=== PATIENT | female | born 1950 | race African-American/Black ===

== ENCOUNTER → 2016-08-10 | Outpatient (CLI) | payer MEDICARE, OTHER ==
--- NOTE | 2016-08-10 10:18 | MM ---
Reason for exam: follow-up at short interval from prior study. Last mammogram was performed 8 months ago. History: Patient is postmenopausal. Benign MG stereo VAD BX LT of the left breast, December 15, 2015. Benign US breast aspiration single LT of the left breast, December 15, 2015. Benign US biopsy breast VAD LT of the left breast, December 15, 2015. Benign US biopsy breast add'l VAD LT of the left breast, December 15, 2015. Reductions of both breasts, January 2005. Took hormonal contraceptives for 8 years beginning at age 16. Took estrogen for 3 years beginning at age 40. Physical Findings: Nurse did not find any significant physical abnormalities on exam. MG 3D Diag Mammo W/Cad SIRENA Bilateral CC and MLO view(s) were taken. Prior study comparison: December 01, 2015, left breast MG 3d diag mammo w/cad LT. March 25, 2015, bilateral MG diagnostic mammo w CAD SIRENA. The breast tissue is heterogeneously dense. This may lower the sensitivity of mammography. Previous ultrasound biopsies in the left breast. There is chronic nodularity bilaterally. No significant new findings when compared with previous films. These results were verbally communicated with the patient and result sheet given to the patient on 08/10/16. ASSESSMENT: Benign, BI-RAD 2 RECOMMENDATION: Routine screening mammogram of both breasts in 1 year.
== END | disposition home or self-care (01) ==
LOC: RADMAMWWP 08:17
PROVIDERS: ATTEND Surgery
DX: R92.8 Other abnormal and inconclusive findings on diagnostic imaging of breast (principal)
CPT/HCPCS: G0204; G0279

== ENCOUNTER 2017-11-12 04:54 | Inpatient (IN) | payer MEDICARE, OTHER ==
--- NOTE | 2017-11-12 05:15 | ED ---
Altered Mental Status HPI - General Chief Complaint: Altered Mental Status Stated Complaint: Bronchitis, Altered Mental Status Time Seen by Provider: 11/12/17 05:04 Source: patient Mode of arrival: wheelchair Limitations: altered mental status - History of Present Illness Initial Comments: This patient is a 67-year-old woman who presents to be evaluated for altered mental status. Patient and her daughter are jointly giving history. Patient's daughter reports that she had spoken with her mother yesterday, approximately 18 hours ago, and the patient was feeling a little under the weather, but not awful. The patient's daughter states that at 3 this morning the patient called her to state that she was feeling worse. The patient was reportedly somewhat confused and disoriented. Patient is maintaining that she just feels generally unwell, being fatigued and having generalized weakness. She denies any focal complaint. She is not having any pain currently other than chronic back pain for which she does take home pain medication. She is not having chest pain, headache, neck pain, or abdominal pain. No dyspnea. She does have a cough but they note that she is currently being treated for bronchitis. No change in urination or bowel movements. MD Complaint: altered mental status, confusion -: hour(s) Severity: moderate Consistency of Symptoms: getting worse Context: history of similar presentation - Related Data Home Medications Medication Instructions Recorded Confirmed Amitriptyline HCl [Elavil] 01/11/15 09/01/15 Hydrocodone/Acetaminophen [Vicodin 1 each PO Q4HR PRN 01/11/15 09/01/15 5-300 mg Tablet] Ketorolac [Toradol] 01/11/15 09/01/15 Losartan-Hctz 50-12.5 mg [Hyzaar 1 tab PO DAILY 01/11/15 09/01/15 50-12.5] Morphine Sulfate ER [Ms Contin] 1 tab PO BID 01/11/15 09/01/15 Rosuvastatin [Crestor] 1 tab PO HS 01/11/15 09/01/15 Etodolac [Lodine] 400 mg PO PRN 09/01/15 09/01/15 Previous Rx's Medication Instructions Recorded Azithromycin [Zithromax Z-pack] 0 mg PO DIRECTED #6 tab 09/01/15 Allergies Allergy/AdvReac Type Severity Reaction Status Date / Time No Known Allergies Allergy Verified 11/12/17 05:01 Review of Systems ROS Statement: Those systems with pertinent positive or pertinent negative responses have been documented in the HPI. ROS Other: All systems not noted in ROS Statement are negative. Constitutional: Reports: weakness (Generalized). Denies: fever, chills Respiratory: Reports: cough. Denies: dyspnea, wheezes, hemoptysis Cardiovascular: Denies: chest pain, edema, syncope Gastrointestinal: Denies: abdominal pain, vomiting, diarrhea Genitourinary: Denies: dysuria, hematuria Musculoskeletal: Reports: back pain (Chronic) Skin: Denies: rash Neurological: Reports: weakness (Patient has some mild residual left-sided weakness related to a stroke.). Denies: headache, numbness Past Medical History Past Medical History: CVA/TIA, Hyperlipidemia, Hypertension, Musculoskeletal Disorder Additional Past Medical History / Comment(s): BACK PAIN, History of Any Multi-Drug Resistant Organisms: None Reported Past Surgical History: Hysterectomy Additional Past Surgical History / Comment(s): neurostimulator 06/2013. hammer toe 10/22, Past Psychological History: No Psychological Hx Reported Smoking Status: Former smoker Past Alcohol Use History: None Reported Past Drug Use History: None Reported General Exam Limitations: altered mental status General appearance: alert, in no apparent distress, obese Head exam: Present: atraumatic, normocephalic Eye exam: Present: normal appearance, PERRL, EOMI. Absent: scleral icterus, conjunctival injection ENT exam: Present: normal oropharynx Respiratory exam: Present: rhonchi. Absent: respiratory distress, wheezes, rales, stridor, accessory muscle use, decreased breath sounds Cardiovascular Exam: Present: regular rate, normal rhythm, normal heart sounds. Absent: systolic murmur, diastolic murmur, rubs, gallop GI/Abdominal exam: Present: soft. Absent: distended, tenderness, guarding, rebound, mass Extremities exam: Present: normal inspection, normal capillary refill. Absent: pedal edema, calf tenderness Neurological exam: Present: alert, motor sensory deficit (There is some mild subjective weakness of both the upper and lower extremity on the left, still greater than 4 out of 5). Absent: oriented X3 (Patient has oriented to person and place but not exact date.), CN II-XII intact (Mild left facial droop) Skin exam: Present: warm, dry, intact, normal color. Absent: rash Course Vital Signs 11/12/17 11/12/17 04:57 07:06 Temperature 99.9 F H Pulse Rate 99 Respiratory 18 Rate Blood Pressure 190/92 176/76 O2 Sat by Pulse 98 Oximetry Medical Decision Making - Medical Decision Making Patient's 67-year-old woman presenting for altered mental status. She has had a number days of what they had considered be bronchitis, mainly cough with some sputum. There does appear to be a bit of a retrocardiac infiltrate, and we'll treat patient for pneumonia and early sepsis. - Lab Data Result diagrams: 11/12/17 05:10 11/12/17 05:10 Lab Results 11/12/17 11/12/17 11/12/17 Range/Units 05:05 05:10 05:10 WBC 11.8 H (3.8-10.6) k/uL RBC 4.33 (3.80-5.40) m/uL Hgb 12.9 (11.4-16.0) gm/dL Hct 38.8 (34.0-46.0) % MCV 89.5 (80.0-100.0) fL MCH 29.7 (25.0-35.0) pg MCHC 33.2 (31.0-37.0) g/dL RDW 13.7 (11.5-15.5) % Plt Count 341 (150-450) k/uL Neutrophils % 81 % Lymphocytes % 13 % Monocytes % 4 % Eosinophils % 1 % Basophils % 0 % Neutrophils # 9.5 H (1.3-7.7) k/uL Lymphocytes # 1.5 (1.0-4.8) k/uL Monocytes # 0.5 (0-1.0) k/uL Eosinophils # 0.1 (0-0.7) k/uL Basophils # 0.0 (0-0.2) k/uL PT (9.0-12.0) sec INR (<1.2) APTT (22.0-30.0) sec Sodium 145 (137-145) mmol/L Potassium 3.8 (3.5-5.1) mmol/L Chloride 102 (98-107) mmol/L Carbon Dioxide 27 (22-30) mmol/L Anion Gap 16 mmol/L BUN 10 (7-17) mg/dL Creatinine 0.70 (0.52-1.04) mg/dL Est GFR (CKD-EPI)AfAm >90 (>60 ml/min/1.73 sqM) Est GFR (CKD-EPI)NonAf 89 (>60 ml/min/1.73 sqM) Glucose 155 H (74-99) mg/dL POC Glucose (mg/dL) 144 H (75-99) mg/dL POC Glu Squeegee Operator ID Kana, Ghislaine Plasma Lactic Acid Erik (0.7-2.0) mmol/L Calcium 10.1 (8.4-10.2) mg/dL Total Bilirubin 0.3 (0.2-1.3) mg/dL AST 21 (14-36) U/L ALT 18 (9-52) U/L Alkaline Phosphatase 79 (38-126) U/L Troponin I (0.000-0.034) ng/mL Total Protein 7.4 (6.3-8.2) g/dL Albumin 4.5 (3.5-5.0) g/dL Urine Color Urine Appearance (Clear) Urine pH (5.0-8.0) Ur Specific [place] (1.001-1.035) Urine Protein (Negative) Urine Glucose (UA) (Negative) Urine Ketones (Negative) Urine Blood (Negative) Urine Nitrite (Negative) Urine Bilirubin (Negative) Urine Urobilinogen (<2.0) mg/dL Ur Leukocyte Esterase (Negative) Urine RBC (0-5) /hpf Urine WBC (0-5) /hpf Ur Squamous Epith Cells (0-4) /hpf Urine Bacteria (None) /hpf Urine Mucus (None) /hpf Urine Opiates Screen (NotDetected) Ur Oxycodone Screen (NotDetected) Urine Methadone Screen (NotDetected) Ur Propoxyphene Screen (NotDetected) Ur Barbiturates Screen (NotDetected) U Tricyclic Antidepress (NotDetected) Ur Phencyclidine Scrn (NotDetected) Ur Amphetamines Screen (NotDetected) U Methamphetamines Scrn (NotDetected) U Benzodiazepines Scrn (NotDetected) Urine Cocaine Screen (NotDetected) U Marijuana (THC) Screen (NotDetected) 05/06/18 05/06/18 05/06/18 Range/Units 05:10 05:10 05:10 WBC (3.8-10.6) k/uL RBC (3.80-5.40) m/uL Hgb (11.4-16.0) gm/dL Hct (34.0-46.0) % MCV (80.0-100.0) fL MCH (25.0-35.0) pg MCHC (31.0-37.0) g/dL RDW (11.5-15.5) % Plt Count (150-450) k/uL Neutrophils % % Lymphocytes % % Monocytes % % Eosinophils % % Basophils % % Neutrophils # (1.3-7.7) k/uL Lymphocytes # (1.0-4.8) k/uL Monocytes # (0-1.0) k/uL Eosinophils # (0-0.7) k/uL Basophils # (0-0.2) k/uL PT 9.8 (9.0-12.0) sec INR 1.0 (<1.2) APTT 22.4 (22.0-30.0) sec Sodium (137-145) mmol/L Potassium (3.5-5.1) mmol/L Chloride (98-107) mmol/L Carbon Dioxide (22-30) mmol/L Anion Gap mmol/L BUN (7-17) mg/dL Creatinine (0.52-1.04) mg/dL Est GFR (CKD-EPI)AfAm (>60 ml/min/1.73 sqM) Est GFR (CKD-EPI)NonAf (>60 ml/min/1.73 sqM) Glucose (74-99) mg/dL POC Glucose (mg/dL) (75-99) mg/dL POC Glu Squeegee Operator ID Plasma Lactic Acid Erik 2.5 H* (0.7-2.0) mmol/L Calcium (8.4-10.2) mg/dL Total Bilirubin (0.2-1.3) mg/dL AST (14-36) U/L ALT (9-52) U/L Alkaline Phosphatase (38-126) U/L Troponin I <0.012 (0.000-0.034) ng/mL Total Protein (6.3-8.2) g/dL Albumin (3.5-5.0) g/dL Urine Color Urine Appearance (Clear) Urine pH (5.0-8.0) Ur Specific [place] (1.001-1.035) Urine Protein (Negative) Urine Glucose (UA) (Negative) Urine Ketones (Negative) Urine Blood (Negative) Urine Nitrite (Negative) Urine Bilirubin (Negative) Urine Urobilinogen (<2.0) mg/dL Ur Leukocyte Esterase (Negative) Urine RBC (0-5) /hpf Urine WBC (0-5) /hpf Ur Squamous Epith Cells (0-4) /hpf Urine Bacteria (None) /hpf Urine Mucus (None) /hpf Urine Opiates Screen (NotDetected) Ur Oxycodone Screen (NotDetected) Urine Methadone Screen (NotDetected) Ur Propoxyphene Screen (NotDetected) Ur Barbiturates Screen (NotDetected) U Tricyclic Antidepress (NotDetected) Ur Phencyclidine Scrn (NotDetected) Ur Amphetamines Screen (NotDetected) U Methamphetamines Scrn (NotDetected) U Benzodiazepines Scrn (NotDetected) Urine Cocaine Screen (NotDetected) U Marijuana (THC) Screen (NotDetected) 11/12/17 Range/Units 06:50 WBC (3.8-10.6) k/uL RBC (3.80-5.40) m/uL Hgb (11.4-16.0) gm/dL Hct (34.0-46.0) % MCV (80.0-100.0) fL MCH (25.0-35.0) pg MCHC (31.0-37.0) g/dL RDW (11.5-15.5) % Plt Count (150-450) k/uL Neutrophils % % Lymphocytes % % Monocytes % % Eosinophils % % Basophils % % Neutrophils # (1.3-7.7) k/uL Lymphocytes # (1.0-4.8) k/uL Monocytes # (0-1.0) k/uL Eosinophils # (0-0.7) k/uL Basophils # (0-0.2) k/uL PT (9.0-12.0) sec INR (<1.2) APTT (22.0-30.0) sec Sodium (137-145) mmol/L Potassium (3.5-5.1) mmol/L Chloride (98-107) mmol/L Carbon Dioxide (22-30) mmol/L Anion Gap mmol/L BUN (7-17) mg/dL Creatinine (0.52-1.04) mg/dL Est GFR (CKD-EPI)AfAm (>60 ml/min/1.73 sqM) Est GFR (CKD-EPI)NonAf (>60 ml/min/1.73 sqM) Glucose (74-99) mg/dL POC Glucose (mg/dL) (75-99) mg/dL POC Glu Squeegee Operator ID Plasma Lactic Acid Erik (0.7-2.0) mmol/L Calcium (8.4-10.2) mg/dL Total Bilirubin (0.2-1.3) mg/dL AST (14-36) U/L ALT (9-52) U/L Alkaline Phosphatase (38-126) U/L Troponin I (0.000-0.034) ng/mL Total Protein (6.3-8.2) g/dL Albumin (3.5-5.0) g/dL Urine Color Yellow Urine Appearance Clear (Clear) Urine pH 7.5 (5.0-8.0) Ur Specific [place] 1.011 (1.001-1.035) Urine Protein Trace H (Negative) Urine Glucose (UA) Negative (Negative) Urine Ketones Trace H (Negative) Urine Blood Trace H (Negative) Urine Nitrite Negative (Negative) Urine Bilirubin 1+ H (Negative) Urine Urobilinogen <2.0 (<2.0) mg/dL Ur Leukocyte Esterase Negative (Negative) Urine RBC 6 H (0-5) /hpf Urine WBC 2 (0-5) /hpf Ur Squamous Epith Cells <1 (0-4) /hpf Urine Bacteria Few H (None) /hpf Urine Mucus Rare H (None) /hpf Urine Opiates Screen Detected H (NotDetected) Ur Oxycodone Screen Not Detected (NotDetected) Urine Methadone Screen Not Detected (NotDetected) Ur Propoxyphene Screen Not Detected (NotDetected) Ur Barbiturates Screen Not Detected (NotDetected) U Tricyclic Antidepress Detected H (NotDetected) Ur Phencyclidine Scrn Not Detected (NotDetected) Ur Amphetamines Screen Not Detected (NotDetected) U Methamphetamines Scrn Not Detected (NotDetected) U Benzodiazepines Scrn Not Detected (NotDetected) Urine Cocaine Screen Not Detected (NotDetected) U Marijuana (THC) Screen Not Detected (NotDetected) - EKG Data -: EKG Interpreted by Me EKG shows normal: sinus rhythm, axis (Normal), intervals (Normal), QRS complexes (Normal) Rate: normal (Rate approximately 94 bpm) Interpretation: nonspecific ST-T wave changes Disposition Clinical Impression: Altered mental status, Sepsis, Pneumonia Disposition: ADMITTED IP TO THIS HOSP Condition: Fair Is patient prescribed a controlled substance at d/c from ED?: No Referrals: Tan Peters DO [Primary Care Provider] - 1-2 days
[2017-11-12 05:16] LABS: Glucose,Whole Blood 144 mg/dL (75-99)
[2017-11-12] MEDS ORDERED: MORPHINE SULFATE 4 MG/ML SYRINGE IV STA (05:26)
[2017-11-12 05:39] LABS: Basophils % (A) 0 %; Eosinophils # (A) 0.1 k/uL (0-0.7); Eosinophils % (A) 1 %; HCT 38.8 % (34.0-46.0); HGB 12.9 gm/dL (11.4-16.0); Lymphocytes # (A) 1.5 k/uL (1.0-4.8); Lymphocytes % (A) 13 %; MCH 29.7 pg (25.0-35.0); MCHC 33.2 g/dL (31.0-37.0); MCV 89.5 fL (80.0-100.0); Mean Platelet Volume 6.6; Monocytes # (A) 0.5 k/uL (0-1.0); Monocytes % (A) 4 %; Neutrophils # (A) 9.5 k/uL (1.3-7.7); Neutrophils % (A) 81 %; Platelet Count 341 k/uL (150-450); RBC 4.33 m/uL (3.80-5.40); RDW 13.7 % (11.5-15.5); WBC 11.8 k/uL (3.8-10.6)
[2017-11-12 05:51] LABS: Partial Thromboplastin Time 22.4 sec (22.0-30.0); Prothrombin Time 9.8 sec (9.0-12.0)
[2017-11-12 05:52] LABS: ALT 18 U/L (9-52); AST 21 U/L (14-36); Albumin 4.5 g/dL (3.5-5.0); Alkaline Phosphatase 79 U/L (38-126); Anion Gap 16 mmol/L; Blood Urea Nitrogen 10 mg/dL (7-17); Calcium 10.1 mg/dL (8.4-10.2); Carbon Dioxide 27 mmol/L (22-30); Chloride 102 mmol/L (98-107); Glucose 155 mg/dL (74-99); Potassium 3.8 mmol/L (3.5-5.1); Sodium 145 mmol/L (137-145); Total Bilirubin 0.3 mg/dL (0.2-1.3); Total Protein 7.4 g/dL (6.3-8.2)
[2017-11-12] MEDS ORDERED: LOSARTAN-HCTZ 50-12.5 MG 1 EACH TAB PO ONE (06:45)
--- NOTE | 2017-11-12 06:57 | CT ---
PROCEDURE: CT HEAD Without Contrast HISTORY: 67-year-old female with altered mental status. COMPARISON: CT head 05/23/2010 TECHNIQUE: CT imaging was obtained through the head. Coronal and sagittal reformations were performed. DOSE: Total Exam volume computed tomography dose index (CTDIvol) = 60.3 mGy and Dose Length Product (DLP) = 1017.9 mGY-cm. This CT exam was performed using one or more of the following dose reduction techniques: automated exposure control, adjustment of the mA and/or kV according to patient size, and/or use of iterative reconstruction technique. FINDINGS: There is no evidence of acute intracranial hemorrhage, mass effect, or midline shift. The ventricles, sulci, and cisternal spaces are within normal limits for age. The tan-white matter differentiation is preserved. Intracranial arterial calcifications. The bony structures are intact. Visualized paranasal sinuses and mastoid air cells are clear. Visualized portions of the orbits are within normal limits. IMPRESSION: 1. No CT evidence of acute intracranial abnormality. 2. Other findings as detailed above.
[2017-11-12 07:21] LABS: Appearance,Urine Clear (Clear); Bacteria,Urine Few /hpf; Bilirubin,Urine 1+ (Negative); Blood,Urine Trace (Negative); Color,Urine Yellow; Glucose,Urine (UA) Negative (Negative); Ketones,Urine Trace (Negative); Leukocyte Esterase,Urine Negative (Negative); Mucus,Urine Rare /hpf; Nitrite,Urine Negative (Negative); PH, Urine 7.5 (5.0-8.0); Protein,Urine Trace (Negative); RBC,Urine 6 /hpf (0-5); Specific Gravity,Urine 1.011 (1.001-1.035); Squamous Epithelial Cell,Urine <1 /hpf (0-4); Urobilinogen,Urine <2.0 mg/dL (<2.0); WBC,Urine 2 /hpf (0-5)
[2017-11-12 07:37] LABS: Phencyclidine Screen,Urine Not Detected (NotDetected); Urn Cannabinoid Scrn Not Detected (NotDetected)
[2017-11-12 07:38] LABS: Amphetamine Screen,Urine Not Detected (NotDetected); Barbiturate Screen,Urine Not Detected (NotDetected); Benzodiazepines Screen,Urine Not Detected (NotDetected); Cocaine Screen,Urine Not Detected (NotDetected); Methadone Screen, Urine Not Detected (NotDetected); Opiate Screen,Urine Detected (NotDetected); Oxycodone Screen, Urine Not Detected (NotDetected); Tricyclic Antidepressant,Urine Detected (NotDetected)
[2017-11-12] MEDS ORDERED: LEVOFLOXACIN 750MG-D5W PMX 750 MG in DEXTROSE/WATER 1 150ML.BAG IVPB STA (08:21)
[2017-11-12] MEDS ORDERED: SODIUM CHLORIDE 0.9% 2,000 ML IV ONE (08:23)
--- NOTE | 2017-11-12 08:52 | XR ---
EXAMINATION TYPE: XR chest 2V DATE OF EXAM: 11/12/2017 HISTORY: altered mental status. REFERENCE: NONE. FINDINGS: There is a pain stimulator projecting over the thoracic spine. The heart is not enlarged. There is some increased opacity at the left lung base. There is blunting o f the CP angle. The right lung is clear. IMPRESSION: I SUSPECT SOME LEFT LOWER LOBE AIRSPACE DISEASE WELL A SMALL LEFT EFFUSION.
[2017-11-12] MEDS ORDERED: FAMOTIDINE 20 MG/2 ML VIAL IV SCH (09:00)
[2017-11-12] MEDS ORDERED: LOSARTAN-HCTZ 50-12.5 MG 1 EACH TAB PO SCH (09:00)
[2017-11-12] MEDS ORDERED: MORPHINE SULFATE ER 30 MG TABLET PO SCH (09:00)
[2017-11-12] MEDS: HYDROcodone/APAP 5-325MG 1 EACH TAB PO PRN ×3 (09:06→17:52)
[2017-11-12] MEDS ORDERED: KETOROLAC 30 MG/ML 1 ML VIAL IVP PRN (10:36)
--- NOTE | 2017-11-12 11:15 | P.HPIM ---
History of Present Illness 67-year-old pleasant female came in with comments of Cough has been going on for about 4-5 days patient started having confusion yesterday because of which patient was brought in here.. Patient is unable to bring up anything is to smoking more than 20 years ago. Patient denied any fever chills patient had low -grade fever here patient does have a elevated white blood cell count patient was found to have infiltrate in the left lower lung jaimes highly suspicious for pneumonia patient is admitted for pneumonia. Her mental status did improve patient is alert oriented times close to 2-3 patient was more confused yesterday. Patient is coughing and actually started throwing up now. Patient is on morphine for chronic low back pain. Patient denied dysuria. UA is not impressive for urinary tract infection. Review of Systems REVIEW OF SYSTEMS: CONSTITUTIONAL: No fever, no malaise, no fatigue. HEENT: No recent visual problems or hearing problems. Denied any sore throat. CARDIOVASCULAR: No chest pain, orthopnea, PND, no palpitations, no syncope. PULMONARY: No shortness of breath. GASTROINTESTINAL: No diarrhea, no nausea, no vomiting, no abdominal pain. Normoactive bowel sounds. NEUROLOGICAL: No headaches, no weakness, no numbness. HEMATOLOGICAL: Denies any bleeding or petechiae. GENITOURINARY: Denies any burning micturition, frequency, or urgency. MUSCULOSKELETAL/RHEUMATOLOGICAL: Denies any joint pain, swelling, or any muscle pain. ENDOCRINE: Denies any polyuria or polydipsia. The rest of the 14-point review of systems is negative. Past Medical History Past Medical History: CVA/TIA, Hyperlipidemia, Hypertension, Musculoskeletal Disorder, Osteoarthritis (OA) Additional Past Medical History / Comment(s): BACK PAIN, bronchitis History of Any Multi-Drug Resistant Organisms: None Reported Past Surgical History: Hysterectomy Additional Past Surgical History / Comment(s): neurostimulator lower lumbar 2012 current. hammer toe 10/22,. breast reduction 2004 Past Psychological History: No Psychological Hx Reported Smoking Status: Former smoker Past Alcohol Use History: None Reported Past Drug Use History: None Reported - Past Family History Mother Family Medical History: CVA/TIA Father Additional Family Medical History / Comment(s): bone cancer Brother(s) Additional Family Medical History / Comment(s): bone cancer Medications and Allergies Home Medications Medication Instructions Recorded Confirmed Type Amitriptyline HCl [Elavil] 150 mg PO HS 01/11/15 09/01/15 History Hydrocodone/Acetaminophen [Vicodin 1 each PO Q4HR PRN 01/11/15 09/01/15 History 5-300 mg Tablet] Ketorolac [Toradol] 01/11/15 09/01/15 History Losartan-Hctz 50-12.5 mg [Hyzaar 1 tab PO DAILY 01/11/15 09/01/15 History 50-12.5] Morphine Sulfate ER [Ms Contin] 1 tab PO BID 01/11/15 09/01/15 History Rosuvastatin [Crestor] 1 tab PO DAILY 01/11/15 09/01/15 History Azithromycin [Zithromax Z-pack] 0 mg PO DIRECTED #6 tab 09/01/15 Rx Etodolac [Lodine] 400 mg PO DAILY PRN 09/01/15 11/12/17 History Allergies Allergy/AdvReac Type Severity Reaction Status Date / Time No Known Allergies Allergy Verified 11/12/17 05:01 Physical Exam Vitals: Vital Signs Temp Pulse Pulse Resp BP BP Pulse Ox 11/12/17 10:04 99.5 F 89 20 174/84 96 11/12/17 09:00 98.8 F 92 18 181/81 99 11/12/17 07:06 176/76 11/12/17 04:57 99.9 F H 99 18 190/92 98 Intake and Output 11/11/17 11/12/17 11/12/17 22:59 06:59 14:59 Other: Weight 68.039 kg PHYSICAL EXAMINATION: GENERAL: The patient is alert and oriented x3, not in any acute distress. Well developed, well nourished. HEENT: Pupils are round and equally reacting to light. EOMI. No scleral icterus. No conjunctival pallor. Normocephalic, atraumatic. No pharyngeal erythema. No thyromegaly. CARDIOVASCULAR: S1 and S2 present. No murmurs, rubs, or gallops. PULMONARY: Crackles in the left posterior inferior lung jaimes and on for sounds ABDOMEN: Soft, nontender, nondistended, normoactive bowel sounds. No palpable organomegaly. MUSCULOSKELETAL: No joint swelling or deformity. EXTREMITIES: No cyanosis, clubbing, or pedal edema. NEUROLOGICAL: Gross neurological examination did not reveal any focal deficits. SKIN: No rashes. Results CBC & Chem 7: 11/12/17 05:10 11/12/17 05:10 Labs: Abnormal Lab Results - Last 24 Hours (Table) 11/12/17 11/12/17 11/12/17 Range/Units 05:05 05:10 05:10 WBC 11.8 H (3.8-10.6) k/uL Neutrophils # 9.5 H (1.3-7.7) k/uL Glucose 155 H (74-99) mg/dL POC Glucose (mg/dL) 144 H (75-99) mg/dL Plasma Lactic Acid Erik (0.7-2.0) mmol/L Urine Protein (Negative) Urine Ketones (Negative) Urine Blood (Negative) Urine Bilirubin (Negative) Urine RBC (0-5) /hpf Urine Bacteria (None) /hpf Urine Mucus (None) /hpf Urine Opiates Screen (NotDetected) U Tricyclic Antidepress (NotDetected) 11/12/17 11/12/17 Range/Units 05:10 06:50 WBC (3.8-10.6) k/uL Neutrophils # (1.3-7.7) k/uL Glucose (74-99) mg/dL POC Glucose (mg/dL) (75-99) mg/dL Plasma Lactic Acid Erik 2.5 H* (0.7-2.0) mmol/L Urine Protein Trace H (Negative) Urine Ketones Trace H (Negative) Urine Blood Trace H (Negative) Urine Bilirubin 1+ H (Negative) Urine RBC 6 H (0-5) /hpf Urine Bacteria Few H (None) /hpf Urine Mucus Rare H (None) /hpf Urine Opiates Screen Detected H (NotDetected) U Tricyclic Antidepress Detected H (NotDetected) Thrombosis Risk Factor Assmnt - Choose All That Apply Each Risk Factor Represents 2 Points: Age 61-74 years Thrombosis Risk Factor Assessment Total Risk Factor Score: 2 Thrombosis Risk Factor Assessment Level: Low Risk Assessment and Plan Plan: -Altered mental status secondary to toxic encephalopathy from possible pneumonia patient is on antibiotics reflux and was discontinued patient was started on Rocephin and azithromycin sputum cultures will be obtain blood cultures were ordered -Community-acquired pneumonia possible pneumococcal pneumonia lobar pneumonia and sepsis secondary to that -Chronic low back pain morphine will be held patient was started on Toradol for pain. Patient was started on GI prophylaxis -Nausea vomiting secondary to pneumonia -Type 2 diabetes mellitus: Patient resumed on home regimen Accu-Cheks and attrition of the insulin depending on her blood sugars -Hyperlipidemia Hypertension -Gastroesophageal reflux disease. For above-mentioned chronic medical problems patient resumed on continued on home medications patient blood pressure is bit elevated which is expected improvement at this end this is secondary to IV fluids
[2017-11-12] MEDS: cefTRIAXone IN SWFI 1,000 MG/10 ML SYRINGE IVP SCH (11:21)
[2017-11-12] MEDS: PANTOPRAZOLE 40 MG/10 ML VIAL IVP SCH (11:30)
[2017-11-12] MEDS: ONDANSETRON 4 MG/2 ML VIAL IVP PRN ×2 (11:30→21:04)
[2017-11-12] MEDS: IPRATROPIUM-ALBUTEROL 3 ML NEB INHALATION PRN (19:01)
[2017-11-12] MEDS ORDERED: ATORVASTATIN 10 MG TAB PO SCH (21:00)
[2017-11-12] MEDS ORDERED: AMITRIPTYLINE HCL 50 MG TAB PO SCH (21:00)
[2017-11-12] MEDS: HEPARIN SODIUM,PORCINE 5,000 UNIT/ML 1 ML VIAL SQ SCH (21:05)
[2017-11-12] MEDS: MORPHINE SULFATE ER 30 MG TABLET PO SCH (21:10)
[2017-11-13 06:28] VITALS: BP 129/73; PULSE 85; TEMP 98
[2017-11-13] MEDS: IPRATROPIUM-ALBUTEROL 3 ML NEB INHALATION PRN (06:54)
[2017-11-13] MEDS: MORPHINE SULFATE ER 30 MG TABLET PO SCH (07:42)
[2017-11-13] MEDS: cefTRIAXone IN SWFI 1,000 MG/10 ML SYRINGE IVP SCH (07:43)
[2017-11-13] MEDS: HEPARIN SODIUM,PORCINE 5,000 UNIT/ML 1 ML VIAL SQ SCH (07:43)
[2017-11-13] MEDS: PANTOPRAZOLE 40 MG/10 ML VIAL IVP SCH (07:43)
[2017-11-13 08:12] VITALS: RESP 16
[2017-11-13 08:48] LABS: HCT 38.7 % (34.0-46.0); HGB 12.4 gm/dL (11.4-16.0); MCH 29.3 pg (25.0-35.0); MCHC 32.1 g/dL (31.0-37.0); MCV 91.5 fL (80.0-100.0); Mean Platelet Volume 6.6; Platelet Count 330 k/uL (150-450); RBC 4.23 m/uL (3.80-5.40); RDW 13.8 % (11.5-15.5); WBC 10.5 k/uL (3.8-10.6)
[2017-11-13] MEDS ORDERED: LEVOFLOXACIN 750MG-D5W PMX 750 MG in DEXTROSE/WATER 1 150ML.BAG IVPB SCH (09:00)
[2017-11-13] MEDS ORDERED: AZITHROMYCIN 500 MG TAB PO SCH (09:00)
[2017-11-13] MEDS ORDERED: LOSARTAN-HCTZ 50-12.5 MG 1 EACH TAB PO SCH (09:00)
[2017-11-13 09:11] LABS: Calcium 8.8 mg/dL (8.4-10.2); Potassium 3.5 mmol/L (3.5-5.1)
[2017-11-13] MEDS: HYDROcodone/APAP 5-325MG 1 EACH TAB PO PRN (10:42)
--- NOTE | 2017-11-13 17:12 | P.DS ---
Providers Date of admission: 11/12/17 08:23 Attending physician: Lavern Quiles Primary care physician: [facility] Course: Patient was admitted secondary to possible pneumonia contributing to metabolic and lactic patient is clinically doing well and patient the will be discharged today on Ceftin. PHYSICAL EXAMINATION: GENERAL: The patient is alert and oriented x3, not in any acute distress. Well developed, well nourished. HEENT: Pupils are round and equally reacting to light. EOMI. No scleral icterus. No conjunctival pallor. Normocephalic, atraumatic. No pharyngeal erythema. No thyromegaly. CARDIOVASCULAR: S1 and S2 present. No murmurs, rubs, or gallops. PULMONARY: Chest is clear to auscultation, no wheezing or crackles. ABDOMEN: Soft, nontender, nondistended, normoactive bowel sounds. No palpable organomegaly. MUSCULOSKELETAL: No joint swelling or deformity. EXTREMITIES: No cyanosis, clubbing, or pedal edema. NEUROLOGICAL: Gross neurological examination did not reveal any focal deficits. SKIN: No rashes. Assessment and Plan Plan: -Altered mental status secondary to toxic encephalopathy from possible pneumonia -Community-acquired pneumonia possible pneumococcal pneumonia lobar pneumonia and sepsis secondary to that -Chronic low back -Nausea vomiting secondary to pneumonia -Type 2 diabetes mellitus: Patient resumed on home regimen Accu-Cheks and attrition of the insulin depending on her blood sugars -Hyperlipidemia Hypertension -Gastroesophageal reflux disease. Patient Condition at Discharge: Fair Plan - Discharge Summary Discharge Rx Participant: Yes New Discharge Prescriptions: New Albuterol Inhaler [Ventolin Hfa Inhaler] 1 - 2 puff INHALATION Q6HR PRN #1 inhaler PRN Reason: Shortness Of Breath Or Wheezing Cefuroxime Axetil [Ceftin] 500 mg PO BID #14 tab No Action Morphine Sulfate ER [Ms Contin] 30 mg PO BID Amitriptyline HCl [Elavil] 150 mg PO HS Potassium Chloride [Klor-Con Sprinkle] 10 meq PO QID HYDROcodone/APAP 7.5-325MG [[place] 7.5-325] 1 tab PO BID PRN PRN Reason: Pain Losartan/Hydrochlorothiazide [Losartan-Hctz 100-12.5 mg Tab] 1 tab PO DAILY Gabapentin [Neurontin] 300 mg PO TID Cyclobenzaprine [Flexeril] 10 mg PO BID Baclofen [Lioresal] 10 mg PO TID Diclofenac Sodium [Voltaren Gel] 2 gram TOPICAL DAILY Discharge Medication List Amitriptyline HCl [Elavil] 150 mg PO HS 01/11/15 [History] Morphine Sulfate ER [Ms Contin] 30 mg PO BID 01/11/15 [History] Baclofen [Lioresal] 10 mg PO TID 11/12/17 [History] Cyclobenzaprine [Flexeril] 10 mg PO BID 11/12/17 [History] Diclofenac Sodium [Voltaren Gel] 2 gram TOPICAL DAILY 11/12/17 [History] Gabapentin [Neurontin] 300 mg PO TID 11/12/17 [History] HYDROcodone/APAP 7.5-325MG [[place] 7.5-325] 1 tab PO BID PRN 11/12/17 [History] Losartan/Hydrochlorothiazide [Losartan-Hctz 100-12.5 mg Tab] 1 tab PO DAILY 12/25 [History] Potassium Chloride [Klor-Con Sprinkle] 10 meq PO QID 11/12/17 [History] Albuterol Inhaler [Ventolin Hfa Inhaler] 1 - 2 puff INHALATION Q6HR PRN #1 inhaler 11/13/17 [Rx] Cefuroxime Axetil [Ceftin] 500 mg PO BID #14 tab 11/13/17 [Rx] Follow up Appointment(s)/Referral(s): Tan Peters DO [Primary Care Provider] - 11/22/17 3:40 pm Patient Instructions/Handouts: Pneumonia (DC) Discharge Disposition: HOME SELF-CARE
[2017-11-14] MEDS ORDERED: PANTOPRAZOLE 40 MG TABLET PO SCH (07:30)
== END 2017-11-13 16:28 | disposition home or self-care (01) | DRG 871 ==
LOC: EC 04:54 → 4MS4W 08:23
PROVIDERS: ADMIT Internal Medicine; ATTEND Internal Medicine
DX: A41.9 Sepsis, unspecified organism (principal); G92 Toxic encephalopathy; J13 Pneumonia due to Streptococcus pneumoniae; I69.954 Hemiplegia and hemiparesis following unspecified cerebrovascular disease affecting left non-dominant side; E11.9 Type 2 diabetes mellitus without complications; E78.5 Hyperlipidemia, unspecified; G89.29 Other chronic pain; I10 Essential (primary) hypertension; J40 Bronchitis, not specified as acute or chronic; K21.9 Gastro-esophageal reflux disease without esophagitis; M19.90 Unspecified osteoarthritis, unspecified site; M20.40 Other hammer toe(s) (acquired), unspecified foot; M54.5 Low back pain; R11.2 Nausea with vomiting, unspecified; Z79.891 Long term (current) use of opiate analgesic; Z79.899 Other long term (current) drug therapy; Z87.891 Personal history of nicotine dependence; Z90.710 Acquired absence of both cervix and uterus; Z80.8 Family history of malignant neoplasm of other organs or systems; Z82.3 Family history of stroke
CPT/HCPCS: 36415; 70450; 71046; 80048; 80053; 80306; 81001; 83605; 84484; 85025; 85027; 85610; 85730; 87040; 93005; 94640; 94760; 96365; 96375; 99285

== ENCOUNTER → 2017-11-17 | Outpatient (CLI) | payer MEDICARE, OTHER ==
--- NOTE | 2017-11-19 17:56 | CT ---
EXAMINATION TYPE: CT thor lumbar spine wo/w con DATE OF EXAM: 11/17/2017 COMPARISON: 03/20/2015 images only. Report was not available for comparison at the time of interpretat ion. HISTORY: Back pain. CT DLP: 1354 mGycm Automated exposure control for dose reduction was used. CONTRAST: Performed without and with IV Contrast, patient injected with 100 mL of Isovue M300. FINDINGS: Intrathecal neurostimulator is seen at the T7 vertebral level through the T8-T9 intervertebral disc s pace level dorsally. There is a mild grade 1 anterolisthesis of L4 on L5 with subsequent disc uncover ing. No pars interarticularis defects are seen. The vertebral body heights of the thoracolumbar spine maintain normal vertebral body height and alignment. There is an age-indeterminate noncomminuted, nondisplaced fracture of the inferior facet of L3 on the left. There is some periosteal reaction of the superior aspect and therefore this is suspected to be subacute. Facet arthropathy is present from L2 through S1. Remainder of the thoracolumbar spine are grossly intact. The visualized lungs demonstrates a 3 mm solid pulmonary nodule within the left upper lobe and interl obar fissure on series 3 image 38. There is also left greater than right minimal dependent subsegment al atelectasis. Severe coronary calcifications are partially imaged. Moderate calcific atheromatous c hanges of the abdominal aorta and its branches are seen. The visualized ribs are intact. No abnormal curvature of the thoracolumbar spine is noted. There is no gross evidence of spinal canal stenosis, neural foraminal narrowing or disc bulge within the thoracic spine, however spray artifact limits evaluation of the vertebral levels from T7 through T9. Additionally the spinal canal is limited on CT. At L1-L2 and L2-L3 there is no significant disc disease, spinal canal stenosis or neural foraminal na rrowing. At L3-L4 there is facet arthropathy and a broad-based disc bulge mildly narrowing the spinal canal an d bilateral neural foramen. At L4-L5 there is disc uncovering, a right eccentric broad-based disc bulge, ligamentum flavum buckli ng and facet arthropathy creating moderate right and mild left neural foraminal narrowing. At L4-L5 there is a small broad-based disc bulge without spinal canal stenosis or neural foraminal na rrowing. More well-corticated fractures of the inferior facets of L4 on the right L5 on the right are seen rel ating to chronic fracture deformities. IMPRESSION: 1. AGE INDETERMINANT FRACTURE OF THE INFERIOR FACET OF L3 ON THE LEFT, FAVORED TO BE AT LEAST SUBACUT E TO CHRONIC GIVEN THE ADJACENT PERIOSTEAL REACTION. CORRELATE FOR POINT TENDERNESS. 2. WELL-CORTICATED FRACTURES OF THE INFERIOR FACETS OF L4 ON L5 ON THE RIGHT, CHRONIC. 3. EVALUATE FOR DISC HERNIATION IS LIMITED ON CT, HOWEVER NO FOCAL GROSS EVIDENCE OF DISC HERNIATION IS SEEN. 4. ANTEROLISTHESIS OF L4 AND L5 THERE IS GRADE 1 WITH DISC UNCOVERING RESULTING IN MILD LEFT AND MODE RATE RIGHT NEURAL FORAMINAL NARROWING. 5. DEGENERATIVE DISC DISEASE AT L3-L4 CREATING MILD SPINAL CANAL STENOSIS AND MILD BILATERAL NEURAL F ORAMINAL NARROWING. 6. NO SIGNIFICANT DISC DISEASE WITHIN THE THORACIC SPINE. INTRATHECAL NERVE STIMULATOR DESCRIBED Louisa ELLIOTT. 7. 3 MM SOLID LEFT UPPER LOBE PULMONARY NODULE. CT THORAX COULD BE PERFORMED FOR FULL EVALUATION OF T HE CHEST. ALTERNATIVELY CT CHEST IS RECOMMENDED AT LEAST IN ONE YEAR TO FOLLOW STABILITY OF THE LEFT UPPER LOBE 3 MM PULMONARY NODULE.
== END | disposition home or self-care (01) ==
LOC: RADCTMAIN 14:35
PROVIDERS: ATTEND Psychiatry & Neurology Neurology
DX: S32.039A Unspecified fracture of third lumbar vertebra, initial encounter for closed fracture (principal); S32.049A Unspecified fracture of fourth lumbar vertebra, initial encounter for closed fracture; M48.061 Spinal stenosis, lumbar region without neurogenic claudication; M99.73 Connective tissue and disc stenosis of intervertebral foramina of lumbar region; M43.16 Spondylolisthesis, lumbar region; M51.36 Other intervertebral disc degeneration, lumbar region
CPT/HCPCS: 82565; 84520; 72130; 72133; 36415; Q9967

== ENCOUNTER → 2017-11-23 | Outpatient (CLI) | payer MEDICARE, OTHER ==
--- NOTE | 2017-11-24 09:46 | MM ---
Reason for exam: screening (asymptomatic). Last mammogram was performed 1 year and 4 months ago. History: Patient is postmenopausal. Benign MG stereo VAD BX LT of the left breast, December 15, 2015. Benign US breast aspiration single LT of the left breast, December 15, 2015. Benign US biopsy breast VAD LT of the left breast, December 15, 2015. Benign US biopsy breast add'l VAD LT of the left breast, December 15, 2015. Reductions of both breasts, January 2005. Took hormonal contraceptives for 8 years beginning at age 16. Took estrogen for 3 years beginning at age 40. Physical Findings: A clinical breast exam by your physician is recommended on an annual basis and results should be correlated with mammographic findings. MG 3D Screening Mammo W/Cad Bilateral CC and MLO view(s) were taken. Prior study comparison: August 10, 2016, bilateral MG 3d diag mammo w/cad SIRENA. December 01, 2015, left breast MG 3d diag mammo w/cad LT. There are scattered fibroglandular densities. There is chronic nodularity bilaterally. Increased nodularity right breast. This finding is changed when compared with previous exams. ASSESSMENT: Incomplete: need additional imaging evaluation, BI-RAD 0 RECOMMENDATION: Ultrasound of the right breast. [facility] will attempt to contact patient to return for ultrasound.
== END | disposition home or self-care (01) ==
LOC: RADMAMWWP 16:15
PROVIDERS: ATTEND Surgery
DX: Z12.31 Encounter for screening mammogram for malignant neoplasm of breast (principal)
CPT/HCPCS: 77063; 77067

== ENCOUNTER → 2017-11-30 | Outpatient (CLI) | payer MEDICARE, OTHER ==
--- NOTE | 2017-11-30 11:50 | USB ---
Reason for exam: additional evaluation requested from abnormal screening. History: Patient is postmenopausal. Benign MG stereo VAD BX LT of the left breast, December 15, 2015. Benign US breast aspiration single LT of the left breast, December 15, 2015. Benign US biopsy breast VAD LT of the left breast, December 15, 2015. Benign US biopsy breast add'l VAD LT of the left breast, December 15, 2015. Reductions of both breasts, January 2005. Took hormonal contraceptives for 8 years beginning at age 16. Took estrogen for 3 years beginning at age 40. Physical Findings: Nurse did not find any significant physical abnormalities on exam. US Breast Workup RT Right complete breast ultrasound includes all four quadrants, the retroareolar region and axilla. Finding demonstrates a 0.4 x 0.3 x 0.3cm oval, hypoechoic lesion at 2 o'clock appears to have increased through transmission, a 0.3 x 0.4 x 0.2cm oval, benign, cystic clusters at 2 o'clock, a 0.4 x 0.3 x 0.3cm oval, benign, cystic lesion at 3 o'clock, a 0.6 x 0.6 x 0.4cm oval, hypoechoic lesion at 4 o'clock appears to have increased through transmission, a 0.8 x 0.8 x 0.8cm oval, vascular, cystic cluster at 6 o'clock, thick walled and complex, biopsy recommended, a 0.9 x 0.4 x 0.3cm oval, cystic, complex lesion at 8 o'clock, a 0.4 x 0.8 x 0.3cm complex, cystic lesion at 9 o'clock, a 0.3 x 0.3 x 0.3cm oval, cystic lesion at 9 o'clock, a 0.7 x 0.5 x 1.0cm oval, cystic cluster at 10 o'clock and a axilla node. These results were verbally communicated with the patient and result sheet given to the patient on 11/30/17. ASSESSMENT: Suspicious, BI-RAD 4 RECOMMENDATION: Ultrasound core biopsy of the right breast. Called with mammographic findings and has scheduled an appointment for the patient for 12/07/17 at 2:[address] Marino. PRELIMINARY REPORT CALLED AND FAXED TO DR. MARINO ON 11/30/17.
== END | disposition home or self-care (01) ==
LOC: RADUSWWP 09:00
PROVIDERS: ATTEND Surgery
DX: R92.8 Other abnormal and inconclusive findings on diagnostic imaging of breast (principal)

== ENCOUNTER → 2017-12-07 | Outpatient (CLI) | payer MEDICARE, OTHER ==
[2017-12-07 14:57] VITALS: BP 116/82; PULSE 90; TEMP 98.2; BMI 32.2
--- NOTE | 2017-12-07 15:11 | P.PN ---
Progress Note - Text Progress Note Date: 12/07/17 Patient is status post bilateral mammogram as well as ultrasound of the right breast. Following review of the radiographs it is been recommended she undergo ultrasound-guided core biopsy of the right breast. The risks and benefits will be discussed with the patient this will be scheduled in the near future. There are several areas in the right breast of which the lesion at 6:00 appears to be the most worrisome. We will work with radiology to do core biopsy of the areas of greatest concern. Lungs: Clear Heart: Normal rate and rhythm Breast examination from prior abscesses that showed only scar tissue from reduction mammoplasty no discrete dominant masses or nodules of concern Impression/plan: 1. Abnormal radiographic findings in the right breast 2. Ultrasound core biopsy the areas of concern in the right breast with follow up after that
== END | disposition home or self-care (01) ==
LOC: WWCWWP 14:47
PROVIDERS: ATTEND Surgery
DX: Z53.9 Procedure and treatment not carried out, unspecified reason (principal)

== ENCOUNTER → 2017-12-18 | Day surgery (SDC) | payer MEDICARE, OTHER ==
[2017-12-18 07:54] VITALS: RESP 16; BMI 32.2
--- NOTE | 2017-12-18 09:44 | MM ---
EXAMINATION TYPE: MG diagnostic mammo RT wo CAD DATE OF EXAM: 12/18/2017 COMPARISON: NONE HISTORY: Post ultrasound-guided core biopsy TECHNIQUE: Craniocaudal and medial lateral right breast mammography FINDINGS: Clip is at 6:00 position expected region of the biopsy site. Appears to be chronic nodulari ty within the breast. IMPRESSION: 1. Of placement in the expected region from ultrasound. Recommendations: 1. Recommendations are pending pathology results.
[2017-12-18 09:47] VITALS: BP 116/64; PULSE 70; TEMP 98.1
--- NOTE | 2017-12-18 16:12 | USB ---
EXAMINATION TYPE: US biopsy breast VAD RT DATE OF EXAM: 12/18/2017 CLINICAL HISTORY: R92.8 ABN MAMMO. TECHNIQUE: Ultrasound guided core biopsy of right breast. COMPARISON: 11/30/2017 FINDINGS: The procedure of ultrasound guided core biopsy was explained to the patient. Benefits, alternatives, and risks were discussed. An informed consent was then obtained. A timeout was performed. The patient was placed in supine positioning for imaging and for the procedure. The overlying skin was prepped and draped in usual sterile fashion. Lidocaine buffered with bicarbonate was used as anesthetic into the skin and subcutaneous tissue up to area of concern in the right breast. A small skin dorothea was made with surgical scalpel. Under ultrasound guidance, a 12-gauge vacuum assisted biopsy gun device was used to obtain 6 core samples. Following this, a biopsy clip was left in lesion. There was collapse of one of the cysts. Partial collapse of the second cyst was present. The third does not appear to collapse during the procedure. The patient tolerated the procedure well without any immediate complication. Patient was transferred to mammography for postprocedure mammogram for clip placement. The patient was kept in the radiology department for short stay after the procedure and then discharged home in stable condition. Discharge instructions were discussed with patient. The patient follow-up with her physician for results. IMPRESSION: 1. Successful ultrasound-guided core biopsy right breast lesion 6:00 position. Recommendations: 1. Recommendations are pending pathology results. Pathology Results: High Risk RIGHT BREAST LESION, ULTRASOUND GUIDED CORE BIOPSIES: Intraductal papilloma, fibrocystic disease and usual type intraductal hyperplasia. Immunohistochemical studies for cytokeratin 5/6 support the above diagnosis with good performance of stains documented by control sections. Recommendation Surgical consult of the right breast. BEVERLEY
== END | disposition home or self-care (01) ==
LOC: RADUSWWP 07:30
PROVIDERS: ATTEND Surgery
DX: D24.1 Benign neoplasm of right breast (principal); N60.11 Diffuse cystic mastopathy of right breast; N60.91 Unspecified benign mammary dysplasia of right breast
CPT/HCPCS: 88305; 88342; 77065; 19083; A4648; J2001

== ENCOUNTER → 2018-01-04 | Outpatient (CLI) | payer MEDICARE, OTHER ==
[2018-01-04 16:07] VITALS: BP 133/63; PULSE 79; TEMP 96.8; BMI 31.8
--- NOTE | 2018-01-04 16:43 | P.GSHP ---
History of Present Illness H&P Date: 01/04/18 The patient is a 59-year-old black female who is status post ultrasound-guided core biopsy of the right breast. Pathology revealed an intraductal papilloma. Secondary to the intraductal papilloma we have recommended needle localization and excisional biopsy. This was related to the findings on her yearly mammogram. She did not note any masses or nodules in her breast. No pain in her breast. She has had no nipple discharge or skin changes. The patient is status post bilateral mammogram in November which was followed by an ultrasound of the right breast and findings of an intraductal papilloma. Past surgical history: 1. bilateral breast reduction 2. hysterectomy 3. bladder suspension 4. hammer toes on the left foot 5. cataract of the left eye past medical history: 1. chronic back pain 2. allergy testing to be done 3. TIA family history: 1. father: bone cancer 2. brother: cancer menarche: 12 : 3, 2 children, first life at 21, breast fed: no BCP: 3 hormones: 2 years not now - Constitutional Constitutional: Reports as per HPI - EENT Eyes: bilateral as per HPI (wears glasses) Ears: deny: tinnitus Ears, nose, mouth and throat: Denies headache, Denies sore throat - Breasts Breasts: bilateral: as per HPI - Cardiovascular Cardiovascular: Reports high blood pressure - Respiratory Respiratory: Reports as per HPI - Gastrointestinal Comment: constipation from pain meds Gastrointestinal: Denies abdominal pain, Denies diarrhea, Denies nausea, Denies vomiting - Genitourinary (Female) Genitourinary: Denies dysuria, Denies hematuria - Musculoskeletal Comment: back pain - Integumentary Integumentary: Denies pruritus, Denies rash - Neurological Neurological: Denies numbness, Denies weakness - Psychiatric Psychiatric: Denies anxiety, Denies depression - Endocrine Endocrine: Denies fatigue, Denies weight change - Hematologic/Lymphatic Comment: aspirin - Allergic/Immunologic Allergic/Immunologic: Reports seasonal allergies Past Medical History Past Medical History: CVA/TIA, Diabetes Mellitus, Hyperlipidemia, Hypertension, Musculoskeletal Disorder, Osteoarthritis (OA) Additional Past Medical History / Comment(s): BACK PAIN, TIA, Pneumonia November 2017 History of Any Multi-Drug Resistant Organisms: None Reported Past Surgical History: Bladder Surgery, Breast Surgery, Hysterectomy Additional Past Surgical History / Comment(s): neurostimulator lower lumbar 12/ 2013 current. hammer toe 10/22,. breast reduction 2004. BLADDER SUSPENSION 2004 Past Anesthesia/Blood Transfusion Reactions: No Reported Reaction Past Psychological History: No Psychological Hx Reported Smoking Status: Former smoker Past Alcohol Use History: None Reported Past Drug Use History: None Reported - Past Family History Mother Family Medical History: CVA/TIA, Diabetes Mellitus Father Additional Family Medical History / Comment(s): bone cancer Brother(s) Family Medical History: Diabetes Mellitus Additional Family Medical History / Comment(s): bone cancer Sister(s) Family Medical History: Diabetes Mellitus Medications and Allergies Home Medications Medication Instructions Recorded Confirmed Type Amitriptyline HCl [Elavil] 150 mg PO HS 01/11/15 01/04/18 History Morphine Sulfate ER [Ms Contin] 30 mg PO BID 01/11/15 01/04/18 History Baclofen [Lioresal] 10 mg PO TID PRN 11/12/17 01/04/18 History Diclofenac Sodium [Voltaren Gel] 2 gram TOPICAL DAILY 11/12/17 01/04/18 History Gabapentin [Neurontin] 300 mg PO TID 11/12/17 01/04/18 History HYDROcodone/APAP 7.5-325MG [[place] 1 tab PO BID PRN 11/12/17 01/04/18 History 7.5-325] Losartan/Hydrochlorothiazide 1 tab PO QAM 11/12/17 01/04/18 History [Losartan-Hctz 100-12.5 mg Tab] Potassium Chloride [Klor-Con 10 meq PO BID 11/12/17 01/04/18 History Sprinkle] Calcium Citrate/Vitamin D3 1 each PO QAM 12/12/17 01/04/18 History [Calcitrate + Vit D Caplet] Echinacea 760 mg PO QAM 12/12/17 01/04/18 History Etodolac [Lodine] 400 mg PO BID 12/12/17 01/04/18 History Fluticasone Nasal [place] [Flonase 1 spray EA NOSTRIL DAILY 12/12/17 01/04/18 History Nasal [place]] Multivitamins, Thera [Multivitamin 1 tab PO QAM 12/12/17 01/04/18 History (formulary)] Olopatadine HCl 1 applic BOTH EYES DAILY 12/12/17 01/04/18 History Allergies Allergy/AdvReac Type Severity Reaction Status Date / Time No Known Allergies Allergy Verified 12/26/17 10:29 Surgical - Exam Vital Signs Temp Pulse BP Pulse Ox 96.8 F L 79 133/63 94 L 01/04/18 16:05 01/04/18 16:05 01/04/18 16:05 01/04/18 16:05 - General well developed, well nourished, no distress - Eyes normal ocular movement, no icteric - ENT no hearing loss, no congestion - Neck no masses, trachea midline - Respiratory normal respiratory effort, clear to auscultation - Cardiovascular Rhythm: regular Heart Sounds: normal: S1, S2 - Abdomen Abdomen: soft, non tender, no guarding, no rigid, no rebound - Integumentary Right breast: No dominant masses or nodules of concern, puncture site with no evidence of hematoma or ecchymosis Right axilla: No adenopathy of concern Should be noted that the patient has had bilateral reduction mammoplasty and there are well-healed scars from this Left breast: No dominant masses or nodules of concern, well healed scars from reduction mammoplasty Left axilla: No adenopathy of concern - Neurologic no disoriented, no combative - Musculoskeletal normal gait, normal posture - Psychiatric oriented to time, oriented to person, oriented to place, speech is normal, memory intact Assessment and Plan Assessment: Impression/plan: 1. Mammographic abnormality noted in the right breast which led to an ultrasound which led to an ultrasound-guided core biopsy revealing intraductal papilloma 2. History of chronic back pain 3. Hypertension 4. High cholesterol Plan: 1. Medical management of medical problems 2. Needle localization and excisional biopsy of area of intraductal papilloma Risk and benefits of the procedure discussed with the patient and she wishes to proceed. CC: Dr. Peters
== END | disposition home or self-care (01) ==
LOC: WWCWWP 15:26
PROVIDERS: ATTEND Surgery
DX: D24.1 Benign neoplasm of right breast (principal); E11.9 Type 2 diabetes mellitus without complications; E78.00 Pure hypercholesterolemia, unspecified; G89.29 Other chronic pain; I10 Essential (primary) hypertension; M19.90 Unspecified osteoarthritis, unspecified site; Z86.73 Personal history of transient ischemic attack (TIA), and cerebral infarction without residual deficits; Z87.891 Personal history of nicotine dependence; Z90.710 Acquired absence of both cervix and uterus

== ENCOUNTER 2018-01-23 06:48 | Day surgery (SDC) | payer MEDICARE, OTHER ==
[2018-01-17 13:29] VITALS: BMI 32.2
[~2018-01-23 06:48] MED LIST: DEXAMETHASONE SOD PHOSPHATE 10 MG/ML 1 ML VIAL IV ONE; HEPARIN SODIUM,PORCINE 5,000 UNIT/ML 1 ML VIAL SQ ONE; LACTATED RINGERS 1,000 ML IV SCH; LIDOCAINE 1% 20 ML VIAL (10MG/ML) FOR IV START INTRADERMA PRN; MIDAZOLAM 2 MG/2 ML VIAL IV PRN; ONDANSETRON 4 MG/2 ML VIAL IVP ONE; Pre Op ABX Message 1 EACH MISC MISCELLANE ONE; fentaNYL (PF) 50 MCG/ML 2 ML AMP IV PRN
[2018-01-23] MEDS ORDERED: ALPRAZolam 0.25 MG TAB PO ONE (07:20)
[2018-01-23 07:49] LABS: Glucose,Whole Blood 101 mg/dL (75-99)
[2018-01-23] MEDS ORDERED: LIDOCAINE 1% INJ 10MG/ML (20 ML MDV) IV ONE (08:39)
[2018-01-23] MEDS ORDERED: SODIUM BICARB 4% 5 ML VIAL (0.48 MEQ/ML) MISCELLANE ONE (08:39)
[2018-01-23] MEDS ORDERED: HEPARIN SODIUM,PORCINE 5,000 UNIT/ML 1 ML VIAL SQ ONE (09:09)
[2018-01-23] MEDS ORDERED: PHENYLEPHRINE-0.9% NACL SYG 1 MG/10 ML SYRINGE ONE (09:26)
[2018-01-23] MEDS ORDERED: PROPOFOL 10 MG/ML 20 ML VIAL IV ONE (09:26)
[2018-01-23] MEDS ORDERED: MIDAZOLAM 2 MG/2 ML VIAL ONE (09:26)
[2018-01-23] MEDS ORDERED: SUCCINYLCHOLINE CHLORIDE 100 MG/5 ML SYR IV ONE (09:26)
[2018-01-23] MEDS ORDERED: LIDOCAINE 1% INJ 10MG/ML (20 ML MDV) ONE (09:26)
[2018-01-23] MEDS ORDERED: LACTATED RINGERS 1,000 ML IV ONE (09:50)
[2018-01-23] MEDS ORDERED: LIDOCAINE 1% (PF) 10MG/ML VIAL SQ ONE ×2 (09:50→10:12)
--- NOTE | 2018-01-23 10:16 | P.OP ---
Date of Procedure: 01/23/18 Preoperative Diagnosis: Intraductal papilloma on core biopsy right breast Postoperative Diagnosis: Same Procedure(s) Performed: Needle localization excisional biopsy right breast Anesthesia: ESAA Surgeon: Estee Marino Estimated Blood Loss (ml): 5 IV fluids (ml): 300 Pathology: other (Right breast tissue) Condition: stable Disposition: PACU Indications for Procedure: Intraductal papilloma core biopsy right breast Operative Findings: Scar tissue right breast Description of Procedure: Patient was taken to the operating room and following induction of anesthesia the right breast was prepped and draped in a sterile fashion. An incision was carried down to the needle localization needle. Wide excision around the needle was performed. The specimen was removed. We assured assured that hemostasis was attained using electrocautery as well as the Harmonic scalpel as specimen was removed. Titanium clips were placed. The wound was well irrigated. 3-0 Vicryl suture deep sutures were placed. The skin was closed using a 4-0 Monocryl. This was followed by a 4-0 nylon skin suture. All instrument and sponge counts were correct at the end of the case. Radiographic confirmation area of concern about removed was obtained. Patient tolerated procedure in stable condition.
--- NOTE | 2018-01-23 10:17 | P.DS ---
Providers Attending physician: Estee Marino Primary care physician: Tan Peters Plan - Discharge Summary New Discharge Prescriptions: No Action Morphine Sulfate ER [Ms Contin] 30 mg PO BID Amitriptyline HCl [Elavil] 150 mg PO HS Potassium Chloride [Klor-Con Sprinkle] 10 meq PO BID HYDROcodone/APAP 7.5-325MG [[place] 7.5-325] 1 tab PO BID PRN PRN Reason: Pain Losartan/Hydrochlorothiazide [Losartan-Hctz 100-12.5 mg Tab] 1 tab PO QAM Gabapentin [Neurontin] 300 mg PO BID Baclofen [Lioresal] 10 mg PO TID PRN PRN Reason: Pain Diclofenac Sodium [Voltaren Gel] 2 gram TOPICAL DAILY Multivitamins, Thera [Multivitamin (formulary)] 1 tab PO QAM Calcium Citrate/Vitamin D3 [Calcitrate + Vit D Caplet] 1 each PO QAM Fluticasone Nasal [place] [Flonase Nasal [place]] 1 spray EA NOSTRIL HS Olopatadine HCl 1 applic BOTH EYES BID Montelukast [Singulair] 10 mg PO HS Etodolac [Lodine] 400 mg PO BID PRN PRN Reason: Pain Gabapentin 600 mg PO HS Echinacea 760 mg PO DAILY Rosuvastatin Calcium [Crestor] 5 mg PO DAILY Discharge Medication List Amitriptyline HCl [Elavil] 150 mg PO HS 01/11/15 [History] Morphine Sulfate ER [Ms Contin] 30 mg PO BID 01/11/15 [History] Baclofen [Lioresal] 10 mg PO TID PRN 11/12/17 [History] Diclofenac Sodium [Voltaren Gel] 2 gram TOPICAL DAILY 11/12/17 [History] Gabapentin [Neurontin] 300 mg PO BID 11/12/17 [History] HYDROcodone/APAP 7.5-325MG [[place] 7.5-325] 1 tab PO BID PRN 11/12/17 [History] Losartan/Hydrochlorothiazide [Losartan-Hctz 100-12.5 mg Tab] 1 tab PO QAM [History] Potassium Chloride [Klor-Con Sprinkle] 10 meq PO BID 11/12/17 [History] Calcium Citrate/Vitamin D3 [Calcitrate + Vit D Caplet] 1 each PO QAM 12/12/17 [ History] Fluticasone Nasal [place] [Flonase Nasal [place]] 1 spray EA NOSTRIL HS 12/12/17 [ History] Multivitamins, Thera [Multivitamin (formulary)] 1 tab PO QAM 12/12/17 [History] Olopatadine HCl 1 applic BOTH EYES BID 12/12/17 [History] Montelukast [Singulair] 10 mg PO HS 01/05/18 [History] Echinacea 760 mg PO DAILY 01/17/18 [History] Etodolac [Lodine] 400 mg PO BID PRN 01/17/18 [History] Gabapentin 600 mg PO HS 01/17/18 [History] Rosuvastatin Calcium [Crestor] 5 mg PO DAILY 01/17/18 [History] Follow up Appointment(s)/Referral(s): Estee Marino MD [STAFF PHYSICIAN] - 1 Week Activity/Diet/Wound Care/Special Instructions: Do not drive today Wear bra at all times Patient may shower after 24 hours Discharge Disposition: HOME SELF-CARE
--- NOTE | 2018-01-23 10:26 | MM ---
EXAMINATION TYPE: MG pre op needle loc RT, MG surgical specimen RT DATE OF EXAM: 01/23/2018 COMPARISON: Prior mammogram December 18, 2017 and older studies. CLINICAL HISTORY: Ultrasound guided biopsy December 18, 2017 of intraductal papilloma TECHNIQUE: Needle localization with wire placement and surgical excision of area of concern in the right breast. FINDINGS: The procedure of needle localization with wire placement and than surgical excision was explained to the patient. Benefits, alternatives, and risks were discussed. An informed consent was then obtained. The shortest pathway for procedure was chosen. Shortest pathway was inferior approach. The overlying skin was prepped and draped in usual normal sterile fashion. Lidocaine buffered with bicarbonate was used as anesthetic into the skin and subcutaneous tissue up to the level of area of concern. A 5 cm needle was used. It was placed via a inferior approach under mammographic guidance. Subsequent 90 degrees mammogram show the needle to be in satisfactory position relative to the targeted area. At this point, wire was placed and the needle was withdrawn. The wire was fixed to patient's skin. Images were marked for surgeon. The patient tolerated the procedure well without any immediate complication. The patient was kept in the radiology department for short stay after the procedure and then taken to surgery for surgical excision. Targeted biopsy clip and wire are identified in specimen mammogram. The patient was kept in hospital for short stay after the procedure and then discharged home in stable condition. IMPRESSION: Successful, uncomplicated needle localization with wire placement and surgical excision of targeted biopsy clip in the right breast, full pathology results to follow. Pathology Results: Benign BREAST, RIGHT, NEEDLE LOCALIZATION, EXCISION: Proliferative fibrocystic changes including moderate to florid usual type ductal hyperplasia, cysts, fibrosis, apocrine metaplasia and rare microcalcifications. 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 No residual intraductal papilloma identified. Recommendation Follow up mammogram of the right breast in 6 months. BEVERLEY
[2018-01-23 10:28] VITALS: TEMP 97.5
[2018-01-23 10:36] LABS: Glucose,Whole Blood 123 mg/dL (75-99)
[2018-01-23 10:49] VITALS: RESP 16
[2018-01-23 11:26] VITALS: BP 137/77; PULSE 72
== END 2018-01-23 12:43 | disposition home or self-care (01) ==
LOC: OR 06:48
PROVIDERS: ATTEND Surgery
DX: N60.91 Unspecified benign mammary dysplasia of right breast (principal); N60.31 Fibrosclerosis of right breast; N60.81 Other benign mammary dysplasias of right breast; I10 Essential (primary) hypertension; E78.5 Hyperlipidemia, unspecified; E11.9 Type 2 diabetes mellitus without complications; M19.90 Unspecified osteoarthritis, unspecified site; J40 Bronchitis, not specified as acute or chronic; Z79.899 Other long term (current) drug therapy
CPT/HCPCS: 88307; 76098; 19281; 19301; J2250; J1644; J1100; J2405; J2001 ×2; J3010; J2370; J0330; J2704

== ENCOUNTER → 2018-02-01 | Outpatient (CLI) | payer MEDICARE, OTHER ==
[2018-02-01 11:01] VITALS: BP 128/71; PULSE 91; BMI 32.2
--- NOTE | 2018-02-01 11:10 | P.PN ---
Progress Note - Text Progress Note Date: 02/01/18 Patient has status post right breast biopsy secondary to intraductal papilloma noted on core biopsy. Pathology is benign, fibrocystic changes and PASH the patient has no complaints related to her surgery. Physical exam: Incision clean and dry Impression/plan: I have discussed with the patient the results of her pathology. She will have a repeat right breast mammogram and physician exam in 6 months time. Cc: Dr. Peters
== END ==
LOC: WWCWWP 10:15
PROVIDERS: ATTEND Surgery
DX: Z53.9 Procedure and treatment not carried out, unspecified reason (principal)

== ENCOUNTER → 2018-07-16 | Outpatient (CLI) | payer MEDICARE ==
--- NOTE | 2018-07-17 17:14 | MM ---
Reason for exam: follow-up at short interval from prior study. Last mammogram was performed 7 months ago. History: Patient is postmenopausal and has history of high-risk lesion on a previous biopsy at age 67. Benign MG pre op needle loc RT of the right breast, January 23, 2018. High risk US biopsy breast VAD RT of the right breast, December 18, 2017. Benign MG stereo VAD BX LT of the left breast, December 15, 2015. Benign US breast aspiration single LT of the left breast, December 15, 2015. Benign US biopsy breast VAD LT of the left breast, December 15, 2015. Benign US biopsy breast add'l VAD LT of the left breast, December 15, 2015. Reductions of both breasts, January 2005. Took hormonal contraceptives for 8 years beginning at age 16. Took estrogen for 3 years beginning at age 40. Indicated problem(s): palpable abnormality and lump or thickening in the right breast. Physical Findings: Nurse did not find any significant physical abnormalities on exam. MG 3D Diag Mammo W/Cad RT CC and MLO view(s) were taken of the right breast. Prior study comparison: December 18, 2017, right breast MG diagnostic mammo RT wo CAD. November 23, 2017, bilateral MG 3d screening mammo w/cad. The breast tissue is heterogeneously dense. This may lower the sensitivity of mammography. There is a distortion in the right breast consistent with excisional biopsy. Right breast chronic nodularity. These results were verbally communicated with the patient and result sheet given to the patient on 07/16/18. ASSESSMENT: Benign, BI-RAD 2 RECOMMENDATION: Follow-up diagnostic mammogram of both breasts in 6 months.
== END | disposition home or self-care (01) ==
LOC: RADMAMWWP 07:19
PROVIDERS: ATTEND Surgery
DX: N63.10 Unspecified lump in the right breast, unspecified quadrant (principal)
CPT/HCPCS: 77065; G0279; 77061

== ENCOUNTER → 2018-07-19 | Outpatient (CLI) | payer MEDICARE ==
[2018-07-19 09:22] VITALS: BP 134/84; PULSE 79; RESP 18; TEMP 98.1; BMI 30.9
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
== END | disposition home or self-care (01) ==
LOC: WWCWWP 08:55
PROVIDERS: ATTEND Surgery
DX: Z53.9 Procedure and treatment not carried out, unspecified reason (principal)

== ENCOUNTER → 2018-12-17 | Outpatient (CLI) | payer MEDICARE ==
--- NOTE | 2018-12-18 08:28 | MM ---
Reason for exam: additional evaluation requested from prior study. Last mammogram was performed 5 months ago. History: Patient is postmenopausal and has history of high-risk lesion on a previous biopsy at age 67. Benign MG pre op needle loc RT of the right breast, January 23, 2018. High risk US biopsy breast VAD RT of the right breast, December 18, 2017. Benign MG stereo VAD BX LT of the left breast, December 15, 2015. Benign US breast aspiration single LT of the left breast, December 15, 2015. Benign US biopsy breast VAD LT of the left breast, December 15, 2015. Benign US biopsy breast add'l VAD LT of the left breast, December 15, 2015. Reductions of both breasts, January 2005. Took hormonal contraceptives for 8 years beginning at age 16. Took estrogen for 3 years beginning at age 40. Physical Findings: Nurse did not find any significant physical abnormalities on exam. MG 3D Diag Mammo W/Cad SIRENA Bilateral CC and MLO view(s) were taken. Prior study comparison: July 16, 2018, right breast MG 3d diag mammo w/cad RT. December 18, 2017, right breast MG diagnostic mammo RT wo CAD. November 23, 2017, bilateral MG 3d screening mammo w/cad. August 10, 2016, bilateral MG 3d diag mammo w/cad SIRENA. December 01, 2015, left breast MG 3d diag mammo w/cad LT. The breast tissue is heterogeneously dense. This may lower the sensitivity of mammography. There is a 9mm upper inner quadrant posterior depth new mass. Benign appearing calcifications in the left breast. No suspicious abnormality on the right. Left biopsy markers. These results were verbally communicated with the patient and result sheet given to the patient on 12/17/18. ASSESSMENT: Incomplete: need additional imaging evaluation, BI-RAD 0 RECOMMENDATION: Ultrasound of the left breast. upper inner quadrant
--- NOTE | 2018-12-18 08:30 | USB ---
Reason for exam: additional evaluation requested from abnormal screening. History: Patient is postmenopausal and has history of high-risk lesion on a previous biopsy at age 67. Benign MG pre op needle loc RT of the right breast, January 23, 2018. High risk US biopsy breast VAD RT of the right breast, December 18, 2017. Benign MG stereo VAD BX LT of the left breast, December 15, 2015. Benign US breast aspiration single LT of the left breast, December 15, 2015. Benign US biopsy breast VAD LT of the left breast, December 15, 2015. Benign US biopsy breast add'l VAD LT of the left breast, December 15, 2015. Reductions of both breasts, January 2005. Took hormonal contraceptives for 8 years beginning at age 16. Took estrogen for 3 years beginning at age 40. US Breast Limited LT Left limited breast ultrasound including focal area of concern, retroareolar and axilla demonstrates a 9 x 7 x 7mm cystic lesion at 9 o'clock, benign, does not correlate with mammographic finding. 6 month follow up mammogram regarding focal asymmetry as this appears present on prior MLO but not CC views. These results were verbally communicated with the patient and result sheet given to the patient on 12/17/18. ASSESSMENT: Probably benign, BI-RAD 3 RECOMMENDATION: Follow-up diagnostic mammogram of the left breast in 6 months.
== END | disposition home or self-care (01) ==
LOC: RADMAMWWP 12:54
PROVIDERS: ATTEND Surgery
DX: R92.8 Other abnormal and inconclusive findings on diagnostic imaging of breast (principal)
CPT/HCPCS: 77066; 76642; G0279; 77062

== ENCOUNTER → 2018-12-17 | Outpatient (CLI) | payer MEDICARE ==
--- NOTE | 2018-12-17 15:16 | US ---
EXAMINATION TYPE: US venous doppler duplex LE DATE OF EXAM: 12/17/2018 2:54 PM COMPARISON: NONE CLINICAL HISTORY: R60.0 LOCALIZED EDEMA. SIDE PERFORMED: Bilateral TECHNIQUE: The lower extremity deep venous system is examined utilizing real time linear array sonog peter with graded compression, doppler sonography and color-flow sonography. VESSELS IMAGED: External Iliac Vein (EIV) Common Femoral Vein Deep Femoral Vein Greater Saphenous Vein * Femoral Vein Popliteal Vein Small Saphenous Vein * Proximal Calf Veins (* superficial vessels) Grayscale, color doppler, spectral doppler imaging performed of the deep veins of the lower extremiti es. There is normal flow, compressibility, vascular waveforms. Right Leg: Negative for DVT Left Leg: Negative for DVT IMPRESSION: No sonographic evidence of deep venous thrombosis within either lower extremity.
== END | disposition home or self-care (01) ==
LOC: RADUSWWP 12:57
PROVIDERS: ATTEND Family Medicine
DX: R60.0 Localized edema (principal)
CPT/HCPCS: 93970

== ENCOUNTER → 2018-12-27 | Outpatient (CLI) | payer MEDICARE ==
[2018-12-27 12:43] VITALS: BP 145/75; PULSE 84; RESP 18; TEMP 98.5; BMI 30.9
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
== END | disposition home or self-care (01) ==
LOC: WWCWWP 12:32
PROVIDERS: ATTEND Surgery
DX: Z53.9 Procedure and treatment not carried out, unspecified reason (principal)

== ENCOUNTER → 2019-07-29 | Outpatient (CLI) | payer MEDICARE ==
--- NOTE | 2019-07-30 10:32 | MM ---
Reason for exam: follow-up at short interval from prior study. Last mammogram was performed 7 months ago. History: Patient is postmenopausal and has history of high-risk lesion on a previous biopsy at age 67. Benign MG pre op needle loc RT of the right breast, January 23, 2018. High risk US biopsy breast VAD RT of the right breast, December 18, 2017. Benign MG stereo VAD BX LT of the left breast, December 15, 2015. Benign US breast aspiration single LT of the left breast, December 15, 2015. Benign US biopsy breast VAD LT of the left breast, December 15, 2015. Benign US biopsy breast add'l VAD LT of the left breast, December 15, 2015. Reductions of both breasts, January 2005. Took hormonal contraceptives for 8 years beginning at age 16. Took estrogen for 3 years beginning at age 40. Physical Findings: Nurse did not find any significant physical abnormalities on exam. MG 3D Diag Mammo W/Cad LT CC, MLO, and XCCL view(s) were taken of the left breast. Prior study comparison: December 17, 2018, bilateral MG 3d diag mammo w/cad SIRENA. July 16, 2018, right breast MG 3d diag mammo w/cad RT. The breast tissue is heterogeneously dense. This may lower the sensitivity of mammography. Previous mammotome biopsy in the left breast. There is chronic nodularity in the left breast. No significant new findings when compared with previous films. These results were verbally communicated with the patient and result sheet given to the patient on 07/29/19. ASSESSMENT: Incomplete: need additional imaging evaluation, BI-RAD 0 RECOMMENDATION: Ultrasound of the left breast.
--- NOTE | 2019-07-30 10:37 | USB ---
Reason for exam: additional evaluation requested from abnormal screening. History: Patient is postmenopausal and has history of high-risk lesion on a previous biopsy at age 67. Benign MG pre op needle loc RT of the right breast, January 23, 2018. High risk US biopsy breast VAD RT of the right breast, December 18, 2017. Benign MG stereo VAD BX LT of the left breast, December 15, 2015. Benign US breast aspiration single LT of the left breast, December 15, 2015. Benign US biopsy breast VAD LT of the left breast, December 15, 2015. Benign US biopsy breast add'l VAD LT of the left breast, December 15, 2015. Reductions of both breasts, January 2005. Took hormonal contraceptives for 8 years beginning at age 16. Took estrogen for 3 years beginning at age 40. US Breast LT Left complete breast ultrasound includes all four quadrants, the retroareolar region and axilla. Finding demonstrates a 8 x 4 x 8mm oval, cystic lesion at 2 o'clock, a 22 x 5 x 20mm lobular, hypoechoic lesion at 4 o'clock, FNA +/- biopsy advised, a 9 x 8 x 7mm lobular, cystic lesion at 7 o'clock, simple cyst, a 10 x 6 x 7mm oval, cystic lesion at 9 o'clock, simple cyst and a 4mm oval axilla lymph node. These results were verbally communicated with the patient and result sheet given to the patient on 07/29/19. ASSESSMENT: Suspicious, BI-RAD 4 RECOMMENDATION: Ultrasound core biopsy of the left breast. (+/- FNA) Called office with mammographic findings and has scheduled an appointment for the patient for 08/08/19 at 2:[address] Marino. Biopsy scheduled for 08/14/19. PRELIMINARY REPORT CALLED AND FAXED TO DR. MARINO ON 07/30/19.
== END | disposition home or self-care (01) ==
LOC: RADMAMWWP 13:17
PROVIDERS: ATTEND Surgery
DX: R92.8 Other abnormal and inconclusive findings on diagnostic imaging of breast (principal)
CPT/HCPCS: 77065; 76641; G0279; 77061

== ENCOUNTER → 2019-08-08 | Outpatient (CLI) | payer MEDICARE ==
[2019-08-08 14:37] VITALS: BP 146/84; PULSE 106; RESP 18; TEMP 97.7
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
== END | disposition home or self-care (01) ==
LOC: WWCWWP 14:21
PROVIDERS: ATTEND Surgery
DX: Z53.9 Procedure and treatment not carried out, unspecified reason (principal)

== ENCOUNTER → 2019-11-12 | Outpatient (CLI) | payer MEDICARE, OTHER ==
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
[2019-11-12 10:41] VITALS: BP 172/104; PULSE 77; RESP 20; TEMP 98.3
== END | disposition home or self-care (01) ==
LOC: WWCWWP 08:49
PROVIDERS: ATTEND Surgery
DX: Z53.9 Procedure and treatment not carried out, unspecified reason (principal)

== ENCOUNTER → 2019-11-19 | Day surgery (SDC) | payer MEDICARE ==
[2019-11-18 12:37] VITALS: BMI 32.2
[~2019-11-19] MED LIST changes: +ALPRAZolam 0.25 MG TAB PO ONE; -DEXAMETHASONE SOD PHOSPHATE 10 MG/ML 1 ML VIAL IV ONE; +HYDROcodone/APAP 7.5-325MG 1 EACH TAB PO ONE; +HYDROmorphone (PF) 1 MG/ML ONE; +HYDROmorphone 0.5 MG/0.5 ML SYRINGE IVP PRN; +LACTATED RINGERS 1,000 ML IV ONE; +LIDOCAINE 1% (10MG/ML) FOR IV START INTRADERMA PRN; -LIDOCAINE 1% 20 ML VIAL (10MG/ML) FOR IV START INTRADERMA PRN; +LIDOCAINE 1% INJ 10MG/ML (20 ML MDV) ONE; +LIDOCAINE 1% INJ 10MG/ML (20 ML MDV) SQ ONE; -MIDAZOLAM 2 MG/2 ML VIAL IV PRN; +MIDAZOLAM 2 MG/2 ML VIAL ONE; +PHENYLEPHRINE-0.9% NACL SYG 1 MG/10 ML SYRINGE ONE; +PROPOFOL 10 MG/ML 20 ML VIAL IV ONE; +SUCCINYLCHOLINE CHLORIDE 100 MG/5 ML SYR IV ONE; -fentaNYL (PF) 50 MCG/ML 2 ML AMP IV PRN; +fentaNYL (PF) 50 MCG/ML 2 ML AMP ONE
[2019-11-19 13:46] LABS: Glucose,Whole Blood 102 mg/dL (75-99)
--- NOTE | 2019-11-19 17:55 | P.OP ---
Date of Procedure: 11/19/19 Preoperative Diagnosis: needle localization Left breast lumpectomy for papilloma Postoperative Diagnosis: same Anesthesia: GETA Surgeon: Estee Marino Estimated Blood Loss (ml): 5 Pathology: other (breast tissue) Condition: stable Disposition: same day Indications for Procedure: Core Biopsy intraductal papilloma Description of Procedure: Rebecca is status post a core biopsy of her left breast which revealed a papilloma. After discussion she opted for needle localization and excisional lumpectomy of the area of concern. This was ocalized by radiology. The patient was brought to the operating room. Following induction of general anesthesia the left breast was prepped and draped in a sterile fashion. An incision was made and carried down to the hook of the needle. Surrounding tissue was excised. This was done using the Harmonic scalpel as well as electrocautery device. After this was excised the specimen was painted for orientation. Radiograph revealed the area of concern was removed. The wound was irrigated. Titanium clips were placed. Deep tissues were closed using 3-0 Vicryl suture. The skin was closed using 4-0 Monocryl. Steri-Strips were applied. Patient tolerated procedure in stable condition. Specimen was sent to pathology. The patient will follow-up Dr. Mark next week.
--- NOTE | 2019-11-19 17:57 | P.DS ---
Providers Attending physician: Estee Marino Primary care physician: Tan Peters Plan - Discharge Summary Discharge Rx Participant: No New Discharge Prescriptions: No Action Amitriptyline HCl [Elavil] 150 mg PO HS Potassium Chloride [Klor-Con Sprinkle] 10 meq PO BID HYDROcodone/APAP 7.5-325MG [[place] 7.5-325] 1 tab PO BID PRN PRN Reason: Pain Losartan/Hydrochlorothiazide [Losartan-Hctz 100-12.5 mg Tab] 1 tab PO QAM Gabapentin [Neurontin] 200 mg PO TID Baclofen [Lioresal] 10 mg PO TID PRN PRN Reason: Pain Diclofenac Sodium [Voltaren Gel] 2 gram TOPICAL DAILY Multivitamins, Thera [Multivitamin (formulary)] 1 tab PO QAM Calcium Citrate/Vitamin D3 [Calcitrate + Vit D Caplet] 1 each PO QAM Fluticasone Nasal [place] [Flonase Nasal [place]] 1 spray EA NOSTRIL HS Montelukast [Singulair] 10 mg PO HS Etodolac [Lodine] 400 mg PO BID PRN PRN Reason: Pain Rosuvastatin Calcium [Crestor] 5 mg PO DAILY metFORMIN HCL [Glucophage] 500 mg PO DAILY Pain Pump Discharge Medication List Amitriptyline HCl [Elavil] 150 mg PO HS 01/11/15 [History] Baclofen [Lioresal] 10 mg PO TID PRN 11/12/17 [History] Diclofenac Sodium [Voltaren Gel] 2 gram TOPICAL DAILY 11/12/17 [History] Gabapentin [Neurontin] 200 mg PO TID 11/12/17 [History] HYDROcodone/APAP 7.5-325MG [[place] 7.5-325] 1 tab PO BID PRN 11/12/17 [History] Losartan/Hydrochlorothiazide [Losartan-Hctz 100-12.5 mg Tab] 1 tab PO QAM 11/12/17 [History] Potassium Chloride [Klor-Con Sprinkle] 10 meq PO BID 11/12/17 [History] Calcium Citrate/Vitamin D3 [Calcitrate + Vit D Caplet] 1 each PO QAM 12/12/17 [History] Fluticasone Nasal [place] [Flonase Nasal [place]] 1 spray EA NOSTRIL HS 12/12/17 [History] Multivitamins, Thera [Multivitamin (formulary)] 1 tab PO QAM 12/12/17 [History] Montelukast [Singulair] 10 mg PO HS 01/05/18 [History] Etodolac [Lodine] 400 mg PO BID PRN 01/17/18 [History] Rosuvastatin Calcium [Crestor] 5 mg PO DAILY 01/17/18 [History] Pain Pump 11/18/19 [History] metFORMIN HCL [Glucophage] 500 mg PO DAILY 11/18/19 [History] Follow up Appointment(s)/Referral(s): Estee Marino MD [STAFF PHYSICIAN] - 1 Week Activity/Diet/Wound Care/Special Instructions: do not drive for 24 hours from discharge wear bra at all times unless showering may shower after [address] if taking narcotic pain medicine
[2019-11-19 18:06] LABS: Glucose,Whole Blood 72 mg/dL (75-99)
[2019-11-19 18:08] VITALS: TEMP 97.6
[2019-11-19 19:04] VITALS: BP 161/77; PULSE 82; RESP 18
--- NOTE | 2019-11-20 16:22 | MM ---
EXAMINATION TYPE: MG pre op needle loc LT, MG surgical specimen LT DATE OF EXAM: 11/19/2019 COMPARISON: Prior mammogram and ultrasound August 14, 2019. CLINICAL HISTORY: Left-sided breast cancer. TECHNIQUE: Needle localization with wire placement and surgical excision of area of concern in the left breast. FINDINGS: The procedure of needle localization with wire placement and than surgical excision was explained to the patient. Benefits, alternatives, and risks were discussed. An informed consent was then obtained. The shortest pathway for procedure was chosen. Shortest pathway was lateral approach. The overlying skin was prepped and draped in usual sterile fashion. Lidocaine buffered with bicarbonate was used as anesthetic into the skin and subcutaneous tissue up to the level of area of concern. A 7 cm needle was used. It was placed via a lateral approach under mammographic guidance. Subsequent 90 degrees mammogram show the needle to be in satisfactory position relative to the targeted area. At this point, wire was placed and the needle was withdrawn. The wire was fixed to patient's skin. Images were marked for surgeon. The patient tolerated the procedure well without any immediate complication. The patient was kept in the radiology department for short stay after the procedure and then taken to surgery for surgical excision. Targeted biopsy clip and wire are identified in specimen mammogram. The patient was kept in hospital for short stay after the procedure and then discharged home in stable condition. IMPRESSION: Successful, uncomplicated needle localization with wire placement and surgical excision of targeted biopsy clip in the left breast, full pathology results to follow. Pathology Results: High Risk LEFT BREAST, NEEDLE LOCALIZATION EXCISION: Proliferative fibrocystic changes including fibrosis, cysts, apocrine metaplasia, sclerosing adenosis with microcalcifications, and usual type ductal hyperplasia with papillomatosis. Pseudoangiomatous stromal hyperplasia (PASH) and features consistent with previous biopsy site. Negative for malignancy. Recommendation Follow up mammogram of the left breast in 6 months. MTDD
== END ==
LOC: OR 12:32
PROVIDERS: ATTEND Surgery
DX: N60.12 Diffuse cystic mastopathy of left breast (principal); R92.0 Mammographic microcalcification found on diagnostic imaging of breast; N64.89 Other specified disorders of breast; N60.11 Diffuse cystic mastopathy of right breast; M47.899 Other spondylosis, site unspecified; E11.9 Type 2 diabetes mellitus without complications; K59.00 Constipation, unspecified; J30.2 Other seasonal allergic rhinitis; E78.2 Mixed hyperlipidemia; I10 Essential (primary) hypertension; N64.81 Ptosis of breast; K08.409 Partial loss of teeth, unspecified cause, unspecified class; Z96.82 Presence of neurostimulator; Z97.8 Presence of other specified devices; Z98.890 Other specified postprocedural states; Z78.0 Asymptomatic menopausal state; Z90.710 Acquired absence of both cervix and uterus; Z90.722 Acquired absence of ovaries, bilateral; Z98.49 Cataract extraction status, unspecified eye; Z87.891 Personal history of nicotine dependence; Z86.73 Personal history of transient ischemic attack (TIA), and cerebral infarction without residual deficits; Z87.01 Personal history of pneumonia (recurrent); Z87.39 Personal history of other diseases of the musculoskeletal system and connective tissue; Z79.899 Other long term (current) drug therapy; Z79.1 Long term (current) use of non-steroidal anti-inflammatories (NSAID); Z79.52 Long term (current) use of systemic steroids; Z79.891 Long term (current) use of opiate analgesic; Z79.82 Long term (current) use of aspirin; Z79.84 Long term (current) use of oral hypoglycemic drugs; Z91.09 Other allergy status, other than to drugs and biological substances; Z87.09 Personal history of other diseases of the respiratory system; Z80.8 Family history of malignant neoplasm of other organs or systems; Z82.3 Family history of stroke; Z83.3 Family history of diabetes mellitus; Z82.49 Family history of ischemic heart disease and other diseases of the circulatory system
CPT/HCPCS: 19301; 88307; 76098; 19281; J2250; J1644; J2405; J2001; J3010; J1170 ×2; J2370; J0330; J2704

== ENCOUNTER → 2019-11-28 | Outpatient (CLI) | payer MEDICARE ==
--- NOTE | 2019-11-28 16:23 | P.PN ---
Progress Note - Text Progress Note Date: 11/28/19 Jj is a 69-year-old female status [place] [id number]. Pathology is benign. Patient has no complaints at this time. Examination: Lungs: Clear Heart: Regular rate and rhythm Incision: left breast clean and dry no evidence of infection Impression: 1. Patient status post left breast needle local excisional biopsy pathology benign Plan: 1. Repeat left breast mammogram 6 months with physician exam at that time CC: Dr. Peters
[2019-11-28 16:37] VITALS: BP 156/83; PULSE 78; RESP 16; TEMP 98
== END | disposition home or self-care (01) ==
LOC: WWCWWP 14:49
PROVIDERS: ATTEND Surgery
DX: Z53.9 Procedure and treatment not carried out, unspecified reason (principal)

== ENCOUNTER → 2020-05-25 | Outpatient (CLI) | payer MEDICARE ==
--- NOTE | 2020-05-25 09:41 | MM ---
Reason for exam: follow-up at short interval from prior study. Last mammogram was performed 9 months ago. History: Patient is postmenopausal and has history of high-risk lesion on a previous biopsy at age 69. High risk MG pre op needle loc LT of the left breast, November 19, 2019. High risk US biopsy breast VAD LT of the left breast, August 14, 2019. Benign MG pre op needle loc RT of the right breast, January 23, 2018. High risk US biopsy breast VAD RT of the right breast, December 18, 2017. Benign MG stereo VAD BX LT of the left breast, December 15, 2015. Benign US breast aspiration single LT of the left breast, December 15, 2015. Benign US biopsy breast VAD LT of the left breast, December 15, 2015. Benign US biopsy breast add'l VAD LT of the left breast, December 15, 2015. Reductions of both breasts, January 2005. Took hormonal contraceptives for 8 years beginning at age 16. Took estrogen for 3 years beginning at age 40. Physical Findings: Nurse did not find any significant physical abnormalities on exam. MG 3D Diag Mammo W/Cad LT CC and MLO view(s) were taken of the left breast. Prior study comparison: August 14, 2019, left breast MG diagnostic mammo LT wo CAD. July 29, 2019, left breast MG 3d diag mammo w/cad LT. The breast tissue is heterogeneously dense. This may lower the sensitivity of mammography. Finding #1: Architectural distortion in the upper outer quadrant of the left breast. Finding #2: There are typically benign calcifications in the left breast. Previous mammotome biopsy in the left breast. There is a chronic nodularity in the left breast. These results were verbally communicated with the patient and result sheet given to the patient on 05/25/20. ASSESSMENT: Benign, BI-RAD 2 RECOMMENDATION: Follow-up diagnostic mammogram of both breasts.
--- NOTE | 2020-05-25 10:08 | MM ---
Reason for exam: follow-up at short interval from prior study. Last mammogram was performed 9 months ago. History: Patient is postmenopausal and has history of high-risk lesion on a previous biopsy at age 69. High risk MG pre op needle loc LT of the left breast, November 19, 2019. High risk US biopsy breast VAD LT of the left breast, August 14, 2019. Benign MG pre op needle loc RT of the right breast, January 23, 2018. High risk US biopsy breast VAD RT of the right breast, December 18, 2017. Benign MG stereo VAD BX LT of the left breast, December 15, 2015. Benign US breast aspiration single LT of the left breast, December 15, 2015. Benign US biopsy breast VAD LT of the left breast, December 15, 2015. Benign US biopsy breast add'l VAD LT of the left breast, December 15, 2015. Reductions of both breasts, January 2005. Took hormonal contraceptives for 8 years beginning at age 16. Took estrogen for 3 years beginning at age 40. Physical Findings: Nurse did not find any significant physical abnormalities on exam. MG 3D Diag Mammo W/Cad SIRENA Bilateral CC and MLO view(s) were taken. Prior study comparison: August 14, 2019, left breast MG diagnostic mammo LT wo CAD. July 29, 2019, left breast MG 3d diag mammo w/cad LT. The breast tissue is heterogeneously dense. This may lower the sensitivity of mammography. Finding #1: Architectural distortion. Finding #2: There are typically benign calcifications in the right breast. These results were verbally communicated with the patient and result sheet given to the patient on 05/25/20. ASSESSMENT: Benign, BI-RAD 2 RECOMMENDATION: Follow-up diagnostic mammogram of both breasts in 1 year.
== END | disposition home or self-care (01) ==
LOC: RADMAMWWP 08:25
PROVIDERS: ATTEND Surgery
DX: R92.8 Other abnormal and inconclusive findings on diagnostic imaging of breast (principal)
CPT/HCPCS: 77066; G0279; 77061; 77062; 77065

== ENCOUNTER → 2020-05-28 | Outpatient (CLI) | payer MEDICARE, OTHER ==
[2020-05-28 10:01] VITALS: BP 137/85; PULSE 83; RESP 16; TEMP 98.5
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
== END | disposition home or self-care (01) ==
LOC: WWCWWP 09:38
PROVIDERS: ATTEND Surgery
DX: Z53.9 Procedure and treatment not carried out, unspecified reason (principal)

== ENCOUNTER 2020-11-04 14:14 | Inpatient (IN) | payer MEDICARE, OTHER ==
[2020-11-04] MEDS ORDERED: SODIUM CHLORIDE 0.9% 500 ML 500 ML IV ONE (14:31)
--- NOTE | 2020-11-04 14:59 | ED ---
General Adult HPI - General Chief complaint: Altered Mental Status Stated complaint: AMS Time Seen by Provider: 11/04/20 14:18 Source: patient, EMS, RN notes reviewed, old records reviewed Mode of arrival: ambulatory Limitations: altered mental status - History of Present Illness Initial comments: 70-year-old female presenting for evaluation of confusion, altered mental status. 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 Approximately 12 hours prior to arrival. She had been talking with her daughter on face time who noticed that her mother was somewhat confused. There is been no reported vomiting, diarrhea, no fever reported. Patient does have history of previous CVA. Uncertain if she has been eating and drinking well. She does live alone. History is limited from the patient, denying any pain complaints. Alert and oriented 2. - Related Data Home Medications Medication Instructions Recorded Confirmed Amitriptyline HCl [Elavil] 150 mg PO HS 01/11/15 11/04/20 Baclofen [Lioresal] 10 mg PO TID PRN 11/12/17 11/04/20 Diclofenac Sodium [Voltaren Gel] 2 gram TOPICAL BID 11/12/17 11/04/20 Losartan/Hydrochlorothiazide 1 tab PO DAILY 11/12/17 11/04/20 [Losartan-Hctz 100-12.5 mg Tab] Fluticasone Nasal Minter [Flonase 2 spray EA NOSTRIL HS 12/12/17 11/04/20 Nasal Minter] Multivitamins, Thera [Multivitamin 1 tab PO DAILY 12/12/17 11/04/20 (formulary)] Etodolac [Lodine] 400 mg PO BID PRN 01/17/18 11/04/20 Rosuvastatin Calcium [Crestor] 5 mg PO HS 01/17/18 11/04/20 metFORMIN HCL [Glucophage] 500 mg PO DAILY 11/18/19 11/04/20 Albuterol Nebulized [Ventolin 2.5 mg INHALATION RT-QID PRN 11/04/20 11/04/20 Nebulized] Aspirin EC [Ecotrin Low Dose] 81 mg PO DAILY 11/04/20 11/04/20 Calcium Carbonate [Calcium] 600 mg PO BID 11/04/20 11/04/20 Gabapentin [Neurontin] 100 mg PO DAILY@1300 11/04/20 11/04/20 Gabapentin [Neurontin] 200 mg PO BID 11/04/20 11/04/20 Hydrochlorothiazide 12.5 mg PO DAILY 11/04/20 11/04/20 [hydroCHLOROthiazide] Metoprolol Succinate (ER) [Toprol 25 mg PO DAILY 11/04/20 11/04/20 Xl] Morphine Pain Pump 1 dose INTRATHECA DIRECTED 11/04/20 11/04/20 Potassium Chloride ER [K-Dur 10] 20 meq PO BID 11/04/20 11/04/20 Allergies Allergy/AdvReac Type Severity Reaction Status Date / Time dog dander Allergy ALLERGY Verified 11/04/20 14:24 SYMPTOMS mold Allergy ALLERGY Verified 11/04/20 14:24 SYMPTOMS dust mites Allergy ALLERGY Uncoded 05/28/20 09:49 SYMPTOMS Review of Systems ROS Statement: Those systems with pertinent positive or pertinent negative responses have been documented in the HPI. ROS Other: All systems not noted in ROS Statement are negative. Past Medical History Past Medical History: CVA/TIA, Diabetes Mellitus, Hyperlipidemia, Hypertension, Musculoskeletal Disorder, Osteoarthritis (OA) Additional Past Medical History / Comment(s): BACK PAIN; TIA, Pneumonia November 2017; History of Any Multi-Drug Resistant Organisms: None Reported Past Surgical History: Bladder Surgery, Breast Surgery, Hysterectomy, Orthopedic Surgery Additional Past Surgical History / Comment(s): neurostimulator lower lumbar 06/2013 current. hammer toe 10/22,. breast reduction 2004. BLADDER SUSPENSION 2004, Morphine pain pump -2018. LT BREAST BX, BILAT CATARACT SX Past Anesthesia/Blood Transfusion Reactions: No Reported Reaction Past Psychological History: No Psychological Hx Reported Smoking Status: Former smoker Past Alcohol Use History: None Reported Past Drug Use History: None Reported - Past Family History Mother Family Medical History: CVA/TIA, Diabetes Mellitus Father Additional Family Medical History / Comment(s): bone cancer Brother(s) Family Medical History: Diabetes Mellitus Additional Family Medical History / Comment(s): bone cancer Sister(s) Family Medical History: Diabetes Mellitus General Exam Limitations: altered mental status General appearance: alert, in no apparent distress Head exam: Present: atraumatic, normocephalic Eye exam: Present: normal appearance, PERRL ENT exam: Present: mucous membranes dry Neck exam: Present: normal inspection. Absent: tenderness, meningismus Respiratory exam: Present: normal lung sounds bilaterally. Absent: respiratory distress Cardiovascular Exam: Present: normal rhythm, tachycardia GI/Abdominal exam: Present: soft. Absent: distended, tenderness, guarding, rebound Extremities exam: Present: normal inspection, normal capillary refill Neurological exam: Present: alert, CN II-XII intact. Absent: oriented X3, motor sensory deficit Psychiatric exam: Present: normal affect, normal mood Skin exam: Present: warm, dry, intact. Absent: cyanosis, diaphoretic Course Vital Signs 11/04/20 11/04/20 14:24 16:23 Temperature 98 F Pulse Rate 117 H 109 H Respiratory 18 16 Rate Blood Pressure 189/93 167/90 O2 Sat by Pulse 94 L 94 L Oximetry - Reevaluation(s) Reevaluation #1: 11/04/20 17:15 Patient does have a pain pump, will attempt to find out where this was placed. EKG Findings - EKG Comments: EKG Findings:: EKG: Sinus tachycardia, rate of 113, TN interval 168, QRS duration 84 QTC 433, no ST segment elevation. Medical Decision Making - Medical Decision Making 70-year-old female with confusion and altered mental status. Patient is able to answer basic questions but is not appropriately alert and oriented. She has a nonfocal neurologic exam, stable vitals here she is in sinus rhythm. Head CT negative for intracranial hemorrhage or mass effect. Chest x-ray negative for focal pneumonia. She has a mild elevation in BUN and creatinine. Additionally she has mildly elevated AST and ALT with no abdominal pain or history of vomiting. Urinalysis showing 2+ ketones. Symptoms may be related to de hydration versus the pain pump that the patient has. Uncertain where this was placed or what medication is in this pain pump that the patient is positive for opiates on urine drug screen. She will be admitted for hydration. Further attempts are being made currently to identify where this pain pump was placed and it is possible to decrease the drugs being administered. Case discussed with Dr. Gautam. - Lab Data Result diagrams: 11/04/20 14:53 11/04/20 14:53 Lab Results 11/04/20 11/04/20 11/04/20 Range/Units 14:53 14:53 14:53 WBC 7.7 (3.8-10.6) k/uL RBC 4.07 (3.80-5.40) m/uL Hgb 12.3 (11.4-16.0) gm/dL Hct 36.8 (34.0-46.0) % MCV 90.5 (80.0-100.0) fL MCH 30.3 (25.0-35.0) pg MCHC 33.4 (31.0-37.0) g/dL RDW 14.3 (11.5-15.5) % Plt Count 290 (150-450) k/uL MPV 6.8 Neutrophils % 71 % Lymphocytes % 17 % Monocytes % 7 % Eosinophils % 3 % Basophils % 1 % Neutrophils # 5.5 (1.3-7.7) k/uL Lymphocytes # 1.3 (1.0-4.8) k/uL Monocytes # 0.6 (0-1.0) k/uL Eosinophils # 0.2 (0-0.7) k/uL Basophils # 0.0 (0-0.2) k/uL PT 10.6 (9.0-12.0) sec INR 1.0 (<1.2) APTT 18.9 L (22.0-30.0) sec VBG pH (7.31-7.41) VBG pCO2 (37-51) mmHg VBG HCO3 (24-28) mmol/L Sodium (137-145) mmol/L Potassium (3.5-5.1) mmol/L Chloride (98-107) mmol/L Carbon Dioxide (22-30) mmol/L Anion Gap mmol/L BUN (7-17) mg/dL Creatinine (0.52-1.04) mg/dL Est GFR (CKD-EPI)AfAm (>60 ml/min/1.73 sqM) Est GFR (CKD-EPI)NonAf (>60 ml/min/1.73 sqM) Glucose (74-99) mg/dL Calcium (8.4-10.2) mg/dL Total Bilirubin (0.2-1.3) mg/dL AST (14-36) U/L ALT (4-34) U/L Alkaline Phosphatase (38-126) U/L Ammonia (<30) umol/L Troponin I (0.000-0.034) ng/mL Total Protein (6.3-8.2) g/dL Albumin (3.5-5.0) g/dL Urine Color Yellow Urine Appearance Clear (Clear) Urine pH 5.5 (5.0-8.0) Ur Specific [place] 1.023 (1.001-1.035) Urine Protein 1+ H (Negative) Urine Glucose (UA) Negative (Negative) Urine Ketones 2+ H (Negative) Urine Blood Small H (Negative) Urine Nitrite Negative (Negative) Urine Bilirubin Negative (Negative) Urine Urobilinogen <2.0 (<2.0) mg/dL Ur Leukocyte Esterase Negative (Negative) Urine RBC 1 (0-5) /hpf Urine WBC 1 (0-5) /hpf Ur Squamous Epith Cells <1 (0-4) /hpf Urine Bacteria Rare H (None) /hpf Hyaline Casts 10 H (0-2) /lpf Urine Mucus Rare H (None) /hpf Urine Opiates Screen Detected H (NotDetected) Ur Oxycodone Screen Not Detected (NotDetected) Urine Methadone Screen Not Detected (NotDetected) Ur Propoxyphene Screen Not Detected (NotDetected) Ur Barbiturates Screen Not Detected (NotDetected) U Tricyclic Antidepress Detected H (NotDetected) Ur Phencyclidine Scrn Not Detected (NotDetected) Ur Amphetamines Screen Not Detected (NotDetected) U Methamphetamines Scrn Not Detected (NotDetected) U Benzodiazepines Scrn Not Detected (NotDetected) Urine Cocaine Screen Not Detected (NotDetected) U Marijuana (THC) Screen Not Detected (NotDetected) Serum Alcohol mg/dL 11/04/20 11/04/20 11/04/20 Range/Units 14:53 14:53 14:53 WBC (3.8-10.6) k/uL RBC (3.80-5.40) m/uL Hgb (11.4-16.0) gm/dL Hct (34.0-46.0) % MCV (80.0-100.0) fL MCH (25.0-35.0) pg MCHC (31.0-37.0) g/dL RDW (11.5-15.5) % Plt Count (150-450) k/uL MPV Neutrophils % % Lymphocytes % % Monocytes % % Eosinophils % % Basophils % % Neutrophils # (1.3-7.7) k/uL Lymphocytes # (1.0-4.8) k/uL Monocytes # (0-1.0) k/uL Eosinophils # (0-0.7) k/uL Basophils # (0-0.2) k/uL PT (9.0-12.0) sec INR (<1.2) APTT (22.0-30.0) sec VBG pH (7.31-7.41) VBG pCO2 (37-51) mmHg VBG HCO3 (24-28) mmol/L Sodium 144 (137-145) mmol/L Potassium 4.3 (3.5-5.1) mmol/L Chloride 106 (98-107) mmol/L Carbon Dioxide 23 (22-30) mmol/L Anion Gap 15 mmol/L BUN 30 H (7-17) mg/dL Creatinine 1.08 H (0.52-1.04) mg/dL Est GFR (CKD-EPI)AfAm 60 (>60 ml/min/1.73 sqM) Est GFR (CKD-EPI)NonAf 52 (>60 ml/min/1.73 sqM) Glucose 124 H (74-99) mg/dL Calcium 9.7 (8.4-10.2) mg/dL Total Bilirubin 0.8 (0.2-1.3) mg/dL AST 118 H (14-36) U/L ALT 56 H (4-34) U/L Alkaline Phosphatase 53 (38-126) U/L Ammonia 11 (<30) umol/L Troponin I <0.012 (0.000-0.034) ng/mL Total Protein 7.9 (6.3-8.2) g/dL Albumin 4.5 (3.5-5.0) g/dL Urine Color Urine Appearance (Clear) Urine pH (5.0-8.0) Ur Specific [place] (1.001-1.035) Urine Protein (Negative) Urine Glucose (UA) (Negative) Urine Ketones (Negative) Urine Blood (Negative) Urine Nitrite (Negative) Urine Bilirubin (Negative) Urine Urobilinogen (<2.0) mg/dL Ur Leukocyte Esterase (Negative) Urine RBC (0-5) /hpf Urine WBC (0-5) /hpf Ur Squamous Epith Cells (0-4) /hpf Urine Bacteria (None) /hpf Hyaline Casts (0-2) /lpf Urine Mucus (None) /hpf Urine Opiates Screen (NotDetected) Ur Oxycodone Screen (NotDetected) Urine Methadone Screen (NotDetected) Ur Propoxyphene Screen (NotDetected) Ur Barbiturates Screen (NotDetected) U Tricyclic Antidepress (NotDetected) Ur Phencyclidine Scrn (NotDetected) Ur Amphetamines Screen (NotDetected) U Methamphetamines Scrn (NotDetected) U Benzodiazepines Scrn (NotDetected) Urine Cocaine Screen (NotDetected) U Marijuana (THC) Screen (NotDetected) Serum Alcohol <10 mg/dL 11/04/20 Range/Units 14:53 WBC (3.8-10.6) k/uL RBC (3.80-5.40) m/uL Hgb (11.4-16.0) gm/dL Hct (34.0-46.0) % MCV (80.0-100.0) fL MCH (25.0-35.0) pg MCHC (31.0-37.0) g/dL RDW (11.5-15.5) % Plt Count (150-450) k/uL MPV Neutrophils % % Lymphocytes % % Monocytes % % Eosinophils % % Basophils % % Neutrophils # (1.3-7.7) k/uL Lymphocytes # (1.0-4.8) k/uL Monocytes # (0-1.0) k/uL Eosinophils # (0-0.7) k/uL Basophils # (0-0.2) k/uL PT (9.0-12.0) sec INR (<1.2) APTT (22.0-30.0) sec VBG pH 7.50 H (7.31-7.41) VBG pCO2 30 L (37-51) mmHg VBG HCO3 23 L (24-28) mmol/L Sodium (137-145) mmol/L Potassium (3.5-5.1) mmol/L Chloride (98-107) mmol/L Carbon Dioxide (22-30) mmol/L Anion Gap mmol/L BUN (7-17) mg/dL Creatinine (0.52-1.04) mg/dL Est GFR (CKD-EPI)AfAm (>60 ml/min/1.73 sqM) Est GFR (CKD-EPI)NonAf (>60 ml/min/1.73 sqM) Glucose (74-99) mg/dL Calcium (8.4-10.2) mg/dL Total Bilirubin (0.2-1.3) mg/dL AST (14-36) U/L ALT (4-34) U/L Alkaline Phosphatase (38-126) U/L Ammonia (<30) umol/L Troponin I (0.000-0.034) ng/mL Total Protein (6.3-8.2) g/dL Albumin (3.5-5.0) g/dL Urine Color Urine Appearance (Clear) Urine pH (5.0-8.0) Ur Specific [place] (1.001-1.035) Urine Protein (Negative) Urine Glucose (UA) (Negative) Urine Ketones (Negative) Urine Blood (Negative) Urine Nitrite (Negative) Urine Bilirubin (Negative) Urine Urobilinogen (<2.0) mg/dL Ur Leukocyte Esterase (Negative) Urine RBC (0-5) /hpf Urine WBC (0-5) /hpf Ur Squamous Epith Cells (0-4) /hpf Urine Bacteria (None) /hpf Hyaline Casts (0-2) /lpf Urine Mucus (None) /hpf Urine Opiates Screen (NotDetected) Ur Oxycodone Screen (NotDetected) Urine Methadone Screen (NotDetected) Ur Propoxyphene Screen (NotDetected) Ur Barbiturates Screen (NotDetected) U Tricyclic Antidepress (NotDetected) Ur Phencyclidine Scrn (NotDetected) Ur Amphetamines Screen (NotDetected) U Methamphetamines Scrn (NotDetected) U Benzodiazepines Scrn (NotDetected) Urine Cocaine Screen (NotDetected) U Marijuana (THC) Screen (NotDetected) Serum Alcohol mg/dL Disposition Clinical Impression: Altered mental status, Delirium due to general medical condition, Dehydration Disposition: ADMITTED IP TO THIS [facility] Condition: Stable Is patient prescribed a controlled substance at d/c from ED?: No Referrals: Tan Peters DO [Primary Care Provider] - 1-2 days Decision to Admit Reason: Admit from EC Decision Date: 11/04/20 Decision Time: 17:20
[2020-11-04 15:05] LABS: VBG PH 7.5 (7.31-7.41)
[2020-11-04 15:16] LABS: ALT 56 U/L (4-34); AST 118 U/L (14-36); African American GFR (CKD) 60 (>60 ml/min/1.73 sqM); Albumin 4.5 g/dL (3.5-5.0); Alcohol <10 mg/dL; Alkaline Phosphatase 53 U/L (38-126); Anion Gap 15 mmol/L; Blood Urea Nitrogen 30 mg/dL (7-17); Calcium 9.7 mg/dL (8.4-10.2); Carbon Dioxide 23 mmol/L (22-30); Chloride 106 mmol/L (98-107); Glucose 124 mg/dL (74-99); Non-African American GFR(CKD) 52 (>60 ml/min/1.73 sqM); Sodium 144 mmol/L (137-145); Total Bilirubin 0.8 mg/dL (0.2-1.3); Total Protein 7.9 g/dL (6.3-8.2)
--- NOTE | 2020-11-04 15:18 | XR ---
EXAMINATION TYPE: XR chest 2V DATE OF EXAM: 11/04/2020 HISTORY: Shortness of breath. COMPARISON: 11/12/2017 TECHNIQUE: Single view of the chest is submitted. FINDINGS: Demonstrated are scattered senescent parenchymal change. There is no evidence for focal infiltrate. The heart is stable. Hilar and mediastinal structures are within normal limits. Degenerative changes are seen of the dorsal spine. IMPRESSION: 1. Chronic changes without evidence for acute pulmonary disease.
--- NOTE | 2020-11-04 15:19 | CT ---
EXAMINATION TYPE: CT brain wo con DATE OF EXAM: 11/04/2020 HISTORY: Altered mental status. Weakness. CT DLP: 1107.4 mGycm. Automated Exposure Control for Dose Reduction was Utilized. TECHNIQUE: CT scan of the head is performed without contrast. COMPARISON: CT brain November 12, 2017. FINDINGS: There is no acute intracranial hemorrhage or midline shift identified. There is mild diff use ventricular and sulcal prominence greatest over bilateral frontal lobes consistent with diffuse a ge-related cerebral atrophy. There is mild to moderate low-attenuation in the periventricular white matter consistent with chronic small vessel ischemic change. Cavum septum lucidum is noted. The globe s are intact and the visualized sinuses are clear. IMPRESSION: No acute intracranial hemorrhage or midline shift. There is mild diffuse cerebral atrop hy and mild to moderate chronic small vessel ischemic change redemonstrated. No significant change f rom most recent CT.
[2020-11-04 15:23] LABS: Basophils % (A) 1 %; Eosinophils # (A) 0.2 k/uL (0-0.7); Eosinophils % (A) 3 %; HCT 36.8 % (34.0-46.0); HGB 12.3 gm/dL (11.4-16.0); Lymphocytes # (A) 1.3 k/uL (1.0-4.8); Lymphocytes % (A) 17 %; MCH 30.3 pg (25.0-35.0); MCHC 33.4 g/dL (31.0-37.0); MCV 90.5 fL (80.0-100.0); Mean Platelet Volume 6.8; Monocytes # (A) 0.6 k/uL (0-1.0); Monocytes % (A) 7 %; Neutrophils # (A) 5.5 k/uL (1.3-7.7); Neutrophils % (A) 71 %; Platelet Count 290 k/uL (150-450); RBC 4.07 m/uL (3.80-5.40); RDW 14.3 % (11.5-15.5); WBC 7.7 k/uL (3.8-10.6)
[2020-11-04 15:26] LABS: Prothrombin Time 10.6 sec (9.0-12.0)
[2020-11-04 15:36] LABS: Partial Thromboplastin Time 18.9 sec (22.0-30.0)
[2020-11-04 15:45] LABS: Potassium 4.3 mmol/L (3.5-5.1)
[2020-11-04 15:54] LABS: Appearance,Urine Clear (Clear); Bacteria,Urine Rare /hpf; Bilirubin,Urine Negative (Negative); Blood,Urine Small (Negative); Color,Urine Yellow; Glucose,Urine (UA) Negative (Negative); Hyaline Casts,Urine 10 /lpf (0-2); Ketones,Urine 2+ (Negative); Leukocyte Esterase,Urine Negative (Negative); Mucus,Urine Rare /hpf; Nitrite,Urine Negative (Negative); PH, Urine 5.5 (5.0-8.0); Protein,Urine 1+ (Negative); RBC,Urine 1 /hpf (0-5); Specific Gravity,Urine 1.023 (1.001-1.035); Squamous Epithelial Cell,Urine <1 /hpf (0-4); Urobilinogen,Urine <2.0 mg/dL (<2.0); WBC,Urine 1 /hpf (0-5)
[2020-11-04 16:04] LABS: Amphetamine Screen,Urine Not Detected (NotDetected); Barbiturate Screen,Urine Not Detected (NotDetected); Benzodiazepines Screen,Urine Not Detected (NotDetected); Cocaine Screen,Urine Not Detected (NotDetected); Methadone Screen, Urine Not Detected (NotDetected); Opiate Screen,Urine Detected (NotDetected); Oxycodone Screen, Urine Not Detected (NotDetected); Phencyclidine Screen,Urine Not Detected (NotDetected); Tricyclic Antidepressant,Urine Detected (NotDetected); Urn Cannabinoid Scrn Not Detected (NotDetected)
[2020-11-04] MEDS ORDERED: ACETAMINOPHEN TAB 325 MG TAB PO PRN (17:16)
[2020-11-04] MEDS ORDERED: NALOXONE 0.4 MG/ML 1 ML VIAL IV PRN (17:16)
[2020-11-04] MEDS: SODIUM CHLORIDE 0.9% 1,000 ML IV SCH (18:16)
[2020-11-04] MEDS ORDERED: LOSARTAN 50 MG TAB PO SCH (19:45)
[2020-11-04] MEDS ORDERED: METOPROLOL SUCCINATE (ER) 25 MG TAB.ER.24H PO SCH (19:45)
[2020-11-04] MEDS ORDERED: hydroCHLOROthiazide 12.5 MG CAP PO SCH (19:45)
[2020-11-04] MEDS: METOPROLOL SUCCINATE (ER) 25 MG TAB.ER.24H PO SCH (23:19)
[2020-11-04] MEDS: LOSARTAN 50 MG TAB PO SCH (23:20)
[2020-11-04] MEDS: hydroCHLOROthiazide 12.5 MG CAP PO SCH (23:20)
[2020-11-05] MEDS: SODIUM CHLORIDE 0.9% 1,000 ML IV SCH ×3 (05:53→21:29)
[2020-11-05 07:33] LABS: Glucose,Whole Blood 106 mg/dL (75-99)
[2020-11-05] MEDS: hydroCHLOROthiazide 12.5 MG CAP PO SCH (08:03)
[2020-11-05] MEDS: LOSARTAN 50 MG TAB PO SCH (08:03)
[2020-11-05] MEDS: METOPROLOL SUCCINATE (ER) 25 MG TAB.ER.24H PO SCH (08:03)
[2020-11-05] MEDS ORDERED: LOSARTAN 50 MG TAB PO SCH (09:00)
[2020-11-05] MEDS ORDERED: METOPROLOL SUCCINATE (ER) 25 MG TAB.ER.24H PO SCH (09:00)
[2020-11-05] MEDS ORDERED: hydroCHLOROthiazide 12.5 MG CAP PO SCH (09:00)
[2020-11-05] MEDS ORDERED: ALBUTEROL NEBULIZED 2.5 MG/3 ML INHALATION PRN (10:18)
[2020-11-05] MEDS ORDERED: ETODOLAC 400 MG TAB PO PRN (10:18)
[2020-11-05] MEDS ORDERED: BACLOFEN 10 MG TAB PO PRN (10:18)
[2020-11-05] MEDS ORDERED: GABAPENTIN 100 MG CAP PO SCH ×2 (10:30→13:00)
[2020-11-05 10:32] LABS: Basophils # (A) 0.06 X 10*3/uL (0.00-0.10); Basophils % (A) 0.7 %; Eosinophils # (A) 0.27 X 10*3/uL (0.04-0.35); Eosinophils % (A) 3.3 %; HCT 36.8 % (37.2-46.3); HGB 11.7 g/dL (12.0-15.0); Lymphocytes # (A) 2.37 X 10*3/uL (0.90-5.00); Lymphocytes % (A) 28.6 %; MCH 29.8 pg (27.0-32.0); MCHC 31.8 g/dL (32.0-37.0); MCV 93.9 fL (80.0-97.0); Mean Platelet Volume 9.5 fL (9.5-12.2); Monocytes # (A) 0.76 X 10*3/uL (0.20-1.00); Monocytes % (A) 9.2 %; Platelet Count 312 X 10*3/uL (140-440); RBC 3.92 X 10*6/uL (4.10-5.20); RDW 14.8 % (11.5-14.5); WBC 8.28 X 10*3/uL (4.50-10.00)
[2020-11-05] MEDS: MULTIVITAMINS, THERA 1 EACH TAB PO SCH (10:53)
[2020-11-05] MEDS: metFORMIN 500 MG TAB PO SCH (10:53)
[2020-11-05] MEDS: ASPIRIN 81 MG PO SCH (10:53)
[2020-11-05] MEDS: DICLOFENAC SODIUM GEL 100 GM TUBE TOPICAL SCH ×2 (11:25→21:21)
[2020-11-05 12:07] LABS: Glucose,Whole Blood 94 mg/dL (75-99)
[2020-11-05] MEDS: ENOXAPARIN 40 MG/0.4 ML SYRINGE SQ SCH (14:10)
[2020-11-05] MEDS: GABAPENTIN 100 MG CAP PO SCH ×2 (16:20→21:21)
[2020-11-05 16:30] LABS: Glucose,Whole Blood 84 mg/dL (75-99)
[2020-11-05 20:32] LABS: Glucose,Whole Blood 91 mg/dL (75-99)
[2020-11-05 20:32] LABS: Albumin 4.3 g/dL (3.80-4.90); Albumin/Globulin Ratio 1.95 (1.60-3.17); Anion Gap 15.7 mmol/L (4.00-12.00); BUN/Creat Ratio 24.29 Ratio (12.00-20.00); Calcium 9.2 mg/dL (8.7-10.3); Carbon Dioxide 25.3 mmol/L (21.6-31.8); Globulin 2.2 g/dL (1.6-3.3); Magnesium 2.1 mg/dL (1.5-2.4); Non-African American GFR(CKD) 87.2 (60.0-200.0); Potassium 3.5 mmol/L (3.5-5.5); Total Bilirubin 0.5 mg/dL (0.2-1.2); Total Protein 6.5 g/dL (6.2-8.2)
[2020-11-05] MEDS ORDERED: AMITRIPTYLINE HCL 50 MG TAB PO SCH (21:00)
[2020-11-05] MEDS ORDERED: ATORVASTATIN 10 MG TAB PO SCH (21:00)
--- NOTE | 2020-11-05 21:01 | P.HPIM ---
History of Present Illness H&P Date: 11/05/20 Chief Complaint: Not feeling well History of presenting complaint: This is a 70-year-old patient, Dr. Peters was chronic stable medical conditions include diabetes, hypertension, hyperlipidemia, memory impairment, osteoarthritis. Patient presented to the ER. Patient not able to tell me exactly as to why she is here. Per the EMS patient was found standing out front of her apartment complex not in any distress. Patient stated that she is having a reaction to some chemicals that maintain his pain Apartment. Patient's pulse ox of 96%. EMS made contact with the [facility] staff and decided that he was spent in an apartment. Patient's daughter was contacted did state that the mother does not seem to be a self today. Patient has not been eating or drinking well for the past few days. Patient herself is not able to give me much of a history. Able tonsil simple questions. She knows that she is in the hospital indefinitely 10 with a year and the month. She cessation not been steady she feels last few days. No fever no chills no cough no urinary symptoms. Appetite is okay Review of systems: GEN.: Tired EYES: None HEENT: None NECK: None RESPIRATORY: None CARDIOVASCULAR: None GASTROINTESTINAL: None GENITOURINARY: None MUSCULOSKELETAL: Some joint pains LYMPHATICS: None HEMATOLOGICAL: None PSYCHIATRY: Forgetful NEUROLOGICAL: None Past medical history to include: Diabetes, hypertension, hyperlipidemia, memory impairment, osteoarthritis, due to stimulator the lumbar spine. Morphine pain pump. Social history: Patient smoked a pack and a half a day for 39 years. Stopped about 15 years ago. No alcohol. Lives alone. Has revealed a walker Physical examination: VITAL SIGNS: 98, 117, 18, 189/93, 94% on room air] GENERAL: BMI 36, resting in bed, comfortable. EYES: Pupils equal. Conjunctiva normal. HEENT: External appearance of nose and ears normal, oral cavity grossly normal. NECK: JVD not raised; masses not palpable. HEART: First and second heart sounds are normal; no edema. LUNGS: Respiratory rate normal; clear to auscultation. ABDOMEN: Soft, nontender, liver spleen not palpable, no masses palpable. PSYCH: Patient knows that she has not hospital, some struggle with the year, knows that is . NEUROLOGICAL: Cranial nerves grossly intact; no facial asymmetry, power and sensation grossly intact. MUSCULAR skeletal: Evidence of OA LYMPHATICS: No lymph nodes palpable in the axilla and neck INVESTIGATIONS, reviewed in the clinical context: WBC 8.2 hemoglobin 11.7 platelets 312 potassium 3.5 creatinine 0.7 EKG tracing personally reviewed by me-normal sinus rhythm rate of 113 CT brain: Mild diffuse cerebral atrophy. Chronic changes Chest x-ray film personally reviewed by me-no obvious acute process Assessment and plan: -This is a patient who presents with not feeling herself. Just feeling unwell. According to the daughter on the phone patient was not sounding herself. Patient has a baseline does use a 4 wheeled walker. The no obvious signs of any infection. Patient has as a morphine pain pump. Physician for the same's been consulted. Nurse called me back unable to get to the office. We'll consult our local pain management team for the same. Admitting diagnosis acute metabolic encephalopathy. Could be from morphine. We will also change baclofen to Flexeril. Which is less sedating -Diabetes mellitus type 2 Continue with metformin. Follow Accu-Cheks -Diabetic peripheral neuropathy On Neurontin. Cut back on the dose -Essential hypertension Continue Toprol-XL, -Hyperlipidemia Continue Crestor -COPD in a previous smoker-stable Use albuterol when necessary -Primary osteoarthritis Use Tylenol as needed -Cognitive impairment Pain management services will be consulted to evaluate the morphine pain pump. Doesn't Neurontin cutback. Past Medical History Past Medical History: CVA/TIA, Diabetes Mellitus, Hyperlipidemia, Hypertension, Memory Impairment, Musculoskeletal Disorder, Osteoarthritis (OA), Pneumonia Additional Past Medical History / Comment(s): BACK PAIN; TIA 2016, Pneumonia, possible heart palpitations-patient states was told about but doesn't remember experiencing this History of Any Multi-Drug Resistant Organisms: None Reported Past Surgical History: Bladder Surgery, Breast Surgery, Hysterectomy, Orthopedic Surgery Additional Past Surgical History / Comment(s): neurostimulator lower lumbar 06/2013 current. hammer toe 10/22,. breast reduction 2004. BLADDER SUSPENSION 2004, Morphine pain pump -2018. LT BREAST BX, BILAT CATARACT SX Past Anesthesia/Blood Transfusion Reactions: No Reported Reaction Past Psychological History: No Psychological Hx Reported Smoking Status: Former smoker Past Alcohol Use History: None Reported Additional Past Alcohol Use History / Comment(s): smoked 39 years 1 1/2ppd quit age 54 Past Drug Use History: None Reported - Past Family History Mother Family Medical History: CVA/TIA, Diabetes Mellitus Father Additional Family Medical History / Comment(s): bone cancer Brother(s) Family Medical History: Diabetes Mellitus Additional Family Medical History / Comment(s): bone cancer Sister(s) Family Medical History: Diabetes Mellitus Medications and Allergies Home Medications Medication Instructions Recorded Confirmed Type Amitriptyline HCl [Elavil] 150 mg PO HS 01/11/15 11/04/20 History Baclofen [Lioresal] 10 mg PO TID PRN 11/12/17 11/04/20 History Diclofenac Sodium [Voltaren Gel] 2 gram TOPICAL BID 11/12/17 11/04/20 History Losartan/Hydrochlorothiazide 1 tab PO DAILY 11/12/17 11/04/20 History [Losartan-Hctz 100-12.5 mg Tab] Fluticasone Nasal [place] [Flonase 2 spray EA NOSTRIL HS 12/12/17 11/04/20 History Nasal [place]] Multivitamins, Thera [Multivitamin 1 tab PO DAILY 12/12/17 11/04/20 History (formulary)] Etodolac [Lodine] 400 mg PO BID PRN 01/17/18 11/04/20 History Rosuvastatin Calcium [Crestor] 5 mg PO HS 01/17/18 11/04/20 History metFORMIN HCL [Glucophage] 500 mg PO DAILY 11/18/19 11/04/20 History Albuterol Nebulized [Ventolin 2.5 mg INHALATION RT-QID PRN 11/04/20 11/04/20 History Nebulized] Aspirin EC [Ecotrin Low Dose] 81 mg PO DAILY 11/04/20 11/04/20 History Calcium Carbonate [Calcium] 600 mg PO BID 11/04/20 11/04/20 History Gabapentin [Neurontin] 100 mg PO DAILY@1300 11/04/20 11/04/20 History Gabapentin [Neurontin] 200 mg PO BID 11/04/20 11/04/20 History Hydrochlorothiazide 12.5 mg PO DAILY 11/04/20 11/04/20 History [hydroCHLOROthiazide] Metoprolol Succinate (ER) [Toprol 25 mg PO DAILY 11/04/20 11/04/20 History Xl] Morphine Pain Pump 1 dose INTRATHECA DIRECTED 11/04/20 11/04/20 History Potassium Chloride ER [K-Dur 10] 20 meq PO BID 11/04/20 11/04/20 History Allergies Allergy/AdvReac Type Severity Reaction Status Date / Time dog dander Allergy ALLERGY Verified 11/04/20 14:24 SYMPTOMS mold Allergy ALLERGY Verified 11/04/20 14:24 SYMPTOMS dust mites Allergy ALLERGY Uncoded 05/28/20 09:49 SYMPTOMS Physical Exam Vitals: Vital Signs Temp Pulse Pulse Resp BP BP Pulse Ox 11/05/20 07:49 99.0 F 95 16 169/88 92 L 11/05/20 01:26 97.5 F L 98 18 173/83 91 L 11/04/20 20:00 98.5 F 111 H 19 186/78 92 L 11/04/20 19:39 111 H 18 194/90 91 L 11/04/20 16:23 109 H 16 167/90 94 L 11/04/20 14:24 98 F 117 H 18 189/93 94 L Intake and Output 11/04/20 11/05/20 11/05/20 22:59 06:59 14:59 Other: Voiding Method Toilet Weight 95.254 kg Results CBC & Chem 7: 11/05/20 06:29 11/05/20 06:29 Labs: Abnormal Lab Results - Last 24 Hours (Table) 11/04/20 11/04/20 11/04/20 Range/Units 14:53 14:53 14:53 APTT 18.9 L (22.0-30.0) sec VBG pH (7.31-7.41) VBG pCO2 (37-51) mmHg VBG HCO3 (24-28) mmol/L BUN 30 H (7-17) mg/dL Creatinine 1.08 H (0.52-1.04) mg/dL Glucose 124 H (74-99) mg/dL POC Glucose (mg/dL) (75-99) mg/dL AST 118 H (14-36) U/L ALT 56 H (4-34) U/L Urine Protein 1+ H (Negative) Urine Ketones 2+ H (Negative) Urine Blood Small H (Negative) Urine Bacteria Rare H (None) /hpf Hyaline Casts 10 H (0-2) /lpf Urine Mucus Rare H (None) /hpf Urine Opiates Screen Detected H (NotDetected) U Tricyclic Antidepress Detected H (NotDetected) 11/04/20 11/05/20 Range/Units 14:53 07:17 APTT (22.0-30.0) sec VBG pH 7.50 H (7.31-7.41) VBG pCO2 30 L (37-51) mmHg VBG HCO3 23 L (24-28) mmol/L BUN (7-17) mg/dL Creatinine (0.52-1.04) mg/dL Glucose (74-99) mg/dL POC Glucose (mg/dL) 106 H (75-99) mg/dL AST (14-36) U/L ALT (4-34) U/L Urine Protein (Negative) Urine Ketones (Negative) Urine Blood (Negative) Urine Bacteria (None) /hpf Hyaline Casts (0-2) /lpf Urine Mucus (None) /hpf Urine Opiates Screen (NotDetected) U Tricyclic Antidepress (NotDetected)
[2020-11-05] MEDS: CALCIUM CARBONATE 500 MG CHEWABLE PO SCH (21:21)
[2020-11-06 07:05] LABS: Glucose,Whole Blood 147 mg/dL (75-99)
[2020-11-06] MEDS: MULTIVITAMINS, THERA 1 EACH TAB PO SCH (07:49)
[2020-11-06] MEDS: METOPROLOL SUCCINATE (ER) 25 MG TAB.ER.24H PO SCH (07:49)
[2020-11-06] MEDS: metFORMIN 500 MG TAB PO SCH (07:49)
[2020-11-06] MEDS: CALCIUM CARBONATE 500 MG CHEWABLE PO SCH (07:49)
[2020-11-06] MEDS: ASPIRIN 81 MG PO SCH (07:49)
[2020-11-06] MEDS: LOSARTAN 50 MG TAB PO SCH (07:50)
[2020-11-06] MEDS: DICLOFENAC SODIUM GEL 100 GM TUBE TOPICAL SCH (07:50)
[2020-11-06] MEDS: GABAPENTIN 100 MG CAP PO SCH (07:50)
[2020-11-06 07:59] VITALS: BP 177/88; PULSE 86; RESP 16; TEMP 98.4
[2020-11-06] MEDS: ENOXAPARIN 40 MG/0.4 ML SYRINGE SQ SCH (08:29)
[2020-11-06 11:42] LABS: Glucose,Whole Blood 91 mg/dL (75-99)
--- NOTE | 2020-11-06 11:45 | P.PAINCN ---
History of Present Illness - Reason for Consult Consult date: 11/06/20 - History of Present Illness This is 70 years old female with a history of chronic low back pain, she's been on intrathecal opioid Therapy for long-term, patient was admitted to [facility] yesterday, secondary to altered mental status, patient reported that her intrathecal pain pump was filled in July 2020, and she has been on the same dose since July 2020, she is currently on morphine concentration 25 mg per mL and bupivacaine 10 mg per mL, and she is receiving a daily dose of morphine 4.79 mg per day and daily dose of bupivacaine 1.9 mg per day, daily during the examination patient was fully alert oriented 3, and she is aware that she was confused yesterday, she feels ok today Past Medical History Past Medical History: CVA/TIA, Diabetes Mellitus, Hyperlipidemia, Hypertension, Memory Impairment, Musculoskeletal Disorder, Osteoarthritis (OA), Pneumonia Additional Past Medical History / Comment(s): BACK PAIN; TIA 2016, Pneumonia, possible heart palpitations-patient states was told about but doesn't remember experiencing this History of Any Multi-Drug Resistant Organisms: None Reported Past Surgical History: Bladder Surgery, Breast Surgery, Hysterectomy, Orthopedic Surgery Additional Past Surgical History / Comment(s): neurostimulator lower lumbar 06/2013 current. hammer toe 10/22,. breast reduction 2004. BLADDER SUSPENSION 2004, Morphine pain pump . LT BREAST BX, BILAT CATARACT SX Past Anesthesia/Blood Transfusion Reactions: No Reported Reaction Past Psychological History: No Psychological Hx Reported Smoking Status: Former smoker Past Alcohol Use History: None Reported Additional Past Alcohol Use History / Comment(s): smoked 39 years 1 1/2ppd quit age 54 Past Drug Use History: None Reported - Past Family History Mother Family Medical History: CVA/TIA, Diabetes Mellitus Father Additional Family Medical History / Comment(s): bone cancer Brother(s) Family Medical History: Diabetes Mellitus Additional Family Medical History / Comment(s): bone cancer Sister(s) Family Medical History: Diabetes Mellitus Medications and Allergies Home Medications Medication Instructions Recorded Confirmed Type Amitriptyline HCl [Elavil] 150 mg PO HS 01/11/15 11/04/20 History Baclofen [Lioresal] 10 mg PO TID PRN 11/12/17 11/04/20 History Diclofenac Sodium [Voltaren Gel] 2 gram TOPICAL BID 11/12/17 11/04/20 History Losartan/Hydrochlorothiazide 1 tab PO DAILY 11/12/17 11/04/20 History [Losartan-Hctz 100-12.5 mg Tab] Fluticasone Nasal [place] [Flonase 2 spray EA NOSTRIL HS 12/12/17 11/04/20 History Nasal [place]] Multivitamins, Thera [Multivitamin 1 tab PO DAILY 12/12/17 11/04/20 History (formulary)] Etodolac [Lodine] 400 mg PO BID PRN 01/17/18 11/04/20 History Rosuvastatin Calcium [Crestor] 5 mg PO HS 01/17/18 11/04/20 History metFORMIN HCL [Glucophage] 500 mg PO DAILY 11/18/19 11/04/20 History Albuterol Nebulized [Ventolin 2.5 mg INHALATION RT-QID PRN 11/04/20 11/04/20 History Nebulized] Aspirin EC [Ecotrin Low Dose] 81 mg PO DAILY 11/04/20 11/04/20 History Calcium Carbonate [Calcium] 600 mg PO BID 11/04/20 11/04/20 History Gabapentin [Neurontin] 100 mg PO DAILY@1300 11/04/20 11/04/20 History Gabapentin [Neurontin] 200 mg PO BID 11/04/20 11/04/20 History Hydrochlorothiazide 12.5 mg PO DAILY 11/04/20 11/04/20 History [hydroCHLOROthiazide] Metoprolol Succinate (ER) [Toprol 25 mg PO DAILY 11/04/20 11/04/20 History Xl] Morphine Pain Pump 1 dose INTRATHECA DIRECTED 11/04/20 11/04/20 History Potassium Chloride ER [K-Dur 10] 20 meq PO BID 11/04/20 11/04/20 History Allergies Allergy/AdvReac Type Severity Reaction Status Date / Time dog dander Allergy ALLERGY Verified 11/04/20 14:24 SYMPTOMS mold Allergy ALLERGY Verified 11/04/20 14:24 SYMPTOMS dust mites Allergy ALLERGY Uncoded 05/28/20 09:49 SYMPTOMS Physical Exam Vitals: Vital Signs Temp Pulse Pulse Resp BP Pulse Ox 11/06/20 07:59 98.4 F 86 16 177/88 92 L 11/06/20 03:02 97.7 F 82 18 148/77 93 L 11/05/20 19:49 98.1 F 73 18 174/91 96 11/05/20 17:37 84 11/05/20 17:32 99 11/05/20 14:01 98.6 F 85 18 180/82 95 Intake and Output 11/05/20 11/06/20 11/06/20 22:59 06:59 14:59 Other: Voiding Method Toilet Toilet # Voids 2 Physical Examinations : -Constitutiona : Cooperative , not in acute distress . Aler ,Oriented X 3 -HEENT : nech : supple , no Lymphadenopathy , normal thyroid size . : eyes : no ptosis , no icterus, no photophobia . - neurologic : Cranial nerve II to XII intact , no focal neurological deffecit . -psychatric : alert , oriented X 3 , appropriate affect , intact judgment and insight . -Lymphatic : no Lymphadenopathy . Results CBC & Chem 7: 11/05/20 06:29 11/05/20 06:29 Labs: Abnormal Lab Results - Last 24 Hours (Table) 11/05/20 11/06/20 Range/Units 06:29 07:03 Anion Gap 15.70 H (4.00-12.00) mmol/L BUN/Creatinine Ratio 24.29 H (12.00-20.00) Ratio POC Glucose (mg/dL) 147 H (75-99) mg/dL AST 92 H (13-35) U/L ALT 63 H (8-44) U/L Assessment and Plan Plan: Assessment and plan= 70 years old female with a history of chronic pain syndrome she is currently on intrathecal opioid therapy, and had intrathecal dose , as the same since July 2020, for this isn't her symptoms is very unlikely to be related to the intrathecal pain pump, patient currently receiving a daily dose of morphine sulfate 4.79 mg per day, bupivacaine 1.9 mg per day, most likely altered mental status could be secondary to a different etiology,IE urinary tract infection, patient will follow up with the Dr. Villa after discharge, for intrathecal pain pump management Time with Patient: Less than 30 PQRS Measure Charge Sheet PQRS Narrative: Smoking Status Former smoker Blood Pressure [Right Arm 177/88 Supine] Blood Pressure 194/90 Pain Intensity [None] 3 Pain Intensity [Lower Back] 9 Pain Intensity 3 Pain Scale Used Numeric (1 - 10) Scale Used Numeric (1 - 10) Home Medications: Ambulatory Orders Amitriptyline HCl [Elavil] 150 mg PO HS 01/11/15 Baclofen [Lioresal] 10 mg PO TID PRN 11/12/17 Diclofenac Sodium [Voltaren Gel] 2 gram TOPICAL BID 11/12/17 Losartan/Hydrochlorothiazide [Losartan-Hctz 100-12.5 mg Tab] 1 tab PO DAILY 11/12/17 Fluticasone Nasal [place] [Flonase Nasal [place]] 2 spray EA NOSTRIL HS 12/12/17 Multivitamins, Thera [Multivitamin (formulary)] 1 tab PO DAILY 12/12/17 Etodolac [Lodine] 400 mg PO BID PRN 01/17/18 Rosuvastatin Calcium [Crestor] 5 mg PO HS 01/17/18 metFORMIN HCL [Glucophage] 500 mg PO DAILY 11/18/19 Albuterol Nebulized [Ventolin Nebulized] 2.5 mg INHALATION RT-QID PRN 11/04/20 Aspirin EC [Ecotrin Low Dose] 81 mg PO DAILY 11/04/20 Calcium Carbonate [Calcium] 600 mg PO BID 11/04/20 Gabapentin [Neurontin] 100 mg PO DAILY@1300 11/04/20 Gabapentin [Neurontin] 200 mg PO BID 11/04/20 Hydrochlorothiazide [hydroCHLOROthiazide] 12.5 mg PO DAILY 11/04/20 Metoprolol Succinate (ER) [Toprol Xl] 25 mg PO DAILY 11/04/20 Morphine Pain Pump 1 dose INTRATHECA DIRECTED 11/04/20 Potassium Chloride ER [K-Dur 10] 20 meq PO BID 11/04/20
--- NOTE | 2020-11-06 20:57 | P.DS ---
Providers Date of admission: 11/04/20 17:16 Expected date of discharge: 11/06/20 Attending physician: Elias Gautam Consults: 11/05/20 20:59 Consult Physician Routine Consulting Provider: Ozzy Whitehead Consult Reason/Comments: Evaluate morphine pump Do you want consulting provider notified?: Yes Primary care physician: [facility] Course: Chief Complaint: Not feeling well History of presenting complaint: This is a 70-year-old patient, Dr. Peters was chronic stable medical conditions include diabetes, hypertension, hyperlipidemia, memory impairment, osteoarthritis. Patient presented to the ER. Patient not able to tell me exactly as to why she is here. Per the EMS patient was found standing out front of her apartment complex not in any distress. Patient stated that she is having a reaction to some chemicals that maintain his pain Apartment. Patient's pulse ox of 96%. EMS made contact with the [facility] staff and decided that he was spent in an apartment. Patient's daughter was contacted did state that the mother does not seem to be a self today. Patient has not been eating or drinking well for the past few days. Patient herself is not able to give me much of a history. Able tonsil simple questions. She knows that she is in the hospital indefinitely 10 with a year and the month. She cessation not been steady she feels last few days. No fever no chills no cough no urinary symptoms. Appetite is okay. Patient admitted with acute delirium/metabolic encephalopathy. [place] to be from underlying UTI. Started on IV ceftriaxone. Today: Discussed with Dr. Whitehead from anesthesia. He did check on patient's pain pump. Which is normally managed by Dr. leonardo. Patient mental sensorium is completely improved. She knows where she is why she is here. Her renal functions also improved. Was found to have an element of dehydration. From decreased oral intake. Discussion and discharge planning more than 35 minutes Consultation: from anesthesia Past medical history to include: Diabetes, hypertension, hyperlipidemia, memory impairment, osteoarthritis, due to stimulator the lumbar spine. Morphine pain pump. Social history: Patient smoked a pack and a half a day for 39 years. Stopped about 15 years ago. No alcohol. Lives alone. Has revealed a walker Physical examination: VITAL SIGNS: 98.4, 86, 16, 148 x 77, 92% room air GENERAL: Resting bed, awake comfortable. EYES: Pupils equal. Conjunctiva normal. NECK: JVD not raised; masses not palpable. HEART: First and second heart sounds are normal; no edema. LUNGS: Respiratory rate normal; clear to auscultation. ABDOMEN: Soft, nontender, liver spleen not palpable, no masses palpable. PSYCH: AO 3, mood and affect normal NEUROLOGICAL: Cranial nerves grossly intact; no facial asymmetry, power and sensation grossly intact. MUSCULAR skeletal: Evidence of OA INVESTIGATIONS, reviewed in the clinical context: WBC 8.2 hemoglobin 11.7 platelets 312 potassium 3.5 creatinine 0.7 EKG tracing personally reviewed by me-normal sinus rhythm rate of 113 CT brain: Mild diffuse cerebral atrophy. Chronic changes Chest x-ray film personally reviewed by me-no obvious acute process Assessment and plan: -Acute metabolic encephalopathy/delirium from UTI-improved -Diabetes mellitus type 2 Continue with metformin. Follow Accu-Cheks -Diabetic peripheral neuropathy On Neurontin. Cut back on the dose -Essential hypertension Continue Toprol-XL, -Hyperlipidemia Continue Crestor -COPD in a previous smoker-stable Use albuterol when necessary -Primary osteoarthritis Use Tylenol as needed -Cognitive impairment -Patient is a chronic pain pump. Being managed by This was checked by from anesthesia. Disposition: Home Patient Condition at Discharge: Stable Plan - Discharge Summary Discharge Rx Participant: No New Discharge Prescriptions: New Cefuroxime Axetil [Ceftin] 500 mg PO BID 1 Days #6 tab Cyclobenzaprine [Flexeril] 5 mg PO TID PRN #30 tablet PRN Reason: Muscle Spasm Continue Amitriptyline HCl [Elavil] 150 mg PO HS Losartan/Hydrochlorothiazide [Losartan-Hctz 100-12.5 mg Tab] 1 tab PO DAILY Diclofenac Sodium [Voltaren Gel] 2 gram TOPICAL BID Multivitamins, Thera [Multivitamin (formulary)] 1 tab PO DAILY Fluticasone Nasal [place] [Flonase Nasal [place]] 2 spray EA NOSTRIL HS Etodolac [Lodine] 400 mg PO BID PRN PRN Reason: Pain Rosuvastatin Calcium [Crestor] 5 mg PO HS metFORMIN HCL [Glucophage] 500 mg PO DAILY Calcium Carbonate [Calcium] 600 mg PO BID Morphine Pain Pump 1 dose INTRATHECA DIRECTED Potassium Chloride ER [K-Dur 10] 20 meq PO BID Metoprolol Succinate (ER) [Toprol XL] 25 mg PO DAILY Aspirin EC [Ecotrin Low Dose] 81 mg PO DAILY Albuterol Nebulized [Ventolin Nebulized] 2.5 mg INHALATION RT-QID PRN PRN Reason: Shortness Of Breath Changed Gabapentin [Neurontin] 100 mg PO TID #0 Discontinued Baclofen [Lioresal] 10 mg PO TID PRN PRN Reason: Pain Hydrochlorothiazide [hydroCHLOROthiazide] 12.5 mg PO DAILY Gabapentin [Neurontin] 100 mg PO DAILY@1300 Discharge Medication List Amitriptyline HCl [Elavil] 150 mg PO HS 01/11/15 [History] Diclofenac Sodium [Voltaren Gel] 2 gram TOPICAL BID 11/12/17 [History] Losartan/Hydrochlorothiazide [Losartan-Hctz 100-12.5 mg Tab] 1 tab PO DAILY 11/12/17 [History] Fluticasone Nasal [place] [Flonase Nasal [place]] 2 spray EA NOSTRIL HS 12/12/17 [History] Multivitamins, Thera [Multivitamin (formulary)] 1 tab PO DAILY 12/12/17 [History] Etodolac [Lodine] 400 mg PO BID PRN 01/17/18 [History] Rosuvastatin Calcium [Crestor] 5 mg PO HS 01/17/18 [History] metFORMIN HCL [Glucophage] 500 mg PO DAILY 11/18/19 [History] Albuterol Nebulized [Ventolin Nebulized] 2.5 mg INHALATION RT-QID PRN 11/04/20 [History] Aspirin EC [Ecotrin Low Dose] 81 mg PO DAILY 11/04/20 [History] Calcium Carbonate [Calcium] 600 mg PO BID 11/04/20 [History] Metoprolol Succinate (ER) [Toprol XL] 25 mg PO DAILY 11/04/20 [History] Morphine Pain Pump 1 dose INTRATHECA DIRECTED 11/04/20 [History] Potassium Chloride ER [K-Dur 10] 20 meq PO BID 11/04/20 [History] Cefuroxime Axetil [Ceftin] 500 mg PO BID 1 Days #6 tab 11/06/20 [Rx] Cyclobenzaprine [Flexeril] 5 mg PO TID PRN #30 tablet 11/06/20 [Rx] Gabapentin [Neurontin] 100 mg PO TID #0 11/06/20 [Rx] Follow up Appointment(s)/Referral(s): [facility], [NON-STAFF] - As Needed Tan Peters DO [Primary Care Provider] - 1-2 days (Office will call you with your appointment date and time. Thank you.) Patient Instructions/Handouts: Dehydration (GEN), Urinary Tract Infection in Women (GEN) Discharge Disposition: HOME SELF-CARE
== END 2020-11-06 14:29 | disposition home health service (06) | DRG 689 ==
LOC: EC 14:14 → 4SSUR 17:16
PROVIDERS: ADMIT Hospitalist; ATTEND Hospitalist
DX: N39.0 Urinary tract infection, site not specified (principal); G93.41 Metabolic encephalopathy; E11.42 Type 2 diabetes mellitus with diabetic polyneuropathy; J44.9 Chronic obstructive pulmonary disease, unspecified; Z20.822 Contact with and (suspected) exposure to COVID-19; E86.0 Dehydration; G89.4 Chronic pain syndrome; M54.5 Low back pain; I10 Essential (primary) hypertension; E78.5 Hyperlipidemia, unspecified; M19.91 Primary osteoarthritis, unspecified site; Z79.82 Long term (current) use of aspirin; Z79.84 Long term (current) use of oral hypoglycemic drugs; Z79.899 Other long term (current) drug therapy; Z87.891 Personal history of nicotine dependence; Z87.01 Personal history of pneumonia (recurrent); Z90.710 Acquired absence of both cervix and uterus; Z96.82 Presence of neurostimulator; Z87.39 Personal history of other diseases of the musculoskeletal system and connective tissue; Z86.73 Personal history of transient ischemic attack (TIA), and cerebral infarction without residual deficits; Z87.2 Personal history of diseases of the skin and subcutaneous tissue; Z87.448 Personal history of other diseases of urinary system; Z96.9 Presence of functional implant, unspecified; Z98.42 Cataract extraction status, left eye; Z98.41 Cataract extraction status, right eye; Z60.2 Problems related to living alone; Z98.890 Other specified postprocedural states; Z91.048 Other nonmedicinal substance allergy status; Z83.3 Family history of diabetes mellitus; Z82.3 Family history of stroke; Z80.8 Family history of malignant neoplasm of other organs or systems
CPT/HCPCS: 36415; 70450; 71046; 80053; 80306; 80320; 81001; 82140; 82803; 83735; 84484; 85025; 85610; 85730; 87636; 93005; 94640; 96360; 96361; 99285

== ENCOUNTER 2021-03-18 04:23 | Observation (INO) | payer MEDICARE, OTHER ==
[2021-03-18] MEDS ORDERED: ONDANSETRON 4 MG/2 ML VIAL IVP STA (04:44)
[2021-03-18] MEDS ORDERED: SODIUM CHLORIDE 0.9% 1,000 ML IV STA (04:44)
[2021-03-18 08:00] LABS: Basophils % (A) 0 %; Eosinophils % (A) 0 %; HCT 38.7 % (34.0-46.0); HGB 12.8 gm/dL (11.4-16.0); Lymphocytes # (A) 1.4 k/uL (1.0-4.8); Lymphocytes % (A) 15 %; MCH 30.7 pg (25.0-35.0); MCHC 33.2 g/dL (31.0-37.0); MCV 92.5 fL (80.0-100.0); Mean Platelet Volume 6.7; Monocytes # (A) 0.4 k/uL (0-1.0); Monocytes % (A) 4 %; Neutrophils # (A) 7.4 k/uL (1.3-7.7); Neutrophils % (A) 79 %; Platelet Count 352 k/uL (150-450); RBC 4.18 m/uL (3.80-5.40); RDW 14.6 % (11.5-15.5); WBC 9.3 k/uL (3.8-10.6)
[2021-03-18 08:21] LABS: ALT 17 U/L (4-34); AST 26 U/L (14-36); African American GFR (CKD) >90 (>60 ml/min/1.73 sqM); Alkaline Phosphatase 67 U/L (38-126); Amylase 111 U/L (30-110); Anion Gap 8 mmol/L; Blood Urea Nitrogen 10 mg/dL (7-17); Calcium 9.8 mg/dL (8.4-10.2); Carbon Dioxide 28 mmol/L (22-30); Chloride 101 mmol/L (98-107); Glucose 133 mg/dL (74-99); Lipase 42 U/L (23-300); Non-African American GFR(CKD) >90 (>60 ml/min/1.73 sqM); Potassium 4.2 mmol/L (3.5-5.1); Sodium 137 mmol/L (137-145); Total Bilirubin 0.3 mg/dL (0.2-1.3)
--- NOTE | 2021-03-18 09:51 | CT ---
EXAMINATION TYPE: CT abdomen pelvis w con DATE OF EXAM: 03/18/2021 HISTORY: Nausea, Vomiting, and Diarrhea CT DLP: 1209.5mGycm Automated Exposure Control for Dose Reduction was Utilized. CONTRAST: CT scan of the abdomen and pelvis is performed without oral but with IV Contrast, patient injected wi th 100 ml mL of Isovue 300. COMPARISON: None. FINDINGS: LUNG BASES: Three-vessel severe coronary artery calcification and/or stents, correlate clinically. [place] rgical clips inferiorly in the right breast. Heart size upper limits of normal. Mild/moderate bibasil ar linear scarring and/or atelectasis. LIVER/GB: No significant abnormality is appreciated. PANCREAS: Mild to moderate atrophy inferior head and uncinate process. SPLEEN: No significant abnormality is seen. ADRENALS: No significant abnormality is seen. KIDNEYS: Symmetric cortical medullary uptake and excretion without hydronephrosis seen bilaterally. T here is subcentimeter thin-walled cyst left kidney upper to midpole level coronal image 66. BOWEL: Slightly suboptimal evaluation without enteric contrast. Stomach poorly distended and thus sub optimally evaluated. No suspicious small or large bowel dilatation. Normal-appearing appendix posteri usama from cecum. UTERUS/ADNEXA: Uterus is surgically absent or markedly atrophic. Scattered bilateral pelvic phlebolit hs incidentally noted. LYMPH NODES: No greater than 1cm abdominal or pelvic lymph nodes are appreciated. OSSEOUS STRUCTURES: Subtle slight grade 1 anterolisthesis L4 on L5. Multilevel spondylolisthesis lowe r lumbar spine. [id number] spurring and narrowing both hip joints. OTHER: There is right posterior spinal stimulator device and left anterior battery pack noted. Modera te to severe calcified plaque of the aorta extends into branch vessels IMPRESSION: No bowel obstruction. No acute finding identified to account for patient's symptoms.
[2021-03-18] MEDS ORDERED: ACETAMINOPHEN TAB 500 MG TAB PO STA (10:00)
[2021-03-18] MEDS ORDERED: ONDANSETRON 4 MG/2 ML VIAL IVP PRN (10:35)
[2021-03-18] MEDS ORDERED: NALOXONE 0.4 MG/ML 1 ML VIAL IV PRN (10:35)
--- NOTE | 2021-03-18 10:40 | ED ---
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 Unfortunately charting was not done prior to this. Patient complains of abdominal discomfort and diarrhea. Patient states she has had approximately 10 episodes of diarrhea. Onset of symptoms was within the last 24 hours. Fevers at home. Patient questions if she could've gotten a hold of some bad food. - Related Data Home Medications Medication Instructions Recorded Confirmed Amitriptyline HCl [Elavil] 150 mg PO HS 01/11/15 11/04/20 Diclofenac Sodium [Voltaren Gel] 2 gram TOPICAL BID 11/12/17 11/04/20 Losartan/Hydrochlorothiazide 1 tab PO DAILY 11/12/17 11/04/20 [Losartan-Hctz 100-12.5 mg Tab] Fluticasone Nasal [place] [Flonase 2 spray EA NOSTRIL HS 12/12/17 11/04/20 Nasal [place]] Multivitamins, Thera [Multivitamin 1 tab PO DAILY 12/12/17 11/04/20 (formulary)] Etodolac [Lodine] 400 mg PO BID PRN 01/17/18 11/04/20 Rosuvastatin Calcium [Crestor] 5 mg PO HS 01/17/18 11/04/20 metFORMIN HCL [Glucophage] 500 mg PO DAILY 11/18/19 11/04/20 Albuterol Nebulized [Ventolin 2.5 mg INHALATION RT-QID PRN 11/04/20 11/04/20 Nebulized] Aspirin EC [Ecotrin Low Dose] 81 mg PO DAILY 11/04/20 11/04/20 Calcium Carbonate [Calcium] 600 mg PO BID 11/04/20 11/04/20 Metoprolol Succinate (ER) [Toprol 25 mg PO DAILY 11/04/20 11/04/20 XL] Morphine Pain Pump 1 dose INTRATHECA DIRECTED 11/04/20 11/04/20 Potassium Chloride ER [K-Dur 10] 20 meq PO BID 11/04/20 11/04/20 Previous Rx's Medication Instructions Recorded Cefuroxime Axetil [Ceftin] 500 mg PO BID 1 Days #6 tab 11/06/20 Cyclobenzaprine [Flexeril] 5 mg PO TID PRN #30 tablet 11/06/20 Gabapentin [Neurontin] 100 mg PO TID #0 11/06/20 Allergies Allergy/AdvReac Type Severity Reaction Status Date / Time dog dander Allergy ALLERGY Verified 11/04/20 14:24 SYMPTOMS mold Allergy ALLERGY Verified 11/04/20 14:24 SYMPTOMS dust mites Allergy ALLERGY Uncoded 05/28/20 09:49 SYMPTOMS Review of Systems ROS Statement: Those systems with pertinent positive or pertinent negative responses have been documented in the HPI. ROS Other: All systems not noted in ROS Statement are negative. Constitutional: Denies: fever Eyes: Denies: eye pain ENT: Denies: ear pain Respiratory: Denies: cough Cardiovascular: Denies: chest pain Gastrointestinal: Reports: abdominal pain, diarrhea Genitourinary: Denies: dysuria Musculoskeletal: Denies: back pain Skin: Denies: rash Past Medical History Past Medical History: CVA/TIA, Diabetes Mellitus, Hyperlipidemia, Hypertension, Memory Impairment, Musculoskeletal Disorder, Osteoarthritis (OA), Pneumonia Additional Past Medical History / Comment(s): BACK PAIN; TIA 2016, Pneumonia, possible heart palpitations-patient states was told about but doesn't remember experiencing this History of Any Multi-Drug Resistant Organisms: None Reported Past Surgical History: Bladder Surgery, Breast Surgery, Hysterectomy, Orthopedic Surgery Additional Past Surgical History / Comment(s): neurostimulator lower lumbar 06/2013 current. hammer toe 10/22,. breast reduction 2004. BLADDER SUSPENSION 2004, Morphine pain pump -2018. LT BREAST BX, BILAT CATARACT SX Past Anesthesia/Blood Transfusion Reactions: No Reported Reaction Past Psychological History: No Psychological Hx Reported Smoking Status: Former smoker Past Alcohol Use History: None Reported Past Drug Use History: None Reported - Past Family History Mother Family Medical History: CVA/TIA, Diabetes Mellitus Father Additional Family Medical History / Comment(s): bone cancer Brother(s) Family Medical History: Diabetes Mellitus Additional Family Medical History / Comment(s): bone cancer Sister(s) Family Medical History: Diabetes Mellitus General Exam Limitations: no limitations General appearance: alert, in no apparent distress Head exam: Present: normocephalic Eye exam: Present: normal appearance Neck exam: Present: normal inspection Respiratory exam: Present: normal lung sounds bilaterally Cardiovascular Exam: Present: regular rate, normal rhythm GI/Abdominal exam: Present: soft, tenderness (Mild diffuse tenderness). Absent: distended Extremities exam: Present: normal inspection Neurological exam: Present: alert Psychiatric exam: Present: normal affect, normal mood Skin exam: Present: normal color Course Vital Signs 03/18/21 03/18/21 03/18/21 04:24 04:32 07:59 Temperature 100.6 F H Pulse Rate 102 H 99 94 Respiratory 30 H 20 20 Rate Blood Pressure 207/98 203/92 171/82 O2 Sat by Pulse 93 L 95 97 Oximetry Medical Decision Making - Medical Decision Making Patient reevaluated and still had abdominal discomfort. Case was discussed with Dr. Gautam, who will admit covering for Dr. Peters. He recommends covering patient with Flagyl and Zosyn. Patient did not feel comfortable with discharge home. - Lab Data Result diagrams: 03/18/21 06:47 03/18/21 06:47 Lab Results 03/18/21 03/18/21 Range/Units 06:47 06:47 WBC 9.3 (3.8-10.6) k/uL RBC 4.18 (3.80-5.40) m/uL Hgb 12.8 (11.4-16.0) gm/dL Hct 38.7 (34.0-46.0) % MCV 92.5 (80.0-100.0) fL MCH 30.7 (25.0-35.0) pg MCHC 33.2 (31.0-37.0) g/dL RDW 14.6 (11.5-15.5) % Plt Count 352 (150-450) k/uL MPV 6.7 Neutrophils % 79 % Lymphocytes % 15 % Monocytes % 4 % Eosinophils % 0 % Basophils % 0 % Neutrophils # 7.4 (1.3-7.7) k/uL Lymphocytes # 1.4 (1.0-4.8) k/uL Monocytes # 0.4 (0-1.0) k/uL Eosinophils # 0.0 (0-0.7) k/uL Basophils # 0.0 (0-0.2) k/uL Sodium 137 (137-145) mmol/L Potassium 4.2 (3.5-5.1) mmol/L Chloride 101 (98-107) mmol/L Carbon Dioxide 28 (22-30) mmol/L Anion Gap 8 mmol/L BUN 10 (7-17) mg/dL Creatinine 0.59 (0.52-1.04) mg/dL Est GFR (CKD-EPI)AfAm >90 (>60 ml/min/1.73 sqM) Est GFR (CKD-EPI)NonAf >90 (>60 ml/min/1.73 sqM) Glucose 133 H (74-99) mg/dL Calcium 9.8 (8.4-10.2) mg/dL Total Bilirubin 0.3 (0.2-1.3) mg/dL AST 26 (14-36) U/L ALT 17 (4-34) U/L Alkaline Phosphatase 67 (38-126) U/L Total Protein 7.0 (6.3-8.2) g/dL Albumin 4.0 (3.5-5.0) g/dL Amylase 111 H (30-110) U/L Lipase 42 (23-300) U/L Disposition Clinical Impression: Abdominal pain, Diarrhea Disposition: ADMITTED IP TO THIS HOSP Is patient prescribed a controlled substance at d/c from ED?: No Referrals: Tan Peters DO [Primary Care Provider] - 1-2 days
[2021-03-18] MEDS: metroNIDAZOLE 500 MG TAB PO SCH ×3 (11:41→22:11)
[2021-03-18] MEDS: PIPERACILLIN-TAZOBACTAM 3.375 GM in SODIUM CHLORIDE 0.9% 100 ML IVPB SCH ×2 (11:43→21:46)
[2021-03-18] MEDS: SODIUM CHLORIDE 0.9% 1,000 ML IV SCH ×2 (11:45→22:11)
[2021-03-18] MEDS: MORPHINE SULFATE 4 MG/ML SYRINGE IV PRN ×2 (17:55→22:14)
[2021-03-18 20:55] LABS: Glucose,Whole Blood 104 mg/dL (75-99)
[2021-03-18] MEDS ORDERED: DICLOFENAC SODIUM GEL 100 GM TUBE TOPICAL PRN (21:56)
[2021-03-18] MEDS ORDERED: ALBUTEROL NEBULIZED 2.5 MG/3 ML INHALATION PRN (21:56)
[2021-03-18] MEDS ORDERED: AMITRIPTYLINE HCL 50 MG TAB PO SCH (22:00)
[2021-03-18] MEDS: GABAPENTIN 100 MG CAP PO SCH (22:11)
--- NOTE | 2021-03-18 22:44 | P.HPIM ---
History of Present Illness H&P Date: 03/18/21 Chief Complaint: Diabetes History of presenting complaint: This is a 70-year-old patient, Dr. Peters , with chronic stable medical conditions include diabetes, hypertension, hyperlipidemia, memory impairment, osteoarthritis. Patient does live by herself. Yesterday evening patient started off with diarrhea which was initially formed then became very watery. Followed by nausea and vomiting. Also developed abdominal discomfort. No fever no chills. Finally presented to ER. She had eaten quiche from [employer]. She had a bowel movement in the ER a bit more formed. His a bit better this evening. Given IV fluids. Did tolerate some clear liquids Review of systems: GEN.: Tired EYES: None HEENT: None NECK: None RESPIRATORY: None CARDIOVASCULAR: None GASTROINTESTINAL: As above GENITOURINARY: None MUSCULOSKELETAL: Some joint pains LYMPHATICS: None HEMATOLOGICAL: None PSYCHIATRY: Forgetful NEUROLOGICAL: None Past medical history to include: Diabetes, hypertension, hyperlipidemia, cognitive impairment, osteoarthritis, stimulator the lumbar spine. Morphine pain pump being followed by Dr. Washburn Social history: Patient smoked a pack and a half a day for 39 years. Stopped about 15 years ago. No alcohol. Lives alone. Has revealed a walker Family history: Stroke, diabetes, bone cancer Physical examination: VITAL SIGNS: 100.6, 102, 30, 171/82, 97% on 2 L upon presentation GENERAL: BMI 33.7, laying in bed, slightly tired EYES: Pupils equal. Conjunctiva normal. HEENT: External appearance of nose and ears normal, oral cavity grossly normal. NECK: JVD not raised; masses not palpable. HEART: First and second heart sounds are normal; no edema. LUNGS: Respiratory rate normal; clear to auscultation. ABDOMEN: Soft, minimal tenderness no guarding rigidity, liver spleen not palpable, no masses palpable. PSYCH: knows The year, the month hospital and able to answer some simple questions NEUROLOGICAL: Cranial nerves grossly intact; no facial asymmetry, power and sensation grossly intact. MUSCULAR skeletal: Evidence of OA LYMPHATICS: No lymph nodes palpable in the axilla and neck INVESTIGATIONS, reviewed in the clinical context: White count 9.3 hemoglobin 12.8 platelets 352 sodium 137 potassium 4.2 creatinine 0.59 Amylase 111, lipase 42 Computed tomography scan of the abdomen and pelvis with contrast: No obvious negative findings Assessment and plan: -This is a patient had food from outside is started of his severe diarrhea some abdominal cramping nausea vomiting. Somewhat but getting better today. Had a low-grade fever on presentation. Most likely food poisoning. We will give a short course of ciprofloxacin and Flagyl. IV fluids. Liquid diet. -Diabetes mellitus type 2, on oral hypoglycemic Continue with metformin. Follow Accu-Cheks -Diabetic peripheral neuropathy On Neurontin. -Essential hypertension Toprol-XL, -Hyperlipidemia Crestor -COPD in a previous smoker-stable Use albuterol when necessary -Primary osteoarthritis Use Tylenol as needed -Mild Cognitive impairment -Chronic pain with chronic spine stimulator. Being managed by Patient was given IV fluids. Started on clear liquids. Advance diet. Start ciprofloxacin and Flagyl. DC IV Zosyn. Lovenox for DVT prophylaxis. Care was discussed with the patient. Questions answered. Past Medical History Past Medical History: CVA/TIA, Diabetes Mellitus, Hyperlipidemia, Hypertension, Memory Impairment, Musculoskeletal Disorder, Osteoarthritis (OA), Pneumonia Additional Past Medical History / Comment(s): BACK PAIN; TIA 2016, Pneumonia, possible heart palpitations-patient states was told about but doesn't remember experiencing this History of Any Multi-Drug Resistant Organisms: None Reported Past Surgical History: Bladder Surgery, Breast Surgery, Hysterectomy, Orthopedic Surgery Additional Past Surgical History / Comment(s): neurostimulator lower lumbar 06/2013 current. hammer toe 10/22,. breast reduction 2004. BLADDER SUSPENSION 2004, Morphine pain pump -2018. LT BREAST BX, BILAT CATARACT SX Past Anesthesia/Blood Transfusion Reactions: No Reported Reaction Past Psychological History: No Psychological Hx Reported Smoking Status: Former smoker Past Alcohol Use History: None Reported Additional Past Alcohol Use History / Comment(s): smoked 39 years 1 1/2ppd quit age 54 Past Drug Use History: None Reported - Past Family History Mother Family Medical History: CVA/TIA, Diabetes Mellitus Father Additional Family Medical History / Comment(s): bone cancer Brother(s) Family Medical History: Diabetes Mellitus Additional Family Medical History / Comment(s): bone cancer Sister(s) Family Medical History: Diabetes Mellitus Medications and Allergies Home Medications Medication Instructions Recorded Confirmed Type Amitriptyline HCl [Elavil] 150 mg PO HS 01/11/15 03/18/21 History Diclofenac Sodium [Voltaren Gel] 2 gram TOPICAL BID PRN 11/12/17 03/18/21 History Losartan/Hydrochlorothiazide 1 tab PO DAILY 11/12/17 03/18/21 History [Losartan-Hctz 100-12.5 mg Tab] Fluticasone Nasal [place] [Flonase 2 spray EA NOSTRIL HS 12/12/17 03/18/21 History Nasal [place]] Multivitamins, Thera [Multivitamin 1 tab PO DAILY 12/12/17 03/18/21 History (formulary)] Rosuvastatin Calcium [Crestor] 5 mg PO DAILY 01/17/18 03/18/21 History metFORMIN HCL [Glucophage] 500 mg PO DAILY 11/18/19 03/18/21 History Albuterol Nebulized [Ventolin 2.5 mg INHALATION RT-QID PRN 11/04/20 03/18/21 H istory Nebulized] Aspirin EC [Ecotrin Low Dose] 81 mg PO DAILY 11/04/20 03/18/21 History Calcium Carbonate [Calcium] 600 mg PO BID 11/04/20 03/18/21 History Metoprolol Succinate (ER) [Toprol 25 mg PO DAILY 11/04/20 03/18/21 History XL] Morphine Pain Pump 1 dose INTRATHECA DIRECTED 11/04/20 03/18/21 History Potassium Chloride ER [K-Dur 10] 20 meq PO BID 11/04/20 03/18/21 History Gabapentin [Neurontin] 100 mg PO PC-LUNCH 03/18/21 03/18/21 History Gabapentin [Neurontin] 200 mg PO BID 03/18/21 03/18/21 History Allergies Allergy/AdvReac Type Severity Reaction Status Date / Time dog dander Allergy ALLERGY Verified 03/18/21 10:56 SYMPTOMS mold Allergy ALLERGY Verified 03/18/21 10:56 SYMPTOMS dust mites Allergy ALLERGY Uncoded 03/18/21 10:56 SYMPTOMS Physical Exam Vitals: Vital Signs Temp Pulse Pulse Resp BP BP Pulse Ox 03/18/21 20:23 90 18 146/81 92 L 03/18/21 20:00 97.8 F 83 17 123/69 94 L 03/18/21 17:30 80 18 148/77 95 03/18/21 13:47 98.1 F 89 16 97 03/18/21 12:00 88 16 170/79 96 03/18/21 07:59 94 20 171/82 97 03/18/21 04:32 99 20 203/92 95 03/18/21 04:24 100.6 F H 102 H 30 H 207/98 93 L Intake and Output 03/18/21 03/18/21 03/18/21 06:59 14:59 22:59 Other: Weight 86.183 kg 86.183 kg Results CBC & Chem 7: 03/18/21 06:47 03/18/21 06:47 Labs: Abnormal Lab Results - Last 24 Hours (Table) 03/18/21 03/18/21 Range/Units 06:47 20:53 Glucose 133 H (74-99) mg/dL POC Glucose (mg/dL) 104 H (75-99) mg/dL Amylase 111 H (30-110) U/L Thrombosis Risk Factor Assmnt - Choose All That Apply Any of the Below Risk Factors Present?: Yes Each Factor Represents 1 point: Obesity (BMI >25) Other Risk Factors: Yes Each Risk Factor Represents 2 Points: Age 61-74 years Other congenital or acquired thrombophilia - If yes, enter type in comment: No Thrombosis Risk Factor Assessment Total Risk Factor Score: 3 Thrombosis Risk Factor Assessment Level: Moderate Risk
[2021-03-18] MEDS: CIPROFLOXACIN HCL 500 MG TAB PO SCH (22:56)
[2021-03-19 07:33] LABS: Glucose,Whole Blood 102 mg/dL (75-99)
[2021-03-19] MEDS: GABAPENTIN 100 MG CAP PO SCH (08:03)
[2021-03-19] MEDS: CIPROFLOXACIN HCL 500 MG TAB PO SCH (08:04)
[2021-03-19] MEDS: metroNIDAZOLE 500 MG TAB PO SCH (08:04)
[2021-03-19 08:05] VITALS: BP 108/63; RESP 16; TEMP 97.7
[2021-03-19 08:25] VITALS: PULSE 86
[2021-03-19] MEDS ORDERED: MULTIVITAMINS, THERA 1 EACH TAB PO SCH (09:00)
[2021-03-19] MEDS ORDERED: CALCIUM CARBONATE 500 MG CHEWABLE PO SCH (09:00)
[2021-03-19] MEDS ORDERED: metFORMIN 500 MG TAB PO SCH (09:00)
[2021-03-19] MEDS ORDERED: METOPROLOL SUCCINATE (ER) 25 MG TAB.ER.24H PO SCH (09:00)
[2021-03-19] MEDS ORDERED: ASPIRIN 81 MG PO SCH (09:00)
[2021-03-19] MEDS ORDERED: ATORVASTATIN 10 MG TAB PO SCH (09:00)
[2021-03-19] MEDS ORDERED: PANTOPRAZOLE 40 MG/10 ML VIAL IV SCH (09:00)
[2021-03-19] MEDS ORDERED: POTASSIUM CHLORIDE ER 20 MEQ TAB.ER PO SCH (09:00)
[2021-03-19] MEDS: SODIUM CHLORIDE 0.9% 1,000 ML IV SCH (10:47)
[2021-03-19] MEDS ORDERED: GABAPENTIN 100 MG CAP PO SCH (13:30)
[2021-03-19] MEDS ORDERED: FLUTICASONE 50MCG/SPRAY NASAL 16GM EA NOSTRIL SCH (21:00)
--- NOTE | 2021-03-21 17:09 | P.DS ---
Providers Date of admission: 03/18/21 10:35 Expected date of discharge: 03/19/21 Attending physician: Elias Gautam Primary care physician: Tan Peters [facility] Course: Chief Complaint: Diabetes History of presenting complaint: This is a 70-year-old patient, Dr. Peters , with chronic stable medical conditions include diabetes, hypertension, hyperlipidemia, memory impairment, osteoarthritis. Patient does live by herself. Yesterday evening patient started off with diarrhea which was initially formed then became very watery. Followed by nausea and vomiting. Also developed abdominal discomfort. No fever no chills. Finally presented to ER. She had eaten quiche from [employer]. She had a bowel movement in the ER a bit more formed. His a bit better this evening. Given IV fluids. Did tolerate some clear liquids Admitted with food poisoning. Initially put on IV Zosyn. Changed to ciprofloxacin and Flagyl. March 21: Doing well. Tolerated a full liquid for breakfast and soft bland for lunch. No abdominal pain. No diarrhea. Care was discussed with the patient. Questions answered. Complete a 3 day course of Cipro and Flagyl. Past medical history to include: Diabetes, hypertension, hyperlipidemia, cognitive impairment, osteoarthritis, stimulator the lumbar spine. Morphine pain pump being followed by Dr. Washburn Social history: Patient smoked a pack and a half a day for 39 years. Stopped about 15 years ago. No alcohol. Lives alone. Has revealed a walker Family history: Stroke, diabetes, bone cancer Physical examination: VITAL SIGNS: 97.7, 77, 16, 108/63, 93% on 2 L GENERAL: BMI 33.7, laying in bed, comfortable EYES: Pupils equal. Conjunctiva normal. NECK: JVD not raised; masses not palpable. HEART: First and second heart sounds are normal; no edema. LUNGS: Respiratory rate normal; clear to auscultation. ABDOMEN: Soft, minimal tenderness no guarding rigidity, liver spleen not palpable, no masses palpable. PSYCH: knows The year, the month hospital and able to answer some simple questions MUSCULAR skeletal: Evidence of OA INVESTIGATIONS, reviewed in the clinical context: White count 9.3 hemoglobin 12.8 platelets 352 sodium 137 potassium 4.2 creatinine 0.59 Amylase 111, lipase 42 Computed tomography scan of the abdomen and pelvis with contrast: No obvious negative findings Assessment and plan: -Food poisoning Responded well to IV fluids. Complete 3 day course of ciprofloxacin and Flagyl. Soft bland diet. -Diabetes mellitus type 2, on oral hypoglycemic Continue with metformin. -Diabetic peripheral neuropathy On Neurontin. -Essential hypertension Toprol-XL, -Hyperlipidemia Crestor -COPD in a previous smoker-stable Use albuterol when necessary -Primary osteoarthritis Use Tylenol as needed -Mild Cognitive impairment -Chronic pain with chronic spine stimulator. Being managed by Disposition: Home Plan - Discharge Summary Discharge Rx Participant: No New Discharge Prescriptions: New Ciprofloxacin HCl [Cipro] 500 mg PO BID #4 tab metroNIDAZOLE [Flagyl] 500 mg PO TID #6 tab Continue Amitriptyline HCl [Elavil] 150 mg PO HS Losartan/Hydrochlorothiazide [Losartan-Hctz 100-12.5 mg Tab] 1 tab PO DAILY Diclofenac Sodium [Voltaren Gel] 2 gram TOPICAL BID PRN PRN Reason: Pain Multivitamins, Thera [Multivitamin (formulary)] 1 tab PO DAILY Fluticasone Nasal [place] [Flonase Nasal [place]] 2 spray EA NOSTRIL HS Rosuvastatin Calcium [Crestor] 5 mg PO DAILY metFORMIN HCL [Glucophage] 500 mg PO DAILY Calcium Carbonate [Calcium] 600 mg PO BID Morphine Pain Pump 1 dose INTRATHECA DIRECTED Gabapentin [Neurontin] 100 mg PO PC-LUNCH Potassium Chloride ER [K-Dur 10] 20 meq PO BID Metoprolol Succinate (ER) [Toprol XL] 25 mg PO DAILY Aspirin EC [Ecotrin Low Dose] 81 mg PO DAILY Albuterol Nebulized [Ventolin Nebulized] 2.5 mg INHALATION RT-QID PRN PRN Reason: Shortness Of Breath Gabapentin [Neurontin] 200 mg PO BID Discharge Medication List Amitriptyline HCl [Elavil] 150 mg PO HS 01/11/15 [History] Diclofenac Sodium [Voltaren Gel] 2 gram TOPICAL BID PRN 11/12/17 [History] Losartan/Hydrochlorothiazide [Losartan-Hctz 100-12.5 mg Tab] 1 tab PO DAILY 11/12/17 [History] Fluticasone Nasal [place] [Flonase Nasal [place]] 2 spray EA NOSTRIL HS 12/12/17 [History] Multivitamins, Thera [Multivitamin (formulary)] 1 tab PO DAILY 12/12/17 [History] Rosuvastatin Calcium [Crestor] 5 mg PO DAILY 01/17/18 [History] metFORMIN HCL [Glucophage] 500 mg PO DAILY 11/18/19 [History] Albuterol Nebulized [Ventolin Nebulized] 2.5 mg INHALATION RT-QID PRN 11/04/20 [History] Aspirin EC [Ecotrin Low Dose] 81 mg PO DAILY 11/04/20 [History] Calcium Carbonate [Calcium] 600 mg PO BID 11/04/20 [History] Metoprolol Succinate (ER) [Toprol XL] 25 mg PO DAILY 11/04/20 [History] Morphine Pain Pump 1 dose INTRATHECA DIRECTED 11/04/20 [History] Potassium Chloride ER [K-Dur 10] 20 meq PO BID 11/04/20 [History] Gabapentin [Neurontin] 100 mg PO PC-LUNCH 03/18/21 [History] Gabapentin [Neurontin] 200 mg PO BID 03/18/21 [History] Ciprofloxacin HCl [Cipro] 500 mg PO BID #4 tab 03/19/21 [Rx] metroNIDAZOLE [Flagyl] 500 mg PO TID #6 tab 03/19/21 [Rx] Follow up Appointment(s)/Referral(s): Tan Peters DO [Primary Care Provider] - 1-2 days Patient Instructions/Handouts: Acute Nausea and Vomiting (DC) Activity/Diet/Wound Care/Special Instructions: soft bland diet hold losartan for 2 days daily am BP check Discharge Disposition: HOME SELF-CARE
== END 2021-03-19 12:10 | disposition home or self-care (01) ==
LOC: EC 04:23 → 1SOBS 10:35 → 6NMEDSUR 12:25
PROVIDERS: ADMIT Hospitalist; ATTEND Hospitalist
DX: A05.9 Bacterial foodborne intoxication, unspecified (principal); E11.42 Type 2 diabetes mellitus with diabetic polyneuropathy; I10 Essential (primary) hypertension; E78.5 Hyperlipidemia, unspecified; J44.9 Chronic obstructive pulmonary disease, unspecified; M19.91 Primary osteoarthritis, unspecified site; G89.29 Other chronic pain; M54.9 Dorsalgia, unspecified; G31.84 Mild cognitive impairment of uncertain or unknown etiology; E66.9 Obesity, unspecified; Z68.33 Body mass index [BMI] 33.0-33.9, adult; Z79.82 Long term (current) use of aspirin; Z79.84 Long term (current) use of oral hypoglycemic drugs; Z79.899 Other long term (current) drug therapy; Z91.048 Other nonmedicinal substance allergy status; Z86.73 Personal history of transient ischemic attack (TIA), and cerebral infarction without residual deficits; Z98.42 Cataract extraction status, left eye; Z98.41 Cataract extraction status, right eye; Z87.01 Personal history of pneumonia (recurrent); Z90.710 Acquired absence of both cervix and uterus; Z97.8 Presence of other specified devices; Z98.890 Other specified postprocedural states; Z87.891 Personal history of nicotine dependence; Z83.3 Family history of diabetes mellitus; Z82.3 Family history of stroke; Z80.8 Family history of malignant neoplasm of other organs or systems
CPT/HCPCS: 96361 ×3; 96366 ×2; 96375 ×2; 96365; 99285; 36415; 94640; 80053; 82150; 83605; 83690; 85025; 87040; 74177; G0378 ×3; J2543; J2270; J2405; C9113; Q9967

== ENCOUNTER → 2021-06-24 | Outpatient (CLI) | payer MEDICARE, OTHER ==
--- NOTE | 2021-06-25 08:47 | MM ---
Reason for exam: additional evaluation requested from prior study. Last mammogram was performed 1 year and 1 month ago. History: Patient is postmenopausal and has history of high-risk lesion on a previous biopsy at age 69. High risk MG pre op needle loc LT of the left breast, November 19, 2019. High risk US biopsy breast VAD LT of the left breast, August 14, 2019. Benign MG pre op needle loc RT of the right breast, January 23, 2018. High risk US biopsy breast VAD RT of the right breast, December 18, 2017. Benign MG stereo VAD BX LT of the left breast, December 15, 2015. Benign US breast aspiration single LT of the left breast, December 15, 2015. Benign US biopsy breast VAD LT of the left breast, December 15, 2015. Benign US biopsy breast add'l VAD LT of the left breast, December 15, 2015. Reductions of both breasts, January 2005. Took hormonal contraceptives for 8 years beginning at age 16. Took estrogen for 3 years beginning at age 40. Physical Findings: Nurse did not find any significant physical abnormalities on exam. MG 3D Diag Mammo W/Cad SIRENA Bilateral CC and MLO view(s) were taken. Prior study comparison: May 25, 2020, bilateral MG 3d diag mammo w/cad SIRENA. May 25, 2020, left breast MG 3d diag mammo w/cad LT. The breast tissue is heterogeneously dense. This may lower the sensitivity of mammography. Previous mammotome biopsy in the left breast x 2. There is chronic nodularity bilaterally. Bilateral excisional changes with post surgical scars. No significant new findings when compared with previous films. These results were verbally communicated with the patient and result sheet given to the patient on 06/24/21. ASSESSMENT: Benign, BI-RAD 2 RECOMMENDATION: Follow-up diagnostic mammogram of both breasts in 1 year.
== END | disposition home or self-care (01) ==
LOC: RADMAMWWP 15:03
PROVIDERS: ATTEND Surgery
DX: R92.2 Inconclusive mammogram (principal); Z78.0 Asymptomatic menopausal state
CPT/HCPCS: 77066; G0279; 77062

== ENCOUNTER → 2021-07-29 | Outpatient (CLI) | payer MEDICARE, OTHER ==
[2021-07-29 13:45] VITALS: BP 149/85; PULSE 79; RESP 17; TEMP 97.8
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
== END ==
LOC: WWCWWP 12:59
PROVIDERS: ATTEND Surgery
DX: N60.11 Diffuse cystic mastopathy of right breast (principal); N60.12 Diffuse cystic mastopathy of left breast; E11.9 Type 2 diabetes mellitus without complications; Z87.891 Personal history of nicotine dependence

== ENCOUNTER 2022-04-10 07:15 | Observation (INO) | payer MEDICARE, OTHER ==
[2022-04-10] MEDS ORDERED: SODIUM CHLORIDE 0.9% 1,000 ML IV ONE (07:19)
[2022-04-10] MEDS ORDERED: ONDANSETRON 4 MG/2 ML VIAL IVP STA (07:20)
[2022-04-10] MEDS ORDERED: MORPHINE SULFATE 2 MG/ML SYRINGE IVP STA (07:20)
--- NOTE | 2022-04-10 07:37 | ED ---
General Adult HPI - General Stated complaint: Maria Guadalupe Time Seen by Provider: 04/10/22 07:18 Source: patient, EMS, RN notes reviewed, old records reviewed Mode of arrival: EMS Limitations: no limitations - History of Present Illness Initial comments: 71-year-old female presenting with nausea vomiting and diarrhea. Patient states that around midnight she developed vomiting followed by diarrhea. She's had greater than 10 episodes of both vomiting and diarrhea. She states she did eat some shrimp but is uncertain if this was related. No fever. She has some crampy abdominal pain. No severe abdominal pain, no chest pain. - Related Data Home Medications Medication Instructions Recorded Confirmed Amitriptyline HCl [Elavil] 150 mg PO HS 01/11/15 07/29/21 Diclofenac Sodium [Voltaren Gel] 2 gram TOPICAL BID PRN 11/12/17 07/29/21 Losartan/Hydrochlorothiazide 1 tab PO DAILY 11/12/17 07/29/21 [Losartan-Hctz 100-12.5 mg Tab] Fluticasone Nasal [place] [Flonase 2 spray EA NOSTRIL HS 12/12/17 07/29/21 Nasal [place]] Multivitamins, Thera [Multivitamin 1 tab PO DAILY 12/12/17 07/29/21 (formulary)] Rosuvastatin Calcium [Crestor] 5 mg PO DAILY 01/17/18 07/29/21 metFORMIN HCL [Glucophage] 500 mg PO DAILY 11/18/19 07/29/21 Albuterol Nebulized [Ventolin 2.5 mg INHALATION RT-QID PRN 11/04/20 07/29/21 Nebulized] Aspirin EC [Ecotrin Low Dose] 81 mg PO DAILY 11/04/20 07/29/21 Calcium Carbonate [Calcium] 600 mg PO BID 11/04/20 07/29/21 Metoprolol Succinate (ER) [Toprol 25 mg PO DAILY 11/04/20 07/29/21 XL] Morphine Pain Pump 1 dose INTRATHECA DIRECTED 11/04/20 07/29/21 Potassium Chloride ER [K-Dur 10] 20 meq PO BID 11/04/20 07/29/21 Gabapentin [Neurontin] 100 mg PO PC-LUNCH 03/18/21 07/29/21 Gabapentin [Neurontin] 200 mg PO BID 09/09/21 01/20/22 Allergies Allergy/AdvReac Type Severity Reaction Status Date / Time dog dander Allergy ALLERGY Verified 04/10/22 07:25 SYMPTOMS mold Allergy ALLERGY Verified 04/10/22 07:25 SYMPTOMS dust mites Allergy ALLERGY Uncoded 04/10/22 07:25 SYMPTOMS Review of Systems ROS Statement: Those systems with pertinent positive or pertinent negative responses have been documented in the HPI. ROS Other: All systems not noted in ROS Statement are negative. Past Medical History Past Medical History: CVA/TIA, Diabetes Mellitus, Hyperlipidemia, Hypertension, Memory Impairment, Musculoskeletal Disorder, Osteoarthritis (OA), Pneumonia Additional Past Medical History / Comment(s): BACK PAIN; TIA 2016, Pneumonia, possible heart palpitations-patient states was told about but doesn't remember experiencing this History of Any Multi-Drug Resistant Organisms: None Reported Past Surgical History: Bladder Surgery, Breast Surgery, Hysterectomy, Orthopedic Surgery Additional Past Surgical History / Comment(s): neurostimulator lower lumbar 06/2013 current. hammer toe 10/22,. breast reduction 2004. BLADDER SUSPENSION 2004, Morphine pain pump -2018. LT BREAST BX, BILAT CATARACT SX Past Anesthesia/Blood Transfusion Reactions: No Reported Reaction Past Psychological History: No Psychological Hx Reported Smoking Status: Former smoker Past Alcohol Use History: None Reported Past Drug Use History: None Reported - Past Family History Mother Family Medical History: CVA/TIA, Diabetes Mellitus Father Additional Family Medical History / Comment(s): bone cancer Brother(s) Family Medical History: Diabetes Mellitus Additional Family Medical History / Comment(s): bone cancer Sister(s) Family Medical History: Diabetes Mellitus General Exam Limitations: no limitations General appearance: alert, in no apparent distress Head exam: Present: atraumatic, normocephalic Eye exam: Present: normal appearance, PERRL ENT exam: Present: mucous membranes dry Neck exam: Present: normal inspection Respiratory exam: Present: normal lung sounds bilaterally. Absent: respiratory distress, wheezes Cardiovascular Exam: Present: regular rate, normal rhythm GI/Abdominal exam: Present: soft. Absent: distended, tenderness, guarding, rebound Extremities exam: Present: normal inspection, normal capillary refill. Absent: pedal edema Neurological exam: Present: alert, oriented X3, CN II-XII intact. Absent: motor sensory deficit Psychiatric exam: Present: normal affect, normal mood Skin exam: Present: warm, dry, intact. Absent: cyanosis, diaphoretic Course Vital Signs 04/10/22 04/10/22 04/10/22 07:17 08:24 09:58 Temperature 98.6 F Pulse Rate 104 H 98 88 Respiratory 18 18 18 Rate Blood Pressure 208/89 195/83 180/117 O2 Sat by Pulse 98 98 98 Oximetry Medical Decision Making - Medical Decision Making 71-year-old female presenting for evaluation of nausea vomiting diarrhea. Patient did have some abdominal discomfort and no focal tenderness. Initial workup revealed normal CBC, mild hypokalemia which is replaced. Lactic acid 2.8. Urinalysis pending. She had significant vomiting throughout her stay in the emergency department as well as multiple episodes of diarrhea. I did perform CT imaging which was negative for any acute findings. I feel the patient will benefit from IV hydration and antiemetics. Case discussed with Dr. Gautam who will admit. - Lab Data Result diagrams: 04/10/22 08:09 04/10/22 08:09 Lab Results 04/10/22 04/10/22 04/10/22 Range/Units 08:09 08:09 08:09 WBC 9.1 (3.8-10.6) k/uL RBC 4.18 (3.80-5.40) m/uL Hgb 12.7 (11.4-16.0) gm/dL Hct 38.1 (34.0-46.0) % MCV 91.1 (80.0-100.0) fL MCH 30.3 (25.0-35.0) pg MCHC 33.3 (31.0-37.0) g/dL RDW 13.4 (11.5-15.5) % Plt Count 335 (150-450) k/uL MPV 7.2 Neutrophils % 75 % Lymphocytes % 18 % Monocytes % 5 % Eosinophils % 1 % Basophils % 0 % Neutrophils # 6.8 (1.3-7.7) k/uL Lymphocytes # 1.6 (1.0-4.8) k/uL Monocytes # 0.4 (0-1.0) k/uL Eosinophils # 0.1 (0-0.7) k/uL Basophils # 0.0 (0-0.2) k/uL Sodium 140 (137-145) mmol/L Potassium 3.2 L (3.5-5.1) mmol/L Chloride 99 (98-107) mmol/L Carbon Dioxide 27 (22-30) mmol/L Anion Gap 14 mmol/L BUN 15 (7-17) mg/dL Creatinine 0.66 (0.52-1.04) mg/dL Est GFR (CKD-EPI)AfAm >90 (>60 ml/min/1.73 sqM) Est GFR (CKD-EPI)NonAf 89 (>60 ml/min/1.73 sqM) Glucose 135 H (74-99) mg/dL Plasma Lactic Acid Erik 2.8 H* (0.7-2.0) mmol/L Calcium 9.3 (8.4-10.2) mg/dL Magnesium 1.6 (1.6-2.3) mg/dL Total Bilirubin 0.4 (0.2-1.3) mg/dL AST 24 (14-36) U/L ALT 18 (4-34) U/L Alkaline Phosphatase 86 (38-126) U/L Total Protein 6.8 (6.3-8.2) g/dL Albumin 4.2 (3.5-5.0) g/dL Disposition Clinical Impression: Abdominal pain, Dehydration, Intractable nausea and vomiting Disposition: ADMITTED IP TO THIS [facility] Condition: Stable Is patient prescribed a controlled substance at d/c from ED?: No Referrals: Tan Peters DO [Primary Care Provider] - 1-2 days Time of Disposition: 10:27
[2022-04-10] MEDS ORDERED: METOCLOPRAMIDE 5 MG/ML 2 ML VIAL IVP STA (08:17)
[2022-04-10] MEDS ORDERED: MORPHINE SULFATE 4 MG/ML SYRINGE IVP STA (08:18)
[2022-04-10 08:19] LABS: Basophils % (A) 0 %; Eosinophils # (A) 0.1 k/uL (0-0.7); Eosinophils % (A) 1 %; HCT 38.1 % (34.0-46.0); HGB 12.7 gm/dL (11.4-16.0); Lymphocytes # (A) 1.6 k/uL (1.0-4.8); Lymphocytes % (A) 18 %; MCH 30.3 pg (25.0-35.0); MCHC 33.3 g/dL (31.0-37.0); MCV 91.1 fL (80.0-100.0); Mean Platelet Volume 7.2; Monocytes # (A) 0.4 k/uL (0-1.0); Monocytes % (A) 5 %; Neutrophils # (A) 6.8 k/uL (1.3-7.7); Neutrophils % (A) 75 %; Platelet Count 335 k/uL (150-450); RBC 4.18 m/uL (3.80-5.40); RDW 13.4 % (11.5-15.5); WBC 9.1 k/uL (3.8-10.6)
[2022-04-10 08:35] LABS: ALT 18 U/L (4-34); AST 24 U/L (14-36); African American GFR (CKD) >90 (>60 ml/min/1.73 sqM); Albumin 4.2 g/dL (3.5-5.0); Alkaline Phosphatase 86 U/L (38-126); Anion Gap 14 mmol/L; Blood Urea Nitrogen 15 mg/dL (7-17); Calcium 9.3 mg/dL (8.4-10.2); Carbon Dioxide 27 mmol/L (22-30); Chloride 99 mmol/L (98-107); Glucose 135 mg/dL (74-99); Magnesium 1.6 mg/dL (1.6-2.3); Non-African American GFR(CKD) 89 (>60 ml/min/1.73 sqM); Potassium 3.2 mmol/L (3.5-5.1); Sodium 140 mmol/L (137-145); Total Bilirubin 0.4 mg/dL (0.2-1.3); Total Protein 6.8 g/dL (6.3-8.2)
--- NOTE | 2022-04-10 10:04 | CT ---
EXAMINATION TYPE: CT abdomen pelvis wo con CT DLP: 690.7 mGycm, Automated exposure control for dose reduction was used. DATE OF EXAM: 04/10/2022 9:48 AM COMPARISON: CT abdomen pelvis most recent from 03/18/2021 CLINICAL INDICATION:Female, 71 years old with history of ab pain/vomiting; Abdominal pain and vomitin g TECHNIQUE: Axial CT of the abdomen and pelvis. Sagittal and coronal reformats were created on a [employer] workstation. Contrast used: None Oral contrast used: without Oral Contrast FINDINGS: LOWER CHEST: The heart is mildly enlarged for size. Right breast clips are present. ABDOMEN LIVER: Unremarkable GALLBLADDER AND BILE DUCTS: Unremarkable. PANCREAS: Lipomatous atrophy changes to the pancreatic head. SPLEEN: Unremarkable. ADRENAL GLANDS: Unremarkable. KIDNEYS AND URETERS: No evidence of hydronephrosis or renal calculus. The ureters are unremarkable. PELVIS BLADDER: Unremarkable REPRODUCTIVE: The uterus is surgically absent. ABDOMEN & PELVIS STOMACH AND BOWEL: No evidence of bowel obstruction. Appendix is normal. PERITONEUM: No evidence of pneumoperitoneum or free fluid. VASCULATURE: No evidence of aortic aneurysm. Atherosclerosis of the arterial vasculature. MUSCULOSKELETAL: No acute osseous abnormalities, multilevel disc degeneration changes throughout the spine. Grade 1 anterolisthesis of L4 and L5. Spinal stimulator leads in stable position. LYMPH NODES: No gross evidence for lymphadenopathy. SOFT TISSUE/ABDOMINAL WALL: Battery pack seen in the left lower abdomen and right posterior buttock. Fat-containing umbilical hernia. IMPRESSION: 1. No evidence for acute intra-abdominal process. Stable exam from prior 03/18/2021 2. Small hiatal hernia. 3. Small fat-containing umbilical hernia. 4. Grade 1 anterior listhesis of L4 and L5.
[2022-04-10] MEDS ORDERED: SODIUM CHLORIDE 0.9% 500 ML 500 ML IV ONE (10:19)
[2022-04-10] MEDS ORDERED: ONDANSETRON 4 MG/2 ML VIAL IVP PRN (10:23)
[2022-04-10] MEDS ORDERED: NALOXONE 0.4 MG/ML 1 ML VIAL IV PRN (10:23)
[2022-04-10] MEDS ORDERED: SODIUM CHLORIDE 0.9% 1,000 ML IV SCH (10:30)
[2022-04-10 10:33] LABS: Appearance,Urine Clear (Clear); Bilirubin,Urine Negative (Negative); Blood,Urine Negative (Negative); Color,Urine Light Yellow; Glucose,Urine (UA) Negative (Negative); Ketones,Urine 1+ (Negative); Leukocyte Esterase,Urine Negative (Negative); Nitrite,Urine Negative (Negative); Protein,Urine Trace (Negative); Specific Gravity,Urine 1.016 (1.001-1.035); Urobilinogen,Urine <2.0 mg/dL (<2.0)
[2022-04-10] MEDS: POTASSIUM CHLORIDE 10 MEQ in WATER FOR INJECTION 1 100ML.BAG IVPB SCH ×3 (10:48→17:30)
[2022-04-10 10:50] LABS: Amphetamine Screen,Urine Not Detected (NotDetected); Benzodiazepines Screen,Urine Not Detected (NotDetected); Cocaine Screen,Urine Not Detected (NotDetected); Opiate Screen,Urine Detected (NotDetected); Phencyclidine Screen,Urine Not Detected (NotDetected); Tricyclic Antidepressant,Urine Detected (NotDetected); Urn Cannabinoid Scrn Not Detected (NotDetected)
[2022-04-10 10:51] LABS: Barbiturate Screen,Urine Not Detected (NotDetected); Methadone Screen, Urine Not Detected (NotDetected); Oxycodone Screen, Urine Not Detected (NotDetected)
[2022-04-10] MEDS ORDERED: metroNIDAZOLE-NS PMX 500 MG in SALINE 1 100ML.BAG IVPB SCH (12:00)
[2022-04-10] MEDS ORDERED: METOCLOPRAMIDE 5 MG/ML 2 ML VIAL IVP SCH (12:00)
[2022-04-10] MEDS: metroNIDAZOLE 500 MG TAB PO SCH ×3 (13:20→23:25)
[2022-04-10] MEDS ORDERED: DICLOFENAC SODIUM GEL 100 GM TUBE TOPICAL PRN (13:22)
[2022-04-10] MEDS ORDERED: BACLOFEN 10 MG TAB PO PRN (13:22)
[2022-04-10] MEDS ORDERED: BUDESONIDE 1 MG/2 ML NEBU INHALATION PRN (13:22)
--- NOTE | 2022-04-10 13:30 | P.HPIM ---
History of Present Illness H&P Date: 04/10/22 Chief Complaint: Nausea vomiting diarrhea History of presenting complaint: This is a 71-year-old patient, Dr. Peters , with chronic stable medical conditions include diabetes, hypertension, hyperlipidemia, memory impairment, osteoarthritis. Patient does live by herself. Patient is in the hospital about 3 weeks ago what was felt to be food poisoning treated with ciprofloxacin and Flagyl responded well discharged home. Last night patient started having several bouts of diarrhea. Initially mushy than watery. Lower abdominal discomfort. Nausea vomiting. Weight diagrammed on. Unable to keep anything down. Vomiting in the ER also. Patient has a morphine pain pump. Patient yesterday had leftover shrimps from the day before. Review of systems: GEN.: Tired EYES: None HEENT: None NECK: None RESPIRATORY: None CARDIOVASCULAR: None GASTROINTESTINAL: As above GENITOURINARY: None MUSCULOSKELETAL: Some joint pains LYMPHATICS: None HEMATOLOGICAL: None PSYCHIATRY: Forgetful NEUROLOGICAL: None Past medical history to include: Diabetes, hypertension, hyperlipidemia, cognitive impairment, osteoarthritis, stimulator the lumbar spine. Morphine pain pump being followed by Dr. Washburn Social history: Patient smoked a pack and a half a day for 39 years. Stopped about 15 years ago. No alcohol. Lives alone. Uses walker Family history: Stroke, diabetes, bone cancer Physical examination: VITAL SIGNS: 98.6, 104, 18, 28/89, 98% room air GENERAL: BMI 32.6, reclining in bed, awake, uncomfortable EYES: Pupils equal. Conjunctiva normal. HEENT: External appearance of nose and ears normal, oral cavity grossly normal. NECK: JVD not raised; masses not palpable. HEART: First and second heart sounds are normal; no edema. LUNGS: Respiratory rate normal; clear to auscultation. ABDOMEN: Soft, minimal tenderness no guarding rigidity, liver spleen not palpabl e, no masses palpable. Pain pump PSYCH: AO 3, more affect anxious NEUROLOGICAL: Cranial nerves grossly intact; no facial asymmetry, power and sensation grossly intact. MUSCULAR skeletal: Evidence of OA LYMPHATICS: No lymph nodes palpable in the axilla and neck INVESTIGATIONS, reviewed in the clinical context: WBC 9.1 hemoglobin 12.7 platelets 335 sodium 140 potassium 3.2 creatinine 0.66 Lactic acid 2.8 UA ketones 1+ Urine drug screen positive for opiates, tricyclic antidepressants Computed tomography scan abdomen and pelvis: Unremarkable Assessment and plan: -Patient started having diarrhea abdominal pain nausea vomiting since last night. Had shrimp that was left over from the previous day.- refrigerated. Possible food poisoning. IV fluids. Ciprofloxacin and Flagyl. Reglan. Full liquids -Diabetes mellitus type 2, on oral hypoglycemic Hold metformin. Accu-Cheks with sliding scale -Diabetic peripheral neuropathy On Neurontin. -Essential hypertension, uncontrolled from not able to take her oral medications and from anxiety Catapres patch 0.2 -Hyperlipidemia Crestor -COPD in a previous smoker-stable Use albuterol when necessary -Primary osteoarthritis Use Tylenol as needed -Mild Cognitive impairment -Chronic pain with chronic spine stimulator. Being managed by IV fluids. Ciprofloxacin Flagyl. Reglan. Liquid diet. Hold metformin. Follow Accu-Cheks. Discussed with patient. Past Medical History Past Medical History: CVA/TIA, Diabetes Mellitus, Hyperlipidemia, Hypertension, Memory Impairment, Musculoskeletal Disorder, Osteoarthritis (OA), Pneumonia Additional Past Medical History / Comment(s): BACK PAIN; TIA 2016, Pneumonia, possible heart palpitations-patient states was told about but doesn't remember experiencing this History of Any Multi-Drug Resistant Organisms: None Reported Past Surgical History: Bladder Surgery, Breast Surgery, Hysterectomy, Orthopedic Surgery Additional Past Surgical History / Comment(s): neurostimulator lower lumbar 06/2013 current. hammer toe 10/22,. breast reduction 2004. BLADDER SUSPENSION 2004, Morphine pain pump -2018. LT BREAST BX, BILAT CATARACT SX Past Anesthesia/Blood Transfusion Reactions: No Reported Reaction Past Psychological History: No Psychological Hx Reported Smoking Status: Former smoker Past Alcohol Use History: None Reported Past Drug Use History: None Reported - Past Family History Mother Family Medical History: CVA/TIA, Diabetes Mellitus Father Additional Family Medical History / Comment(s): bone cancer Brother(s) Family Medical History: Diabetes Mellitus Additional Family Medical History / Comment(s): bone cancer Sister(s) Family Medical History: Diabetes Mellitus Medications and Allergies Home Medications Medication Instructions Recorded Confirmed Type Amitriptyline HCl [Elavil] 150 mg PO HS 01/11/15 04/10/22 History Diclofenac Sodium [Voltaren Gel] 1 applic TOPICAL DAILY PRN 11/12/17 04/10/22 History Losartan/Hydrochlorothiazide 1 tab PO DAILY 11/12/17 04/10/22 History [Losartan-Hctz 100-12.5 mg Tab] Fluticasone Nasal [place] [Flonase 1 spray EA NOSTRIL DAILY PRN 12/12/17 04/10/22 History Nasal [place]] Rosuvastatin Calcium [Crestor] 5 mg PO DAILY 01/17/18 04/10/22 History metFORMIN HCL [Glucophage] 500 mg PO BID 11/18/19 04/10/22 History Metoprolol Succinate (ER) [Toprol 25 mg PO DAILY 11/04/20 04/10/22 History XL] Morphine Pain Pump 1 dose INTRATHECA DIRECTED 11/04/20 04/10/22 History Potassium Chloride ER [K-Dur 10] 20 meq PO BID 11/04/20 04/10/22 History Baclofen [Lioresal] 10 mg PO DAILY PRN 04/10/22 04/10/22 History Budesonide 1 mg INHALATION RT-BID PRN 04/10/22 04/10/22 History Etodolac 400 mg PO BID 04/10/22 04/10/22 History Furosemide [Lasix] 20 mg PO DAILY 04/10/22 04/10/22 History Gabapentin 300 mg PO BID 04/10/22 04/10/22 History HYDROcodone/APAP 5-325MG [[place] 1 tab PO DAILY PRN 04/10/22 04/10/22 History 5-325] Allergies Allergy/AdvReac Type Severity Reaction Status Date / Time dog dander Allergy ALLERGY Verified 04/10/22 11:53 SYMPTOMS mold Allergy ALLERGY Verified 04/10/22 11:53 SYMPTOMS dust mites Allergy ALLERGY Uncoded 04/10/22 07:25 SYMPTOMS Physical Exam Vitals: Vital Signs Temp Pulse Resp BP Pulse Ox 04/10/22 12:20 92 18 194/121 97 04/10/22 09:58 88 18 180/117 98 04/10/22 08:24 98 18 195/83 98 04/10/22 07:17 98.6 F 104 H 18 208/89 98 Intake and Output 04/09/22 04/10/22 04/10/22 22:59 06:59 14:59 Other: Weight 83.461 kg Results CBC & Chem 7: 04/10/22 08:09 04/10/22 08:09 Labs: Abnormal Lab Results - Last 24 Hours (Table) 04/10/22 04/10/22 04/10/22 Range/Units 08:09 08:09 10:18 Potassium 3.2 L (3.5-5.1) mmol/L Glucose 135 H (74-99) mg/dL Plasma Lactic Acid Erik 2.8 H* (0.7-2.0) mmol/L Urine Protein Trace H (Negative) Urine Ketones 1+ H (Negative) Urine Opiates Screen (NotDetected) U Tricyclic Antidepress (NotDetected) 04/10/22 04/10/22 Range/Units 10:18 11:10 Potassium (3.5-5.1) mmol/L Glucose (74-99) mg/dL Plasma Lactic Acid Erik 3.2 H* (0.7-2.0) mmol/L Urine Protein (Negative) Urine Ketones (Negative) Urine Opiates Screen Detected H (NotDetected) U Tricyclic Antidepress Detected H (NotDetected)
[2022-04-10] MEDS ORDERED: DEXTROSE 50% SYRINGE 50 ML IVP PRN ×2 (13:31)
[2022-04-10] MEDS: METOPROLOL SUCCINATE (ER) 25 MG TAB.ER.24H PO SCH (14:23)
[2022-04-10] MEDS: cloNIDine 0.2 MG/24HR PATCH TRANSDERM SCH ×2 (14:23→14:29)
[2022-04-10] MEDS: ENOXAPARIN 40 MG/0.4 ML SYRINGE SQ SCH (14:23)
[2022-04-10] MEDS: LOSARTAN 50 MG TAB PO SCH (14:23)
[2022-04-10] MEDS: hydroCHLOROthiazide 12.5 MG CAP PO SCH (14:55)
[2022-04-10] MEDS: LACTATED RINGERS 1,000 ML IV SCH ×2 (15:03→23:27)
[2022-04-10 17:43] LABS: Glucose,Whole Blood 170 mg/dL (70-110)
[2022-04-10] MEDS: INSULIN ASPART (NovoLOG) 100 UNIT/ML VIAL SQ SCH (17:56)
[2022-04-10] MEDS: MORPHINE MISCELLANE SCH (18:04)
[2022-04-10] MEDS: METOCLOPRAMIDE 5 MG/ML 2 ML VIAL IVP SCH (18:04)
[2022-04-10] MEDS ORDERED: cloNIDine 0.3 MG/24HR PATCH TRANSDERM SCH (20:00)
[2022-04-10] MEDS: HYDROcodone/APAP 5-325MG 1 EACH TAB PO PRN (22:39)
[2022-04-10] MEDS: GABAPENTIN 300 MG CAP PO SCH (22:40)
[2022-04-10] MEDS: AMITRIPTYLINE HCL 50 MG TAB PO SCH (23:18)
[2022-04-10] MEDS: CIPROFLOXACIN HCL 500 MG TAB PO SCH (23:19)
[2022-04-11 02:26] LABS: African American GFR (CKD) >90 (>60 ml/min/1.73 sqM); Anion Gap 18 mmol/L; Blood Urea Nitrogen 8 mg/dL (7-17); Calcium 10.1 mg/dL (8.4-10.2); Carbon Dioxide 21 mmol/L (22-30); Chloride 98 mmol/L (98-107); Glucose 136 mg/dL (74-99); Non-African American GFR(CKD) >90 (>60 ml/min/1.73 sqM); Potassium 3.2 mmol/L (3.5-5.1); Sodium 137 mmol/L (137-145)
[2022-04-11] MEDS ORDERED: PANTOPRAZOLE 40 MG/10 ML VIAL IV SCH (09:00)
[2022-04-11] MEDS: METOCLOPRAMIDE 5 MG/ML 2 ML VIAL IVP SCH (09:00)
[2022-04-11] MEDS ORDERED: POTASSIUM CHLORIDE ER 20 MEQ TAB.ER PO STA (09:30)
[2022-04-11] MEDS: ENOXAPARIN 40 MG/0.4 ML SYRINGE SQ SCH (09:35)
[2022-04-11] MEDS: metroNIDAZOLE 500 MG TAB PO SCH ×4 (09:35→21:47)
[2022-04-11] MEDS: CIPROFLOXACIN HCL 500 MG TAB PO SCH ×2 (09:35→21:47)
[2022-04-11] MEDS: ATORVASTATIN 10 MG TAB PO SCH (09:36)
[2022-04-11] MEDS: GABAPENTIN 300 MG CAP PO SCH ×2 (09:36→21:47)
[2022-04-11] MEDS: LOSARTAN 50 MG TAB PO SCH (09:36)
[2022-04-11] MEDS: hydroCHLOROthiazide 12.5 MG CAP PO SCH (09:37)
[2022-04-11] MEDS: LACTATED RINGERS 1,000 ML IV SCH ×3 (09:42→18:17)
[2022-04-11 09:52] LABS: Glucose,Whole Blood 132 mg/dL (70-110)
[2022-04-11] MEDS: METOPROLOL SUCCINATE (ER) 25 MG TAB.ER.24H PO SCH (09:52)
[2022-04-11] MEDS: INSULIN ASPART (NovoLOG) 100 UNIT/ML VIAL SQ SCH ×3 (09:56→17:53)
--- NOTE | 2022-04-11 11:41 | P.PN ---
Progress Note - Text Progress Note Date: 04/11/22 Chief Complaint: Nausea vomiting diarrhea History of presenting complaint: This is a 71-year-old patient, Dr. Peters , with chronic stable medical conditions include diabetes, hypertension, hyperlipidemia, memory impairment, osteoarthritis. Patient does live by herself. Patient is in the hospital about 3 weeks ago what was felt to be food poisoning treated with ciprofloxacin and Flagyl responded well discharged home. Last night patient started having several bouts of diarrhea. Initially mushy than watery. Lower abdominal discomfort. Nausea vomiting. Weight diagrammed on. Unable to keep anything down. Vomiting in the ER also. Patient has a morphine pain pump. Patient yesterday had leftover shrimps from the day before. April 11: No vomiting or diaphoresis last night. Abdominal discomfort better. Diet. Getting IV fluids. Spoke to the patient daughter the bedside. We'll have the patient up in a chair. Cutback IV fluids 200 mL an hour. Full liquids with soft bland diet. Increase activity as tolerated. Explain GI services not in the hospital. Active Medications Acetaminophen (Acetaminophen Tab 325 Mg Tab) 650 mg PO Q6HR PRN PRN Reason: Mild Pain or Fever > 100.5 Hydrocodone Bitart/Acetaminophen (Hydrocodone/Apap 5-325mg 1 Each Tab) 1 each PO DAILY PRN PRN Reason: Pain Last Admin: 04/10/22 22:39 Dose: 1 each Amitriptyline HCl (Amitriptyline Hcl 50 Mg Tab) 150 mg PO HS [facility] Last Admin: 04/10/22 23:18 Dose: 150 mg Atorvastatin Calcium (Atorvastatin 10 Mg Tab) 10 mg PO DAILY [facility] Last Admin: 04/11/22 09:36 Dose: 10 mg Baclofen (Baclofen 10 Mg Tab) 10 mg PO DAILY PRN PRN Reason: Muscle Pain Budesonide (Budesonide 1 Mg/2 Ml Nebu) 1 mg INHALATION RT-BID PRN PRN Reason: Shortness Of Breath Last Admin: 04/10/22 20:49 Dose: 1 mg Ciprofloxacin (Ciprofloxacin Hcl 500 Mg Tab) 500 mg PO BID [facility]; Protocol Last Admin: 04/11/22 09:35 Dose: 500 mg Clonidine HCl (Clonidine 0.3 Mg/24hr Patch) 1 patch TRANSDERM Q7D [facility] Last Admin: 04/10/22 22:40 Dose: 1 patch Dextrose/Water (Dextrose 50% Syringe 50 Ml) 25 ml IVP PER PROTOCOL PRN; Protocol PRN Reason: Hypoglycemia Dextrose/Water (Dextrose 50% Syringe 50 Ml) 50 ml IVP PER PROTOCOL PRN; Protocol PRN Reason: Hypoglycemia Diclofenac Sodium (Diclofenac Sodium Gel 100 Gm Tube) 2 gm TOPICAL DAILY PRN; Protocol PRN Reason: Pain Enoxaparin Sodium (Enoxaparin 40 Mg/0.4 Ml Syringe) 40 mg SQ DAILY [facility] Last Admin: 04/11/22 09:35 Dose: 40 mg Gabapentin (Gabapentin 300 Mg Cap) 300 mg PO BID [facility] Last Admin: 04/11/22 09:36 Dose: 300 mg Lactated Ringer's (Lactated Ringers) 1,000 mls @ 100 mls/hr IV .Q10H [facility] Last Admin: 04/11/22 09:42 Dose: 100 mls/hr Insulin Aspart (Insulin Aspart (Novolog) 100 Unit/Ml Vial) 0 unit SQ AC-TID [facility]; Protocol Last Admin: 04/11/22 09:56 Dose: Not Given Losartan Potassium (Losartan 50 Mg Tab) 100 mg PO DAILY [facility] Last Admin: 04/11/22 09:36 Dose: 100 mg Metoclopramide HCl (Metoclopramide 5 Mg Tab) 5 mg PO AC-TID [facility] Metoprolol Succinate (Metoprolol Succinate (Er) 25 Mg Tab.Er.24h) 25 mg PO DAILY [facility] Last Admin: 04/11/22 09:52 Dose: 25 mg Metronidazole (Metronidazole 500 Mg Tab) 500 mg PO QID [facility]; Protocol Last Admin: 04/11/22 09:35 Dose: 500 mg Naloxone HCl (Naloxone 0.4 Mg/Ml 1 Ml Vial) 0.2 mg IV Q2M PRN PRN Reason: Opioid Reversal Morphine Pain Pump (Wear.Injct) 1 dose MISCELLANE DIRECTED [facility] Last Admin: 04/10/22 18:04 Dose: Not Given Ondansetron HCl (Ondansetron 4 Mg/2 Ml Vial) 4 mg IVP Q8HR PRN PRN Reason: Nausea And Vomiting Last Admin: 04/10/22 15:09 Dose: 4 mg Pantoprazole Sodium (Pantoprazole 40 Mg/10 Ml Vial) 40 mg IV DAILY [facility] Last Admin: 04/11/22 09:36 Dose: 40 mg Past medical history to include: Diabetes, hypertension, hyperlipidemia, cognitive impairment, osteoarthritis, stimulator the lumbar spine. Morphine pain pump being followed by Dr. Washburn Social history: Patient smoked a pack and a half a day for 39 years. Stopped about 15 years ago. No alcohol. Lives alone. Uses walker Family history: Stroke, diabetes, bone cancer Physical examination: VITAL SIGNS: 98.8, 99, 18, 189 with 91, 96% room air GENERAL: He planning bed, awake, more comfortable, tired EYES: Pupils equal. Conjunctiva normal. HEENT: External appearance of nose and ears normal, oral cavity dry mucous membranes NECK: JVD not raised; masses not palpable. HEART: First and second heart sounds are normal; no edema. LUNGS: Respiratory rate normal; clear to auscultation. ABDOMEN: Soft, minimal tenderness no guarding rigidity, liver spleen not palpable, no masses palpable. Pain pump PSYCH: AO 3, more affect- anxious NEUROLOGICAL: Cranial nerves grossly intact; no facial asymmetry, power and sensation grossly intact. MUSCULAR skeletal: Evidence of OA INVESTIGATIONS, reviewed in the clinical context: April 11: Potassium 3.2 creatinine 0.62 lactic acid 1.7 WBC 9.1 hemoglobin 12.7 platelets 335 sodium 140 potassium 3.2 creatinine 0.66 Lactic acid 2.8 UA ketones 1+ Urine drug screen positive for opiates, tricyclic antidepressants Computed tomography scan abdomen and pelvis: Unremarkable Assessment and plan: -Acute food poisoning, possibly from shrimp.: Improving IV fluids decreased to 100 mL an hour.. Ciprofloxacin and Flagyl. Reglan. Full liquids with soft bland to be advanced -Diabetes mellitus type 2, on oral hypoglycemic Hold metformin. Accu-Cheks with sliding scale -Diabetic peripheral neuropathy On Neurontin. -Essential hypertension, uncontrolled from not able to take her oral medications and from anxiety Catapres patch 0.2 -Hyperlipidemia Crestor -COPD in a previous smoker-stable Use albuterol when necessary -Primary osteoarthritis Use Tylenol as needed -Mild Cognitive impairment -Type II lactic acidosis from dehydration IV fluids -Chronic pain with chronic spine stimulator. Being managed by IV fluids. Ciprofloxacin Flagyl. Change Reglan to 5 mg before meals 3 times a day. Advance diet. Follow Accu-Cheks. Discussed with patient and daughter. Up in a chair and increased activity. Hopefully discharge in 24 hours.. Pepcid
[2022-04-11] MEDS: ACETAMINOPHEN TAB 325 MG TAB PO PRN (12:20)
[2022-04-11 13:14] LABS: Glucose,Whole Blood 150 mg/dL (70-110)
[2022-04-11] MEDS: METOCLOPRAMIDE 5 MG TAB PO SCH ×2 (13:55→19:44)
[2022-04-11] MEDS: FAMOTIDINE 20 MG TAB PO SCH ×2 (13:55→21:47)
--- NOTE | 2022-04-11 14:19 | P.GSCN ---
History of Present Illness Consult date: 04/11/22 History of present illness: CHIEF COMPLAINT: Nausea vomiting and diarrhea HISTORY OF PRESENT ILLNESS: This is a 71-year-old female who presented to the hospital with complaints of nausea vomiting and diarrhea that started Monday evening after she ate shrimp. Patient did have some low-grade temps. Her last episode of vomiting was last night. Her diarrhea has resolved. Her lower abdominal discomfort is also improving. She had a computed tomography scan of the abdomen and pelvis showing evidence of small hiatal hernia, small fat- containing umbilical hernia and no acute process. Patient is tolerating full liquid diet. She does report that she is feeling better than yesterday. She denies any abdominal pain. Denies any right upper quadrant abdominal pain. Past surgical history includes hysterectomy and bladder suspension. Patient does have a pain pump and a spine stimulator for her chronic pain. PAST MEDICAL HISTORY: See list. PAST SURGICAL HISTORY: See list. MEDICATIONS: See list. ALLERGIES: See list. SOCIAL HISTORY: No illicit drug use. REVIEW OF SYSTEMS: CONSTITUTIONAL: Denies fever or chills. HEENT: Denies blurred vision, vision changes, or eye pain. Denies hemoptysis ENDOCRINE: Denies heat or cold intolerance. CARDIOVASCULAR: Denies chest pain or pressure. RESPIRATORY: No shortness of breath. GASTROINTESTINAL: Please refer to HPI otherwise unremarkable. NEURO: Denies history of seizures. PSYCH: No depression or suicidal ideation HEMATOLOGIC: Denies bleeding disorders. LYMPHATIC: The patient denies any lumps and bumps around the neck. GENITOURINARY: Denies any blood in urine or increased urinary frequency. MUSCULOSKELETAL: Denies myalgias. Denies joint swelling. Denies decreased range of motion beyond patients baseline. SKIN: Denies pruitis. Denies rash. PHYSICAL EXAM: VITAL SIGNS: Reviewed GENERAL: Well-developed in no acute distress. HEENT: No sclera icterus. Extraocular movements grossly intact. Moist buccal mucosa. Head is atraumatic, normocephalic. Hears conversational speech. No nasal drain age. NECK: Supple without lymphadenopathy. CHEST: Non-labored respirations and equal bilateral excursions. CARDIOVASCULAR: Palpable 2+ radial pulses. ABDOMEN: Soft. Nondistended. Nontender MUSCULOSKELETAL: No clubbing or cyanosis. NEUROLOGIC: No focal or lateralizing signs. Cranial nerves II through XII grossly intact. PSYCH: Appropriate affect. Alert and oriented to person, place and time. SKIN: Well perfused. Good skin turgor. LABORATORY DATA: WBC 9.1 HGB 12.7 platelets 335 Sodium 137 potassium 3.2 creatinine 0.62 Lactic acid 4.9 down to 1.7 Magnesium 1.6 LFTs normal Urine drug screen positive for opiates and tricyclic antidepressants IMAGING: Computed tomography scan abdomen and pelvis no evidence for acute intra- abdominal process. Small hiatal hernia. Small fat-containing umbilical hernia. Grade 1 anterior listhesis of L1 and L5 ASSESSMENT: 1. Nausea, vomiting and diarrhea with lower abdominal discomfort likely due to food poisoning from shrimp 2. Hypokalemia 3. Chronic back pain 4. Diabetes mellitus PLAN: -Patient's symptoms are improving. We'll advance diet to regular. -Patient can be discharged from surgical standpoint if tolerating regular diet -No surgical intervention planned -Continue to correct potassium Thank you for this consultation Physician Guest Associate note has been reviewed by physician. Signing provider agrees with the documented findings, assessment, and plan of care. Past Medical History Past Medical History: CVA/TIA, Diabetes Mellitus, Hyperlipidemia, Hypertension, Memory Impairment, Musculoskeletal Disorder, Osteoarthritis (OA), Pneumonia Additional Past Medical History / Comment(s): BACK PAIN; TIA 2016, Pneumonia, possible heart palpitations-patient states was told about but doesn't remember experiencing this History of Any Multi-Drug Resistant Organisms: None Reported Past Surgical History: Bladder Surgery, Breast Surgery, Hysterectomy, Orthopedic Surgery Additional Past Surgical History / Comment(s): neurostimulator lower lumbar 06/2013 current. hammer toe 10/22,. breast reduction 2004. BLADDER SUSPENSION 2004, Morphine pain pump . LT BREAST BX, BILAT CATARACT SX Past Anesthesia/Blood Transfusion Reactions: No Reported Reaction Past Psychological History: No Psychological Hx Reported Smoking Status: Former smoker Past Alcohol Use History: None Reported Additional Past Alcohol Use History / Comment(s): smoked 39 years 1 1/2ppd quit age 54 Past Drug Use History: None Reported - Past Family History Mother Family Medical History: CVA/TIA, Diabetes Mellitus Father Additional Family Medical History / Comment(s): bone cancer Brother(s) Family Medical History: Diabetes Mellitus Additional Family Medical History / Comment(s): bone cancer Sister(s) Family Medical History: Diabetes Mellitus Medications and Allergies Home Medications Medication Instructions Recorded Confirmed Type Amitriptyline HCl [Elavil] 150 mg PO HS 01/11/15 04/10/22 History Diclofenac Sodium [Voltaren Gel] 1 applic TOPICAL DAILY PRN 11/12/17 04/10/22 History Losartan/Hydrochlorothiazide 1 tab PO DAILY 11/12/17 04/10/22 History [Losartan-Hctz 100-12.5 mg Tab] Fluticasone Nasal [place] [Flonase 1 spray EA NOSTRIL DAILY PRN 12/12/17 04/10/22 History Nasal [place]] Rosuvastatin Calcium [Crestor] 5 mg PO DAILY 01/17/18 04/10/22 History metFORMIN HCL [Glucophage] 500 mg PO BID 11/18/19 04/10/22 History Metoprolol Succinate (ER) [Toprol 25 mg PO DAILY 11/04/20 04/10/22 History XL] Morphine Pain Pump 1 dose INTRATHECA DIRECTED 11/04/20 04/10/22 History Potassium Chloride ER [K-Dur 10] 20 meq PO BID 11/04/20 04/10/22 History Baclofen [Lioresal] 10 mg PO DAILY PRN 04/10/22 04/10/22 History Budesonide 1 mg INHALATION RT-BID PRN 04/10/22 04/10/22 History Etodolac 400 mg PO BID 04/10/22 04/10/22 History Furosemide [Lasix] 20 mg PO DAILY 04/10/22 04/10/22 History Gabapentin 300 mg PO BID 04/10/22 04/10/22 History HYDROcodone/APAP 5-325MG [[place] 1 tab PO DAILY PRN 04/10/22 04/10/22 History 5-325] Allergies Allergy/AdvReac Type Severity Reaction Status Date / Time dog dander Allergy ALLERGY Verified 04/10/22 11:53 SYMPTOMS mold Allergy ALLERGY Verified 04/10/22 11:53 SYMPTOMS dust mites Allergy ALLERGY Uncoded 04/10/22 07:25 SYMPTOMS Surgical - Exam Vital Signs Temp Pulse Resp BP Pulse Ox 98.6 F 104 H 18 208/89 98 04/10/22 07:17 04/10/22 07:17 04/10/22 07:17 04/10/22 07:17 04/10/22 07:17 Results - Labs 04/10/22 08:09 04/11/22 00:10 Abnormal Lab Results - Last 24 Hours (Table) 04/10/22 04/10/22 04/10/22 Range/Units 11:10 15:20 17:40 Potassium (3.5-5.1) mmol/L Carbon Dioxide (22-30) mmol/L Glucose (74-99) mg/dL POC Glucose (mg/dL) 170 H (70-110) mg/dL Plasma Lactic Acid Erik 3.2 H* 3.3 H* (0.7-2.0) mmol/L 04/10/22 04/11/22 04/11/22 Range/Units 20:33 00:10 09:50 Potassium 3.2 L (3.5-5.1) mmol/L Carbon Dioxide 21 L (22-30) mmol/L Glucose 136 H (74-99) mg/dL POC Glucose (mg/dL) 132 H (70-110) mg/dL Plasma Lactic Acid Erik 4.9 H* (0.7-2.0) mmol/L Diabetes panel 04/11/22 Range/Units 00:10 Sodium 137 (137-145) mmol/L Potassium 3.2 L (3.5-5.1) mmol/L Chloride 98 (98-107) mmol/L Carbon Dioxide 21 L (22-30) mmol/L BUN 8 (7-17) mg/dL Creatinine 0.62 (0.52-1.04) mg/dL Glucose 136 H (74-99) mg/dL Calcium 10.1 (8.4-10.2) mg/dL Calcium panel 04/11/22 Range/Units 00:10 Calcium 10.1 (8.4-10.2) mg/dL Pituitary panel 04/11/22 Range/Units 00:10 Sodium 137 (137-145) mmol/L Potassium 3.2 L (3.5-5.1) mmol/L Chloride 98 (98-107) mmol/L Carbon Dioxide 21 L (22-30) mmol/L BUN 8 (7-17) mg/dL Creatinine 0.62 (0.52-1.04) mg/dL Glucose 136 H (74-99) mg/dL Calcium 10.1 (8.4-10.2) mg/dL Adrenal panel 04/11/22 Range/Units 00:10 Sodium 137 (137-145) mmol/L Potassium 3.2 L (3.5-5.1) mmol/L Chloride 98 (98-107) mmol/L Carbon Dioxide 21 L (22-30) mmol/L BUN 8 (7-17) mg/dL Creatinine 0.62 (0.52-1.04) mg/dL Glucose 136 H (74-99) mg/dL Calcium 10.1 (8.4-10.2) mg/dL
[2022-04-11 17:02] LABS: Glucose,Whole Blood 130 mg/dL (70-110)
[2022-04-11] MEDS: cloNIDine HCL 0.2 MG TAB PO SCH ×2 (17:29→21:47)
[2022-04-11] MEDS: HYDROcodone/APAP 5-325MG 1 EACH TAB PO PRN (18:34)
[2022-04-11] MEDS: MORPHINE MISCELLANE SCH (20:33)
[2022-04-11] MEDS ORDERED: cloNIDine HCL 0.1 MG TAB PO SCH (21:00)
[2022-04-11] MEDS: AMITRIPTYLINE HCL 50 MG TAB PO SCH (21:47)
[2022-04-11 22:19] LABS: Glucose,Whole Blood 177 mg/dL (70-110)
[2022-04-12] MEDS: LACTATED RINGERS 1,000 ML IV SCH (05:15)
[2022-04-12] MEDS: ACETAMINOPHEN TAB 325 MG TAB PO PRN (05:23)
[2022-04-12 05:44] VITALS: RESP 16
[2022-04-12 07:40] LABS: Glucose,Whole Blood 120 mg/dL (70-110)
[2022-04-12] MEDS: INSULIN ASPART (NovoLOG) 100 UNIT/ML VIAL SQ SCH ×2 (07:52→14:25)
[2022-04-12] MEDS: ATORVASTATIN 10 MG TAB PO SCH (08:22)
[2022-04-12] MEDS: ENOXAPARIN 40 MG/0.4 ML SYRINGE SQ SCH (08:22)
[2022-04-12] MEDS: LOSARTAN 50 MG TAB PO SCH (08:22)
[2022-04-12] MEDS: cloNIDine HCL 0.2 MG TAB PO SCH (08:22)
[2022-04-12] MEDS: METOPROLOL SUCCINATE (ER) 25 MG TAB.ER.24H PO SCH (08:22)
[2022-04-12] MEDS: GABAPENTIN 300 MG CAP PO SCH (08:22)
[2022-04-12] MEDS: FAMOTIDINE 20 MG TAB PO SCH (08:23)
[2022-04-12] MEDS: metroNIDAZOLE 500 MG TAB PO SCH ×2 (08:23→14:31)
[2022-04-12] MEDS: CIPROFLOXACIN HCL 500 MG TAB PO SCH (08:23)
[2022-04-12] MEDS: METOCLOPRAMIDE 5 MG TAB PO SCH ×2 (08:23→14:28)
[2022-04-12] MEDS: MAGNESIUM SULFATE-D5W PMX 1 GM in DEXTROSE/WATER 1 100ML.BAG IVPB SCH ×2 (08:28→11:20)
[2022-04-12 08:30] VITALS: BP 163/88; PULSE 75; TEMP 98
[2022-04-12 10:14] LABS: African American GFR (CKD) 82 (>60 ml/min/1.73 sqM); Anion Gap 11 mmol/L; Blood Urea Nitrogen 14 mg/dL (7-17); Carbon Dioxide 29 mmol/L (22-30); Chloride 97 mmol/L (98-107); Glucose 166 mg/dL (74-99); Non-African American GFR(CKD) 71 (>60 ml/min/1.73 sqM); Sodium 137 mmol/L (137-145)
--- NOTE | 2022-04-12 11:39 | P.PN ---
Subjective Progress Note Date: 04/12/22 CHIEF COMPLAINT: Nausea, vomiting and diarrhea HISTORY OF PRESENT ILLNESS: This is a 71-year-old female who presented to the hospital with complaints of nausea vomiting and diarrhea that started Monday e after she ate shrimp. Patient reports that she is feeling better today. She's had no further vomiting or diarrhea. Her abdominal pain is resolved. She is tolerating regular diet. She has been up and ambulating. She's afebrile. Her magnesium is being replaced. Afebrile. Magnesium was 1.5. Sodium is 137 potassium is 3.0 creatinine 0.83 PHYSICAL EXAM: VITAL SIGNS: Reviewed GENERAL: Well-developed in no acute distress. HEENT: No sclera icterus. Extraocular movements grossly intact. Moist buccal mucosa. Head is atraumatic, normocephalic. Hears conversational speech. No nasal drainage. NECK: Supple without lymphadenopathy. CHEST: Non-labored respirations and equal bilateral excursions. CARDIOVASCULAR: Palpable 2+ radial pulses. ABDOMEN: Soft. Nondistended. Nontender. MUSCULOSKELETAL: No clubbing or cyanosis. NEUROLOGIC: No focal or lateralizing signs. Cranial nerves II through XII grossly intact. PSYCH: Appropriate affect. Alert and oriented to person, place and time. SKIN: Well perfused. Good skin turgor. ASSESSMENT: 1. Nausea, vomiting and diarrhea with lower abdominal discomfort likely due to food poisoning from shrimp 2. Hypokalemia 3. Chronic back pain 4. Diabetes mellitus 5. Hypomagnesemia PLAN: -Patient's nausea, vomiting, diarrhea and abdominal pain have resolved. She is tolerating diet. She is stable from surgical standpoint for discharge. -Potassium replacement ordered Physician Clinic Physician Director note has been reviewed by physician. Signing provider agrees with the documented findings, assessment, and plan of care. Objective - Vital Signs Vital signs: Vital Signs Temp 98.0 F 04/12/22 07:00 Pulse 75 04/12/22 07:00 Resp 16 04/12/22 07:00 BP 163/88 04/12/22 07:00 Pulse Ox 98 04/12/22 07:00 FiO2 Intake & Output 04/11/22 04/12/22 04/12/22 18:59 06:59 18:59 Intake Total 473 Balance 473 Intake: Oral 473 Other: Voiding Method Bedside Commode Bedside Commode # Voids 3 3 - Labs CBC & Chem 7: 04/10/22 08:09 04/12/22 09:52 Labs: Abnormal Lab Results - Last 24 Hours (Table) 04/11/22 04/11/22 04/11/22 Range/Units 13:13 15:03 17:00 Potassium (3.5-5.1) mmol/L Chloride (98-107) mmol/L Glucose (74-99) mg/dL POC Glucose (mg/dL) 150 H 130 H (70-110) mg/dL Magnesium 1.5 L (1.6-2.3) mg/dL 04/11/22 04/12/22 04/12/22 Range/Units 22:18 07:38 09:52 Potassium 3.0 L (3.5-5.1) mmol/L Chloride 97 L (98-107) mmol/L Glucose 166 H (74-99) mg/dL POC Glucose (mg/dL) 177 H 120 H (70-110) mg/dL Magnesium (1.6-2.3) mg/dL
[2022-04-12] MEDS ORDERED: METOPROLOL TARTRATE 50 MG TAB PO SCH (12:00)
[2022-04-12 12:05] LABS: Glucose,Whole Blood 127 mg/dL (70-110)
[2022-04-12] MEDS: POTASSIUM CHLORIDE ER 20 MEQ TAB.ER PO SCH ×2 (12:20→14:28)
--- NOTE | 2022-04-12 16:37 | P.DS ---
Providers Date of admission: 04/10/22 10:25 Expected date of discharge: 04/12/22 Attending physician: Elias Gautam Consults: 04/10/22 10:37 Consult Physician Routine Consulting Provider: Ro Burns Consult Reason/Comments: Abdominal pain, intractable nausea vomiting Do you want consulting provider notified?: Yes Primary care physician: Tan Peters [facility] Course: Chief Complaint: Nausea vomiting diarrhea History of presenting complaint: This is a 71-year-old patient, Dr. Peters , with chronic stable medical conditions include diabetes, hypertension, hyperlipidemia, memory impairment, osteoarthritis. Patient does live by herself. Patient is in the hospital about 3 weeks ago what was felt to be food poisoning treated with ciprofloxacin and Flagyl responded well discharged home. Last night patient started having several bouts of diarrhea. Initially mushy than watery. Lower abdominal discomfort. Nausea vomiting. Weight diagrammed on. Unable to keep anything down. Vomiting in the ER also. Patient has a morphine pain pump. Patient yesterday had leftover shrimps from the day before. April 11: No vomiting or diaphoresis last night. Abdominal discomfort better. Diet. Getting IV fluids. Spoke to the patient daughter the bedside. We'll have the patient up in a chair. Cutback IV fluids 200 mL an hour. Full liquids with soft bland diet. Increase activity as tolerated. Explain GI services not in the hospital. April 12: A bit tired. No further nausea vomiting. No abdominal pain. No diarrhea. Patient given a breakfast she could not day including sausages. Discussed with her daughter on the phone. Patient will be staying with her. Diet discussed. DC home today. Complete 2 more days of Cipro and Flagyl. Discussed the nurse. Discussion and discharge planning more than 35 minutes Past medical history to include: Diabetes, hypertension, hyperlipidemia, cognitive impairment, osteoarthritis, s timulator the lumbar spine. Morphine pain pump being followed by Dr. Washburn Social history: Patient smoked a pack and a half a day for 39 years. Stopped about 15 years ago. No alcohol. Lives alone. Uses walker Family history: Stroke, diabetes, bone cancer Physical examination: VITAL SIGNS: 98, 75, 16, 1 63 x 88, 98% room air GENERAL: Laying in bed, awake, comfortable EYES: Pupils equal. Conjunctiva normal. HEENT: External appearance of nose and ears normal, oral cavity dry mucous membranes NECK: JVD not raised; masses not palpable. HEART: First and second heart sounds are normal; no edema. LUNGS: Respiratory rate normal; clear to auscultation. ABDOMEN: Soft, no tenderness no guarding rigidity, liver spleen not palpable, no masses palpable. Pain pump PSYCH: AO 3, more affect-less anxious NEUROLOGICAL: Cranial nerves grossly intact; no facial asymmetry, power and sensation grossly intact. MUSCULAR skeletal: Evidence of OA INVESTIGATIONS, reviewed in the clinical context: April 11: Potassium 3.2 creatinine 0.62 lactic acid 1.7 WBC 9.1 hemoglobin 12.7 platelets 335 sodium 140 potassium 3.2 creatinine 0.66 Lactic acid 2.8 UA ketones 1+ Urine drug screen positive for opiates, tricyclic antidepressants Computed tomography scan abdomen and pelvis: Unremarkable Assessment and plan: -Acute food poisoning, possibly from shrimp.: Much better IV fluids . Ciprofloxacin and Flagyl-2 days. Soft bland diet -Diabetes mellitus type 2, on oral hypoglycemic metformin. Accu-Cheks with sliding scale -Diabetic peripheral neuropathy On Neurontin. -Essential hypertension, uncontrolled from not able to take her oral medications and from anxiety Metoprolol 100 mg twice a day -Hyperlipidemia Crestor -COPD in a previous smoker-stable Use albuterol when necessary -Primary osteoarthritis Use Tylenol as needed -Mild Cognitive impairment -Type II lactic acidosis from dehydration IV fluids -Chronic pain with chronic spine stimulator. Being managed by Disposition: Home Plan - Discharge Summary New Discharge Prescriptions: New Metoprolol Tartrate [Lopressor] 100 mg PO BID #60 tablet Ciprofloxacin HCl [Cipro] 500 mg PO BID #4 tab metroNIDAZOLE [Flagyl] 500 mg PO QID #8 tab Famotidine [Pepcid] 20 mg PO BID #60 tab Continue Amitriptyline HCl [Elavil] 150 mg PO HS Losartan/Hydrochlorothiazide [Losartan-Hctz 100-12.5 mg Tab] 1 tab PO DAILY Diclofenac Sodium [Voltaren Gel] 1 applic TOPICAL DAILY PRN PRN Reason: Pain Fluticasone Nasal [place] [Flonase Nasal [place]] 1 spray EA NOSTRIL DAILY PRN PRN Reason: Allergy Symptoms Rosuvastatin Calcium [Crestor] 5 mg PO DAILY metFORMIN HCL [Glucophage] 500 mg PO BID Morphine Pain Pump 1 dose INTRATHECA DIRECTED Baclofen [Lioresal] 10 mg PO DAILY PRN PRN Reason: Muscle Pain HYDROcodone/APAP 5-325MG [[place] 5-325] 1 tab PO DAILY PRN PRN Reason: Pain Gabapentin 300 mg PO BID Budesonide 1 mg INHALATION RT-BID PRN PRN Reason: Shortness Of Breath Discontinued Metoprolol Succinate (ER) [Toprol XL] 25 mg PO DAILY No Action Etodolac 400 mg PO BID Potassium Chloride ER [K-Dur 10] 20 meq PO BID Furosemide [Lasix] 20 mg PO DAILY Discharge Medication List Amitriptyline HCl [Elavil] 150 mg PO HS 01/11/15 [History] Diclofenac Sodium [Voltaren Gel] 1 applic TOPICAL DAILY PRN 11/12/17 [History] Losartan/Hydrochlorothiazide [Losartan-Hctz 100-12.5 mg Tab] 1 tab PO DAILY 11/12/17 [History] Fluticasone Nasal [place] [Flonase Nasal [place]] 1 spray EA NOSTRIL DAILY PRN 12/12/17 [History] Rosuvastatin Calcium [Crestor] 5 mg PO DAILY 01/17/18 [History] metFORMIN HCL [Glucophage] 500 mg PO BID 11/18/19 [History] Morphine Pain Pump 1 dose INTRATHECA DIRECTED 11/04/20 [History] Potassium Chloride ER [K-Dur 10] 20 meq PO BID 11/04/20 [History] Baclofen [Lioresal] 10 mg PO DAILY PRN 04/10/22 [History] Budesonide 1 mg INHALATION RT-BID PRN 04/10/22 [History] Etodolac 400 mg PO BID 04/10/22 [History] Furosemide [Lasix] 20 mg PO DAILY 04/10/22 [History] Gabapentin 300 mg PO BID 04/10/22 [History] HYDROcodone/APAP 5-325MG [[place] 5-325] 1 tab PO DAILY PRN 04/10/22 [History] Ciprofloxacin HCl [Cipro] 500 mg PO BID #4 tab 04/12/22 [Rx] Famotidine [Pepcid] 20 mg PO BID #60 tab 04/12/22 [Rx] Metoprolol Tartrate [Lopressor] 100 mg PO BID #60 tablet 04/12/22 [Rx] metroNIDAZOLE [Flagyl] 500 mg PO QID #8 tab 04/12/22 [Rx] Follow up Appointment(s)/Referral(s): Tan Peters DO [Primary Care Provider] - 1-2 days Desiree Ravi MD [STAFF PHYSICIAN] - 1 Week Discharge Disposition: HOME SELF-CARE
== END 2022-04-12 16:02 | disposition home or self-care (01) ==
LOC: EC 07:15 → 6NMEDSUR 10:25
PROVIDERS: ADMIT Hospitalist; ATTEND Hospitalist
DX: A05.9 Bacterial foodborne intoxication, unspecified (principal); E86.0 Dehydration; E87.6 Hypokalemia; E11.42 Type 2 diabetes mellitus with diabetic polyneuropathy; E78.5 Hyperlipidemia, unspecified; I11.9 Hypertensive heart disease without heart failure; I25.10 Atherosclerotic heart disease of native coronary artery without angina pectoris; K42.9 Umbilical hernia without obstruction or gangrene; E87.20 Acidosis, unspecified; K44.9 Diaphragmatic hernia without obstruction or gangrene; J44.9 Chronic obstructive pulmonary disease, unspecified; G89.29 Other chronic pain; E83.42 Hypomagnesemia; G31.84 Mild cognitive impairment of uncertain or unknown etiology; Z79.899 Other long term (current) drug therapy; Z79.84 Long term (current) use of oral hypoglycemic drugs; Z79.82 Long term (current) use of aspirin; Z86.73 Personal history of transient ischemic attack (TIA), and cerebral infarction without residual deficits; Z98.42 Cataract extraction status, left eye; Z98.41 Cataract extraction status, right eye; Z90.710 Acquired absence of both cervix and uterus; Z87.891 Personal history of nicotine dependence; Z83.3 Family history of diabetes mellitus; Z82.3 Family history of stroke; Z80.8 Family history of malignant neoplasm of other organs or systems
CPT/HCPCS: 96372 ×3; 96375 ×2; 96376 ×2; 96365 ×2; 96366 ×2; 96361; 99285; 36415; 94640; 80053; 80048 ×2; 83605 ×2; 83735 ×2; 85025; 81003; 80306; 74176; G0378 ×3; J2270 ×2; J2765; J2405; J1650 ×3; J3475; J3480; C9113

== ENCOUNTER → 2022-05-26 | Outpatient (CLI) | payer MEDICARE, OTHER ==
--- NOTE | 2022-05-26 15:07 | CT ---
EXAMINATION TYPE: CT angio head CT DLP: 2185.30 mGycm, Automated exposure control for dose reduction was used. DATE OF EXAM: 05/26/2022 2:58 PM COMPARISON: 10/27/2020. CLINICAL INDICATION:Female, 72 years old with history of TIA Z86.73; [facility], HX of TIAs. TECHNIQUE: Axially acquired helical CT angiogram of the head and neck was obtained with contrast util izing 75 cc of Isovue-370 administered intravenously. Axial images are supplemented with 3D reconstru ctions which were post-processed at an independent workstation. NASCET criteria used. FINDINGS: No evidence of acute intracranial hemorrhage, mass effect, or midline shift. The ventricles, sulci, a nd cisterns are unremarkable. The visualized portions of the internal carotid arteries, middle cerebral arteries, anterior cerebral arteries, and posterior cerebral arteries are patent. The basilar and vertebral arteries are patent. Bilateral aphakia. Cavum septum pellucidum noted. IMPRESSION: No evidence of high-grade stenosis or intracranial aneurysm.
== END | disposition home or self-care (01) ==
LOC: RADCTMAIN 12:51
PROVIDERS: ATTEND Psychiatry & Neurology Neurology
DX: Z86.73 Personal history of transient ischemic attack (TIA), and cerebral infarction without residual deficits (principal); Z87.59 Personal history of other complications of pregnancy, childbirth and the puerperium
CPT/HCPCS: 82565; 84520; 70496; 36415; Q9967

== ENCOUNTER → 2022-06-27 | Outpatient (CLI) | payer MEDICARE, OTHER ==
--- NOTE | 2022-06-27 13:33 | MM ---
Reason for Exam: Additional evaluation requested from prior study. Last screening mammogram was performed 12 month(s) ago. Patient History: Menarche at age 12. First Full-Term at age 21. Left ovary removed at age 40. Right ovary removed at age 40. Hysterectomy at age 40. Postmenopausal. Estrogen for 3 years from age 40 until age 43. Hormonal Contraceptives for 8 years from age 16 until age 24. 01/2005, Bilateral Reduction. 11/19/2019, High risk Core Biopsy on the left side. 08/14/2019, High risk Core Biopsy on the left side. 01/23/2018, Benign Core Biopsy on the right side. 12/18/2017, High risk Core Biopsy on the right side. 12/15/2015, Benign Core Biopsy on the left side. 12/15/2015, Benign Cyst Aspiration on the left side. 12/15/2015, Benign Core Biopsy on the left side. 12/15/2015, Benign Core Biopsy on the left side. Risk Values: Suri 5 year model risk: 2.4%. NCI Lifetime model risk: 5.8%. Tissue Density: The breast tissue is heterogeneously dense. This may lower the sensitivity of mammography. Findings: Analyzed By CAD. There are surgical clips and distortion in the right breast redemonstrated centrally. Surgical clips and distortion posterior outer left breast redemonstrated. Additional two mammotome biopsy clips scattered throughout the left redemonstrated. Benign-appearing Bilateral axillary lymph nodes. Overall Assessment: Benign, BI-RAD 2 Management: Screening Mammogram of both breasts in 1 year. A clinical breast exam by your physician is recommended on an annual basis and results should be correlated with mammographic findings. This exam should not preclude additional follow-up of suspicious palpable abnormalities. Results were given to the patient verbally at the time of exam. Electronically signed and approved by: Teddy Avendano M.D.
== END | disposition home or self-care (01) ==
LOC: RADMAMWWP 12:45
PROVIDERS: ATTEND Surgery
DX: R92.8 Other abnormal and inconclusive findings on diagnostic imaging of breast (principal); Z78.0 Asymptomatic menopausal state; Z98.890 Other specified postprocedural states
CPT/HCPCS: 77066; G0279; 77062

== ENCOUNTER → 2022-07-14 | Outpatient (CLI) | payer MEDICARE, OTHER ==
[2022-07-14 14:56] VITALS: BP 144/86; PULSE 84; RESP 18; TEMP 97.8
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
== END ==
LOC: WWCWWP 14:39
PROVIDERS: ATTEND Surgery
DX: R92.8 Other abnormal and inconclusive findings on diagnostic imaging of breast (principal); E11.9 Type 2 diabetes mellitus without complications; I63.9 Cerebral infarction, unspecified; Z87.891 Personal history of nicotine dependence; Z77.120 Contact with and (suspected) exposure to mold (toxic); Z91.018 Allergy to other foods; Z91.048 Other nonmedicinal substance allergy status

== ENCOUNTER → 2023-06-29 | Outpatient (CLI) | payer MEDICARE, OTHER ==
--- NOTE | 2023-07-05 12:25 | MM ---
Reason for Exam: Screening (asymptomatic). Last screening mammogram was performed 12 month(s) ago. Patient History: Menarche at age 12. First Full-Term at age 21. Left ovary removed at age 40. Right ovary removed at age 40. Hysterectomy at age 40. Postmenopausal. Estrogen for 3 years from age 40 until age 43. Hormonal Contraceptives for 8 years from age 16 until age 24. 01/2005, Bilateral Reduction. 11/19/2019, High risk Core Biopsy on the left side. 08/14/2019, High risk Core Biopsy on the left side. 01/23/2018, Benign Core Biopsy on the right side. 12/18/2017, High risk Core Biopsy on the right side. 12/15/2015, Benign Core Biopsy on the left side. 12/15/2015, Benign Cyst Aspiration on the left side. 12/15/2015, Benign Core Biopsy on the left side. 12/15/2015, Benign Core Biopsy on the left side. Risk Values: Suri 5 year model risk: 1.9%. NCI Lifetime model risk: 4.2%. Prior Study Comparison: 05/25/2020 Bilateral Diagnostic Mammogram, [facility]. 06/24/2021 Bilateral Diagnostic Mammogram, [facility]. 06/27/2022 Bilateral MG 3D diag mammo w/cad SIRENA, [facility]. Tissue Density: The breast tissue is heterogeneously dense. This may lower the sensitivity of mammography. Findings: Analyzed By CAD. Bilateral breast surgical clips. Left breast biopsy clip. Benign-appearing calcifications bilaterally. There is no suspicious group of microcalcifications or new suspicious mass. Overall Assessment: Benign, BI-RAD 2 Management: Screening Mammogram of both breasts in [address] [facility] will attempt to contact patient to return for supplemental views and ultrasound if indicated. Patient should continue monthly self-breast exams. A clinical breast exam by your physician is recommended on an annual basis. This exam should not preclude additional follow-up of suspicious palpable abnormalities. Note on Suri scores and lifetime risk: 1. A Suri score greater than 3% is considered moderate risk. If this is the case, consider specialist referral to assess eligibility for a risk reducing agent. 2. If overall lifetime risk for the development of breast cancer is 20% or higher, the patient may qualify for future screening with alternating mammogram and breast MRI. Electronically signed and approved by: Salvador Tijerina DO
== END | disposition home or self-care (01) ==
LOC: RADMAMWWP 09:14
PROVIDERS: ATTEND Surgery
DX: Z12.31 Encounter for screening mammogram for malignant neoplasm of breast (principal); Z78.0 Asymptomatic menopausal state
CPT/HCPCS: 77063; 77067

== ENCOUNTER → 2023-07-14 | Outpatient (CLI) | payer MEDICARE, OTHER ==
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
== END ==
LOC: WWCWWP 12:40
PROVIDERS: ATTEND Surgery
DX: Z12.31 Encounter for screening mammogram for malignant neoplasm of breast (principal); N60.12 Diffuse cystic mastopathy of left breast; E11.9 Type 2 diabetes mellitus without complications; F17.210 Nicotine dependence, cigarettes, uncomplicated; Z86.73 Personal history of transient ischemic attack (TIA), and cerebral infarction without residual deficits; Z87.19 Personal history of other diseases of the digestive system; Z90.710 Acquired absence of both cervix and uterus; Z91.09 Other allergy status, other than to drugs and biological substances; Z91.048 Other nonmedicinal substance allergy status; Z79.84 Long term (current) use of oral hypoglycemic drugs; Z79.899 Other long term (current) drug therapy